=== PATIENT | female | born 1945 | race American Indian/Alaskan Native ===

== ENCOUNTER 2017-03-14 08:09 | Emergency (ER) | payer OTHER ==
[2017-03-14 08:13] VITALS: BP 142/69; PULSE 62; RESP 18; TEMP 97.9; O2SAT 99
[2017-03-14] MEDS ORDERED: Sodium Chloride 0.9% 1,000 ML IV STA (08:19)
--- NOTE | 2017-03-14 08:23 | ED PDOC ---
HPI: General Adult Time Seen by Provider: 03/14/17 08:13 Chief Complaint (Nursing): Dizziness/Lightheaded Chief Complaint (Provider): Dizziness/Lightheaded History Per: Patient History/Exam Limitations: no limitations Onset/Duration Of Symptoms: Days Current Symptoms Are (Timing): Still Present Severity: Moderate Additional Complaint(s): Patient is a 72 year old female who presents to ED for evaluation of dizziness with nausea for 2 weeks. Patient notes symptoms worse with head movement. Denies headache, head injury, chest pain, palpations, syncope or vision change. Past Medical History Reviewed: Historical Data, Nursing Documentation, Vital Signs Vital Signs: Last Vital Signs Temp 97.9 F 03/14/17 08:12 Pulse 62 03/14/17 08:12 Resp 18 03/14/17 08:12 BP 142/69 03/14/17 08:12 Pulse Ox 99 03/14/17 08:23 - Medical History PMH: Diabetes, HIV, HTN, Hypercholesterolemia Denies: Chronic Kidney Disease - Surgical History Surgical History: Appendectomy, Cholecystectomy - Family History Family History: States: Hypertension - Living Arrangements Living Arrangements: With Family - Immunization History Hx Influenza Vaccination: Yes Hx Pneumococcal Vaccination: Yes - Home Medications Home Medications: Ambulatory Orders Medication Instructions Recorded Apixaban [Eliquis] 1 tab PO BID 09/19/16 Emtricitabine/Tenofovir Diso 1 tab PO DAILY 09/19/16 [Truvada 200 MG-300 MG] Gabapentin [Neurontin] 1 cap PO TID 09/19/16 Meclizine HCl 1 tab PO BID 09/19/16 Meloxicam [Mobic] 1 tab PO DAILY 09/19/16 Oxybutynin Chloride [Oxybutynin 1 tab PO DAILY 09/19/16 Chloride ER] Raltegravir Potassium [Isentress] 1 tab PO BID 09/19/16 Ranitidine HCl [Zantac] 1 tab PO DAILY 09/19/16 Meclizine [Meclizine*] 25 mg PO Q8 #15 tab 03/14/17 Ondansetron [Zofran] 4 mg PO Q8H #10 tab 03/14/17 - Allergies Allergies/Adverse Reactions: Allergies Allergy/AdvReac Type Severity Reaction Status Date / Time No Known Allergies Allergy Verified 09/19/16 18:53 Review of Systems ROS Statement: Except As Marked, All Systems Reviewed And Found Negative Constitutional: Negative for: Weakness Cardiovascular: Negative for: Chest Pain, Palpitations, Light Headedness Respiratory: Negative for: Shortness of Breath Gastrointestinal: Positive for: Nausea. Negative for: Vomiting, Abdominal Pain Musculoskeletal: Negative for: Neck Pain, Back Pain Neurological: Positive for: Dizziness. Negative for: Weakness, Numbness, Headache Physical Exam - Reviewed Nursing Documentation Reviewed: Yes Vital Signs Reviewed: Yes - Physical Exam Appears: Positive for: Non-toxic, No Acute Distress Head Exam: Positive for: ATRAUMATIC, NORMAL INSPECTION Skin: Positive for: Normal Color, Warm Eye Exam: Positive for: Normal appearance, EOMI, PERRL. Negative for: Nystagmus Neck: Positive for: Normal, Painless ROM, Supple Cardiovascular/Chest: Positive for: Regular Rate, Rhythm, Chest Non Tender. Negative for: Murmur Respiratory: Positive for: Normal Breath Sounds. Negative for: Respiratory Distress Extremity: Positive for: Normal ROM. Negative for: Pedal Edema, Calf Tenderness Neurologic/Psych: Positive for: Alert, Oriented. Negative for: Motor/Sensory Deficits - Laboratory Results Result Diagrams: 03/14/17 09:01 03/14/17 09:01 - ECG O2 Sat by Pulse Oximetry: 99 (RA) Pulse Ox Interpretation: Normal Medical Decision Making Medical Decision Making: Time: 0815 Initial impression: Dizziness Initial plan: -- EKG -- CMP -- CBC -- NSF, Zofran and Antivert Scribe Attestation: Documented by Lisa Carvajal acting as a scribe for Rome Mcrae MD MD Scribe Attestation: All medical record entries made by the Scribe were at my direction and personally dictated by me. I have reviewed the chart and agree that the record accurately reflects my personal performance of the history, physical exam, medical decision making, and the department course for this patient. I have also personally directed, reviewed, and agree with the discharge instructions and disposition. Disposition - Clinical Impression Clinical Impression: Vertigo - Patient ED Disposition Is Patient to be Admitted: No Counseled Patient/Family Regarding: Studies Performed, Diagnosis, Need For Followup, Rx Given - Disposition Referrals: [facility] [Outside] Disposition: Routine/Home Disposition Time: 10:09 Condition: FAIR Prescriptions: Meclizine [Meclizine*] 25 mg PO Q8 #15 tab Ondansetron [Zofran] 4 mg PO Q8H #10 tab Instructions: Vertigo (ED) Print Language: SETSWANA
[2017-03-14 09:39] LABS: BASO # 0.1 K/uL (0.0-0.2); BASO % 2.1 % (0.0-2.0); EOS # 0.3 K/uL (0.0-0.7); EOS % 4.4 % (0.0-4.0); HEMATOCRIT 32.9 % (34.0-47.0); LYMPH # 0.6 K/uL (1.0-4.3); LYMPH % 9.7 % (20.0-40.0); MEAN CELL VOLUME 85.2 fl (81.0-99.0); MEAN CORPUSCULAR HEMOGLOBIN 28.1 pg (27.0-31.0); MEAN PLATELET VOLUME 8.4 fl (7.2-11.7); MONO # 0.7 K/uL (0.0-0.8); MONO % 10.7 % (0.0-10.0); NEUT # 4.7 K/uL (1.8-7.0); NEUT % 73.1 % (50.0-75.0); NRBC % 0.2 % (0.0-0.0); PLATELET COUNT 260 K/uL (130-400); WHITE BLOOD COUNT 6.4 K/uL (4.8-10.8)
[2017-03-14 09:58] LABS: ALKALINE PHOSPHATASE 97 U/L (38-126); ALT/SGPT 30 U/L (9-52); AST/SGOT 49 U/L (14-36); BILIRUBIN,TOTAL 1.2 mg/dl (0.2-1.3); BLOOD UREA NITROGEN 17 mg/dl (7-17); CALCIUM 10.1 mg/dL (8.4-10.2); CARBON DIOXIDE 18 mmol/L (22-30); CHLORIDE 109 mmol/L (98-107); GFR AFRICAN-AMERICAN > 60; GLUCOSE,RANDOM 76 mg/dL (65-105); POTASSIUM 4.4 MMOL/L (3.6-5.0); SODIUM 144 mmol/l (132-148); TOTAL PROTEIN 8.9 G/DL (6.3-8.2)
[2017-03-14 10:03] LABS: ALB/GLOB RATIO 0.9 (1.0-2.1)
[2017-03-14 12:59] LABS: BASOPHIL 1 % (0-2); EOSINOPHIL 4 % (0-7); NEUTROPHIL 73 % (42-75); TOTAL CELLS COUNTED 100
[2017-03-14 13:14] LABS: LARGE PLATELETS PRESENT
--- NOTE | 2017-03-16 05:42 | CARD ---
APPROVED REPORT EKG Measurement Heart [id number] NM [id number] <Conclusion> Normal sinus rhythm Normal ECG
== END 2017-03-14 10:35 | disposition home or self-care (01) ==
LOC: H.ER 08:09
DX: R42 Dizziness and giddiness (principal); E11.9 Type 2 diabetes mellitus without complications; E78.00 Pure hypercholesterolemia, unspecified; I10 Essential (primary) hypertension; Z79.01 Long term (current) use of anticoagulants; R11.0 Nausea
CPT/HCPCS: 80053; 82948; 85025; 93005; 96374; 99284; J2405; J7040

== ENCOUNTER 2017-03-25 02:03 | Inpatient (IN) | payer OTHER ==
--- NOTE | 2017-03-25 02:43 | ED PDOC ---
HPI:Nausea, Vomiting, Diarrhea Time Seen by Provider: 03/25/17 02:08 Chief Complaint (Nursing): Abdominal Pain Chief Complaint (Provider): nausea, vomiting, abdominal pain History Per: Patient History/Exam Limitations: no limitations Onset/Duration Of Symptoms: Hrs Current Symptoms Are (Timing): Still Present Have you had recent travel within the past 21 days to any of the following countries: [place], [place], [place] or [place]?: No Last Bowel Movement: Today Additional Complaint(s): Hayley Cartagena is a 72 year old patient who presents to the ED complaining of nausea and vomiting (non-bloody, non-bilious). Patient had a molar extraction yesterday morning then ate some soup and felt fine all day. She took 1 amoxicillin pill and 2 tylenol with codeine pills as prescribed post procedure. 30 to 60 minutes after she experienced nausea and over 5 episodes of vomiting. Patient also complains of epigastric pain. Denies diarrhea and states that she had a normal bowel movement this morning. Of note, patient brought medications with her to the ED and is on meloxicam. Past Medical History Reviewed: Historical Data, Nursing Documentation, Vital Signs Vital Signs: Last Vital Signs Temp 98.7 F 03/25/17 02:21 Pulse 94 H 03/25/17 02:21 Resp 16 03/25/17 02:21 BP 117/66 03/25/17 02:21 Pulse Ox 97 03/25/17 02:21 - Medical History PMH: Diabetes, HIV, HTN, Hypercholesterolemia Denies: Chronic Kidney Disease - Surgical History Surgical History: Appendectomy, Cholecystectomy - Family History Family History: States: Hypertension - Immunization History Hx Influenza Vaccination: Yes Hx Pneumococcal Vaccination: Yes - Home Medications Home Medications: Ambulatory Orders Medication Instructions Recorded Acetaminophen with Codeine 1 tab PO Q4 PRN 03/25/17 [Tylenol with Codeine #3 Tablet] Amoxicillin [Amoxil 500 mg Cap] 500 mg PO TID 03/25/17 Dolutegravir Sodium [Tivicay] 50 mg PO DAILY 03/25/17 Emtricitabine/Tenofov Alafenam 1 tab PO DAILY 03/25/17 [Descovy 200-25 mg Tablet] Levocetirizine Dihydrochloride 5 mg PO HS 03/25/17 [Xyzal] Levothyroxine [Synthroid] 25 mcg PO DAILY 03/25/17 Meclizine [Antivert] 12.5 mg PO TID PRN 03/25/17 Meloxicam [Mobic] 15 mg PO DAILY 03/25/17 Pravastatin Sodium [Pravastatin 20 mg PO DAILY 03/25/17 Sodium] Sitagliptin Phos/Metformin HCl 1 tab PO BID 03/25/17 [Janumet 50-1,000 mg Tablet] Tramadol HCl [Ultram] 50 mg PO Q8 03/25/17 - Allergies Allergies/Adverse Reactions: Allergies Allergy/AdvReac Type Severity Reaction Status Date / Time No Known Allergies Allergy Verified 03/25/17 06:31 Review of Systems ROS Statement: Except As Marked, All Systems Reviewed And Found Negative Gastrointestinal: Positive for: Nausea, Vomiting, Abdominal Pain, Other (normal bowel movements yesterday.). Negative for: Diarrhea Physical Exam - Reviewed Nursing Documentation Reviewed: Yes Vital Signs Reviewed: Yes - Physical Exam Appears: Positive for: Well, No Acute Distress Head Exam: Positive for: ATRAUMATIC, NORMAL INSPECTION, NORMOCEPHALIC Skin: Positive for: Normal Color, Warm, Dry Eye Exam: Positive for: Normal appearance, EOMI, PERRL ENT: Positive for: Other (left upper molar extraction, no active bleeding) Neck: Positive for: Normal, Painless ROM, Supple Cardiovascular/Chest: Positive for: Regular Rate, Rhythm. Negative for: Murmur , Tachycardia Respiratory: Positive for: Normal Breath Sounds. Negative for: Wheezing, Respiratory Distress Gastrointestinal/Abdominal: Positive for: Bowel Sounds, Soft, Tenderness ( tender to palpation epigastrium). Negative for: Guarding, Rebound Back: Positive for: Normal Inspection. Negative for: L CVA Tenderness, R CVA Tenderness Extremity: Positive for: Normal ROM. Negative for: Deformity, Swelling Neurologic/Psych: Positive for: Alert, Oriented - Laboratory Results Result Diagrams: 03/25/17 02:40 03/26/17 05:10 - ECG O2 Sat by Pulse Oximetry: 97 Pulse Ox Interpretation: Normal (RA) Medical Decision Making Medical Decision Makin: Impression: Gastritis vs. medication side effect Plan: * CMP * Lipase * CBC * Zofran 4mg IVP, Protonix 40mg IVP * UA * Reevaluation Patient s/o to Dr. Humphrey at [address] Scribe Attestation: Documented by Maral Gonzalez, barak under Hilaria Schwartz acting as a scribe for Abdi Perea MD. Provider Scribe Attestation: All medical record entries made by the Scribe were at my direction and personally dictated by me. I have reviewed the chart and agree that the record accurately reflects my personal performance of the history, physical exam, medical decision making, and the department course for this patient. I have also personally directed, reviewed, and agree with the discharge instructions and disposition. Disposition - Clinical Impression Clinical Impression: Elevated liver enzymes, Pneumonia, Sepsis, Common bile duct dilation - Patient ED Disposition Is Patient to be Admitted: Transfer of Care - Disposition Disposition: Transfer of Care Disposition Time: 07:00 Condition: FAIR Patient Signed Over To: Familia Humphrey Handoff Comments: pending CT - POA Present On Arrival: None
[2017-03-25 02:57] LABS: BASO % 0.3 % (0.0-2.0); EOS % 0.2 % (0.0-4.0); HEMATOCRIT 30.3 % (34.0-47.0); LYMPH # 0.1 K/uL (1.0-4.3); LYMPH % 0.7 % (20.0-40.0); MEAN CELL VOLUME 85.9 fl (81.0-99.0); MEAN CORPUSCULAR HEMOGLOBIN 29.5 pg (27.0-31.0); MEAN CORPUSCULAR HGB CONC 34.3 g/dL (33.0-37.0); MEAN PLATELET VOLUME 7.9 fl (7.2-11.7); MONO # 0.2 K/uL (0.0-0.8); MONO % 1.6 % (0.0-10.0); NEUT # 14.7 K/uL (1.8-7.0); NEUT % 97.2 % (50.0-75.0); PLATELET COUNT 240 K/uL (130-400); RED CELL DISTRIBUTION WIDTH 20.5 % (11.5-14.5); WHITE BLOOD COUNT 15.1 K/uL (4.8-10.8)
[2017-03-25 03:28] LABS: ALB/GLOB RATIO 0.9 (1.0-2.1); ALKALINE PHOSPHATASE 138 U/L (38-126); ALT/SGPT 149 U/L (9-52); AST/SGOT 446 U/L (14-36); BILIRUBIN,TOTAL 2.7 mg/dl (0.2-1.3); BLOOD UREA NITROGEN 18 mg/dl (7-17); CARBON DIOXIDE 24 mmol/L (22-30); CHLORIDE 111 mmol/L (98-107); GFR AFRICAN-AMERICAN > 60; GLUCOSE,RANDOM 121 mg/dL (65-105); LIPASE 219 U/L (23-300); POTASSIUM 3.8 MMOL/L (3.6-5.0); SODIUM 149 mmol/l (132-148); TOTAL PROTEIN 8.3 G/DL (6.3-8.2)
[2017-03-25 03:38] LABS: RBC URINE 2 /hpf (0-3); URINE BACTERIA RARE (<OCC); URINE BILIRUBIN NEGATIVE (NEGATIVE); URINE BLOOD NEGATIVE (NEGATIVE); URINE COLOR YELLOW (YELLOW); URINE GLUCOSE (UA) NEG (Normal); URINE KETONE NEGATIVE (NEGATIVE); URINE LEUKOCYTE ESTERASE NEGATIVE Leu/uL (Negative); URINE PROTEIN NEGATIVE (NEGATIVE); URINE UROBILINOGEN 0.2-1.0 mg/dL (0.2-1.0); WBC URINE 3 /hpf (0-5)
[2017-03-25] MEDS ORDERED: Iohexol 240 (50 ml) PO ONE (03:58)
[2017-03-25] MEDS ORDERED: Iohexol 240 (50 ml) ONE (04:02)
[2017-03-25 05:51] LABS: BASOPHIL 1 % (0-2); NEUTROPHIL 92 % (42-75); TOTAL CELLS COUNTED 100
[2017-03-25 05:52] LABS: PLATELET CLUMPS PRESENT
[2017-03-25] MEDS ORDERED: Sodium Chloride 0.9% 1,000 ML IV STA (06:57)
--- NOTE | 2017-03-25 07:32 | ED PDOC ---
- Laboratory Results Result Diagrams: 03/25/17 02:40 03/25/17 02:40 - ECG ECG: Positive for: Interpreted By Me, Viewed By Me ECG Rhythm: Positive for: Normal QRS, Sinus Rhythm, Nonspecific Changes O2 Sat by Pulse Oximetry: 97 (RA) Pulse Ox Interpretation: Normal - Radiology X-Ray: Interpreted by Me, Read By Radiologist X-Ray Interpretation: Infiltrates (? lower) - Progress ED Course And Treament: OTHER FINDINGS: Diffuse subcutaneous nodularity/infiltration. Rule out granulomatous disease process IMPRESSION: Apparent status post cholecystectomy with marked dilatation of distal common bile duct with radiopaque opacity distal common bile duct. Rule out calculi versus intraluminal mass. Fatty hepatic infiltration. Nodule left adrenal gland. Diffuse mottling of the osseous structures of uncertain etiology. Rule out infiltrative marrow disease process ; rule out metastasis See above discussion for additional findings and details. 1.4 cm cbd on US. 1104: Spoke with Dr. Shearer. Will admit tele. He will give further orders and consults. Medical Decision Making Medical Decision Makin signed over to me by Hilaria Perea MD pending CT, US, reassessment. Disposition Doctor Will See Patient In The: ED - Clinical Impression Clinical Impression: Elevated liver enzymes, Pneumonia, Sepsis, Common bile duct dilation - POA Present On Arrival: None - Disposition Disposition: Admitted as In-Patient Disposition Time: 11:06 Condition: FAIR Additional Comments - Additional Comments Additional Comments: Scribe Attestation: Documented by Salinas Alvarado acting as a scribe for Romulo Humphrey MD. Provider Scribe Attestation: All medical record entries made by the Scribe were at my direction and personally dictated by me. I have reviewed the chart and agree that the record accurately reflects my personal performance of the history, physical exam, medical decision making, and the department course for this patient. I have also personally directed, reviewed, and agree with the discharge instructions and disposition.
[2017-03-25] MEDS ORDERED: Iohexol 300 100 ML IJ ONE (07:56)
[2017-03-25] MEDS ORDERED: Sodium Chloride 0.9% 50 ML IV ONE (07:56)
--- NOTE | 2017-03-25 09:49 | CT ---
PROCEDURE: CT Abdomen and Pelvis with contrast HISTORY: abnl lfts, n/v epig pain, r/o cholecystitis COMPARISON: None. TECHNIQUE: Contrast dose: 95 Radiation dose: Total exam DLP = 435.60mGy-cm. This CT exam was performed using one or more of the following dose reduction techniques: Automated exposure control, adjustment of the mA and/or kV according to patient size, and/or use of iterative reconstruction technique. FINDINGS: LOWER THORAX: Atelectasis and scarring in the lower lungs. LIVER: Intrahepatic biliary ductal dilatation. Fatty hepatic infiltration GALLBLADDER AND BILE DUCTS: Apparent status post cholecystectomy. There is intrahepatic duct dilation and common bile ducts dilation in part n part secondary to cholecystectomy. Again seen are a few small rounded areas of increased density within the distal common bile duct axial images 31-35 that could represent tiny calculi. Other intraluminal mass not excluded. The dorsal pedis/MRCP recommended PANCREAS: Mildly prominent pancreatic duct SPLEEN: Elliptical calcification left upper quadrant could represent residual calcified splenic parenchyma ADRENALS: Unr slightly nodular appearing left adrenal gland KIDNEYS AND URETERS: Unremarkable. No hydronephrosis. No solid mass. VASCULATURE: Unremarkable. No aortic aneurysm. BOWEL: Evaluation of the bowel is limited due to incomplete opacification. Stomach is nondistended. No evidence acute mechanical bowel obstruction. Oral contrast material opacifies the colon to the level of the distal transverse colon region. APPENDIX: Normal appendix. PERITONEUM: Unremarkable. No free fluid. No free air. LYMPH NODES: Unremarkable. No enlarged lymph nodes. BLADDER: Unremarkable. REPRODUCTIVE: Uterus not visualized. BONES: Diffuse bony mottling of uncertain etiology clinical correlation recommended ; rule out infiltrative marrow disease process. Possibility of metastatic disease not exclude. Bilateral total hip prostheses OTHER FINDINGS: Diffuse subcutaneous nodularity/infiltration. Rule out granulomatous disease process IMPRESSION: Apparent status post cholecystectomy with marked dilatation of distal common bile duct with radiopaque opacity distal common bile duct. Rule out calculi versus intraluminal mass. Fatty hepatic infiltration. Nodule left adrenal gland. Diffuse mottling of the osseous structures of uncertain etiology. Rule out infiltrative marrow disease process ; rule out metastasis See above discussion for additional findings and details.
[2017-03-25] MEDS ORDERED: cefTRIAXone (Rocephin) 1 gm Inj IV ONE (10:25)
--- NOTE | 2017-03-25 10:26 | RAD ---
HISTORY: abd pain COMPARISON: 09/19/2016 FINDINGS: LUNGS: Linear opacities at both lung bases which may represent early infiltrate or areas of subsegmental atelectasis. No consolidation elsewhere. PLEURA: No significant pleural effusion identified, no pneumothorax apparent. CARDIOVASCULAR: Normal heart size. Mild congestive change. OSSEOUS STRUCTURES: Severe bilateral glenohumeral osteoarthritis. VISUALIZED UPPER ABDOMEN: Normal. OTHER FINDINGS: None. IMPRESSION: Infiltrate versus atelectasis both lung bases. Please correlate clinically. Follow-up advised.
--- NOTE | 2017-03-25 10:35 | US ---
HISTORY: r/o cholecystitis COMPARISON: None. TECHNIQUE: Sonographic evaluation of the right upper quadrant of the abdomen. FINDINGS: LIVER: Measures 15.7 cm in length. Normal echogenicity of the liver parenchyma. No mass. Intrahepatic biliary ductal dilatation is noted. GALLBLADDER: Status post cholecystectomy COMMON BILE DUCT: Measures 14 mm. No evidence of choledocholithiasis. No common duct calculi are appreciated. However, there is likely choledocholithiasis demonstrated on CT examination of the same morning. PANCREAS: Normal size. No mass. Mild pancreatic ductal dilatation is noted. No peripancreatic fluid appreciated. RIGHT KIDNEY: Measures 9.6 cm in length. Normal echogenicity. No calculus, mass, or hydronephrosis. AORTA: No aneurysmal dilatation. IVC: Unremarkable. OTHER FINDINGS: None . IMPRESSION: Intra and extrahepatic biliary ductal dilatation and pancreatic ductal dilatation. CT examination of the same date demonstrates distal common bile duct calculi. Findings are likely due to choledocholithiasis though this is not directly demonstrated on this ultrasound examination. No evidence of pancreatitis. Status post cholecystectomy.
--- NOTE | 2017-03-25 11:54 | CP.PCM.HP ---
History of Present Illness - History of Present Illness History of Present Illness: CC:Vomiting HPI: Randee Cartagena is a 72 year old patient who presents to the ED complaining of nausea and vomiting (non-bloody, non-bilious). Patient had a molar extraction yesterday morning then ate some soup and felt fine all day. She took 1 amoxicillin pill and 2 tylenol with codeine pills as prescribed post procedure. 30 to 60 minutes after she experienced nausea and over 5 episodes of vomiting. Patient also complains of epigastric pain. Denies diarrhea and states that she had a normal bowel movement this morning. Also C/O Associated dizziness and dryness to the mouth. Present on Admission - Present on Admission Any Indicators Present on Admission: Yes History of DVT/PE: No History of Uncontrolled Diabetes: Yes Urinary Catheter: No Decubitus Ulcer Present: No Review of Systems - Review of Systems All systems: reviewed and no additional remarkable complaints except Past Patient History - Infectious Disease Hx of Infectious Diseases: None - Past Medical History & Family History Past Medical History?: Yes Past Family History: Reviewed and not pertinent - Past Social History Smoking Status: Never Smoked Alcohol: None Drugs: Denies - CARDIAC Hx Hypercholesterolemia: Yes Hx Hypertension: Yes - PULMONARY Hx Respiratory Disorders: No - NEUROLOGICAL Hx Neurological Disorder: No - HEENT Hx HEENT Problems: No - RENAL Hx Chronic Kidney Disease: No - ENDOCRINE/METABOLIC Hx Endocrine Disorders: Yes Hx Diabetes Mellitus Type 2: Yes - HEMATOLOGICAL/ONCOLOGICAL Hx Human Immunodeficiency Virus (HIV): Yes - MUSCULOSKELETAL/RHEUMATOLOGICAL Hx Falls: No - PSYCHIATRIC Hx Psychophysiologic Disorder: No Hx Substance Use: No - SURGICAL HISTORY Hx Appendectomy: Yes Hx Cholecystectomy: Yes - ANESTHESIA Hx Anesthesia: Yes Hx Anesthesia Reactions: No Hx Malignant Hyperthermia: No Meds Home Medications: Home Medication List Medication Instructions Recorded Confirmed Type Cephalexin [Keflex] 500 mg PO Q8 #9 capsule 03/30/17 Rx Allergies/Adverse Reactions: Allergies Allergy/AdvReac Type Severity Reaction Status Date / Time No Known Allergies Allergy Verified 03/25/17 06:31 Physical Exam - Constitutional Appears: In Acute Distress - Head Exam Head Exam: ATRAUMATIC, NORMAL INSPECTION, NORMOCEPHALIC - Eye Exam Eye Exam: EOMI, Normal appearance, PERRL Pupil Exam: NORMAL ACCOMODATION, PERRL - ENT Exam ENT Exam: Mucous Membranes Moist, Normal Exam - Neck Exam Neck exam: Positive for: Full Rom, Normal Inspection - Respiratory Exam Respiratory Exam: Clear to Auscultation Bilateral, NORMAL BREATHING PATTERN - Cardiovascular Exam Cardiovascular Exam: REGULAR RHYTHM, +S1, +S2 - GI/Abdominal Exam GI & Abdominal Exam: Guarding, Normal Bowel Sounds, Tenderness. absent: Rebound , Rigid - Extremities Exam Extremities exam: Positive for: normal inspection - Back Exam Back exam: NORMAL INSPECTION - Neurological Exam Neurological exam: Alert, CN II-XII Intact, Normal Gait, Oriented x3, Reflexes Normal - Psychiatric Exam Psychiatric exam: Normal Affect, Normal Mood - Skin Skin Exam: Dry, Intact, Normal Color, Warm Results - Vital Signs Recent Vital Signs: Last Vital Signs Temp 100.1 F H 03/25/17 07:30 Pulse 82 03/25/17 07:30 Resp 18 03/25/17 07:30 BP 110/69 03/25/17 07:30 Pulse Ox 97 03/25/17 11:06 - Labs Result Diagrams: 03/28/17 05:00 03/30/17 12:57 Labs: Abnormal LFTs - Imaging and Cardiology CT scan - abdomen/Pelvis: Status: Report reviewed by me Additional comment: IMPRESSION: Apparent status post cholecystectomy with marked dilatation of distal common bile duct with radiopaque opacity distal common bile duct. Rule out calculi versus intraluminal mass. Fatty hepatic infiltration. Nodule left adrenal gland. Diffuse mottling of the osseous structures of uncertain etiology. Rule out infiltrative marrow disease process ; rule out metastasis US - abdomen Status: Report reviewed by me Additional comment: IMPRESSION: Intra and extrahepatic biliary ductal dilatation and pancreatic ductal dilatation. CT examination of the same date demonstrates distal common bile duct calculi. Findings are likely due to choledocholithiasis though this is not directly demonstrated on this ultrasound examination. No evidence of pancreatitis. Status post cholecystectomy. 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
[2017-03-25] MEDS ORDERED: cefTRIAXone (Rocephin) 1 gm Inj ONE (12:16)
[2017-03-25] MEDS ORDERED: Piperacillin/Tazobact 3.375 GM in Sodium Chloride 0.9% 100 ML IVPB STA (16:50)
[2017-03-25] MEDS: DOLUTEGRAVIR SODIUM 50 MG PO SCH (17:14)
[2017-03-25] MEDS: Sodium Chloride 0.9% 1,000 ML IV SCH ×2 (17:15→21:30)
--- NOTE | 2017-03-25 17:46 | CP.PCM.CON ---
History of Present Illness - History of Present Illness History of Present Illness: 72 year old patient who presents to the ED complaining of nausea and vomiting ( non-bloody, non-bilious). Patient had a molar extraction yesterday morning then ate some soup and felt fine all day. She took 1 amoxicillin pill and 2 tylenol with codeine pills as prescribed post procedure. 30 to 60 minutes after she experienced nausea and over 5 episodes of vomiting. Patient also complains of epigastric pain. Denies diarrhea and states that she had a normal bowel movement this morning. found to have dilated bile ducts with possible CBD stone - Medical History PMH: Diabetes,, HTN, Hypercholesterolemia Denies: Chronic Kidney Disease SURG: Cholecystectomy Review of Systems - Constitutional Constitutional: As Per HPI, Anorexia, Chills, Malaise, Weakness - EENT Eyes: absent: As Per HPI, Blind Spots, Blurred Vision, Change in Vision, Decreased Night Vision, Diplopia, Discharge, Dry Eye, Exophthalmos, Floaters, Irritation, Itchy Eyes, Loss of Peripheral Vision, Pain, Photophobia, Requires Corrective Lenses, Sees Flashes, Spots in Vision, Tunnel Vision, Other Visual Disturbances, Loss of Vision, Other Ears: absent: As Per HPI, Decreased Hearing, Ear Discharge, Ear Pain, Tinnitus, Abnormal Hearing, Disequilibrium, Dizziness, Other Nose/Mouth/Throat: absent: As Per HPI, Epistaxis, Nasal Congestion, Nasal Discharge, Nasal Obstruction, Nasal Trauma, Nose Pain, Post Nasal Drip, Sinus Pain, Sinus Pressure, Bleeding Gums, Change in Voice, Dental Pain, Dry Mouth, Dysphagia, Halitosis, Hoarsness, Lip Swelling, Mouth Lesions, Mouth Pain, Odynophagia, Sore Throat, Throat Swelling, Tongue Swelling, Facial Pain, Neck Pain, Neck Mass, Other - Breasts Breasts: absent: As Per HPI, Change in Shape, Mass, Pain, Nipple Discharge, Nipple Inversion, Skin Changes, Swelling, Other - Cardiovascular Cardiovascular: absent: As Per HPI, Acrocyanosis, Chest Pain, Chest Pain at Rest , Chest Pain with Activity, Claudication, Diaphoresis, Dyspnea, Dyspnea on Exertion, Edema, Irregular Heart Rhythm, Pain Radiating to Arm/Neck/Jaw, Leg Edema, Leg Ulcers, Lightheadedness, Orthopnea, Palpitations, Paroxysmal Nocturnal Dyspnea, Pedal Edema, Radiating Pain, Rapid Heart Rate, Slow Heart Rate, Syncope, Other - Respiratory Respiratory: absent: As Per HPI, Cough, Dyspnea, Hemoptysis, Dyspnea on Exertion , Wheezing, Snoring, Stridor, Pain on Inspiration, Chest Congestion, Excessive Mucous Production, Change in Mucous Color, Pain with Coughing, Other - Gastrointestinal Gastrointestinal: As Per HPI, Abdominal Pain - Genitourinary Genitourinary: absent: As Per HPI, Change in Urinary Stream, Difficulty Urinating, Dysuria, Flank Pain, Hematuria, Pyuria, Nocturia, Urinary Incontinence, Urinary Frequency, Urinary Hesitance, Urinary Urgency, Voiding Freq/Small Amts, Freq UTI, Hx Renal/Bladder Calculi, Hx /Renal Surgery, Bladder Distension, Other - Reproductive: Female Reproductive:Female: absent: As Per HPI, Amenorrhea, Amenorrhea/ Control, Currently Menstual, Cycle <21 Days, Cycle >35 Days, Cycle Variable, Menses 1-7 Days, Menses >/= 8 Days, Menses Variable, Cycle > 4 Weeks Between, No Menses for 6 Months, Heavy Menses, Light Menses, Normal Menses, Spotting Between Cycles , S/P Hysterectomy, Menopausal, Post Menopausal, Premenarche, Abnormal Vaginal Bleeding, Dysmenorrhea, Dyspareunia, Genital Lesions, Genital Pruritis, Pelvic Pain, Prolapse Symptoms, Sexual Dysfunction, Vaginal Discharge, Vaginal Dryness , Vaginal Odor, Vaginal Pruritis, Other - Menstruation Menstruation: absent: As Per HPI, Amenorrhea, Amenorrhea/ Control, Currently Menstual, Cycle <21 Days, Cycle >35 Days, Cycle Variable, Menses 1-7 Days, Menses >/= 8 Days, Menses Variable, Cycle > 4 Weeks Between, No Menses for 6 Months, Heavy Menses, Light Menses, Normal Menses, Spotting Between Cycles , S/P Hysterectomy, Menopausal, Post Menopausal, Premenarche, Abnormal Vaginal Bleeding, Dysmenorrhea, Other - Musculoskeletal Musculoskeletal: absent: As Per HPI, Abnormal Gait, Arthralgias, Atrophy, Back Pain, Deformity, Joint Swelling, Limited Range of Motion, Loss of Height, Muscle Cramps, Muscle Weakness, Myalgias, Neck Pain, Numbness, Radiating Pain into Limb, Stiffness, Tingling, Other - Integumentary Integumentary: absent: As Per HPI, Acne, Alopecia, Bleeding Lesions, Change in Hair, Change in Nails, Change in Pigmentation, Changing Lesions, Dry Skin, Erythema, Furuncle, Hirsutism, Lesions, New Lesions, Non-Healing Lesions, Photosensitivity, Pruritus, Rash, Skin Pain, Skin Ulcer, Sores, Striae, Swelling , Unusual Bruising, Wounds, Jaundice, Other - Neurological Neurological: absent: As Per HPI, Abnormal Gait, Abnormal Hearing, Abnormal Movements, Abnormal Speech, Behavioral Changes, Burning Sensations, Confusion, Convulsions, Disequilibrium, Dizziness, Numbness, Focal Weakness, Frequent Falls , Headaches, Lack of Coordination, Loss of Vision, Memory Loss, Paresthesias, Radicular Pain, Restless Legs, Sensory Deficit, Syncope, Tingling, Tremor, Vertigo, Weakness, Other Visual Disturbances, Other - Psychiatric Psychiatric: absent: As Per HPI, Abnormal Sleep Pattern, Anhedonia, Anxiety, Auditory Hallucinations, Behavioral Changes, Change in Appetite, Change in Libido, Confusion, Depression, Difficulty Concentrating, Hallucinations, Homicidal Ideation, Hopelessness, Irritability, Memory Loss, Mood Swings, Panic Attacks, Paranoia, Suicidal Ideation, Visual Hallucinations, Tactile Hallucinations, Other - Endocrine Endocrine: absent: As Per HPI, Change in Body Appearance, Change in Libido, Cold Intolorance, Deepening of Voice, Excessive Sweating, Fatigue, Flushing, Heat Intolorance, Increase in Ring/Shoe/Hat Size, Palpitations, Polydipsia, Polyphagia, Polyuria, Other - Hematologic/Lymphatic Hematologic: absent: As Per HPI, Easy Bleeding, Easy Bruising, Lymphadenopathy, Other Past Patient History - Past Medical History & Family History Past Medical History?: Yes - Past Social History Smoking Status: Never Smoked - CARDIAC Hx Hypercholesterolemia: Yes Hx Hypertension: Yes - PULMONARY Hx Respiratory Disorders: No - NEUROLOGICAL Hx Neurological Disorder: No - HEENT Hx HEENT Problems: No - RENAL Hx Chronic Kidney Disease: No - ENDOCRINE/METABOLIC Hx Endocrine Disorders: Yes - HEMATOLOGICAL/ONCOLOGICAL Hx Human Immunodeficiency Virus (HIV): Yes - MUSCULOSKELETAL/RHEUMATOLOGICAL Hx Falls: No - PSYCHIATRIC Hx Psychophysiologic Disorder: No - SURGICAL HISTORY Hx Appendectomy: Yes Hx Cholecystectomy: Yes - ANESTHESIA Hx Anesthesia: Yes Hx Anesthesia Reactions: No Hx Malignant Hyperthermia: No Meds Allergies/Adverse Reactions: Allergies Allergy/AdvReac Type Severity Reaction Status Date / Time No Known Allergies Allergy Verified 03/25/17 06:31 - Medications Medications: Current Medications Acetaminophen (Tylenol 325mg Tab) 650 mg PO Q6 PRN PRN Reason: Fever >100.4 F Home Med (Patient's Own Medication) 1 unit PO DAILY [facility] Home Med (Patient's Own Medication) 1 unit PO DAILY [facility] Last Admin: 03/25/17 17:14 Dose: 1 unit Sodium Chloride (Sodium Chloride 0.9%) 1,000 mls @ 100 mls/hr IV .Q10H [facility] Stop: 03/26/17 11:31 Last Admin: 03/25/17 17:15 Dose: 100 mls/hr Azithromycin 500 mg/ Sodium (Chloride) 250 mls @ 250 mls/hr IVPB DAILY [facility] Piperacillin Sod/Tazobactam (Sod 3.375 gm/ Sodium Chloride) 100 mls @ 100 mls/ hr IVPB STAT [facility] Stop: 03/25/17 17:49 Last Admin: 03/25/17 17:02 Dose: 100 mls/hr Levothyroxine Sodium (Synthroid) 25 mcg PO DAILY@0630 [facility] Metformin HCl (Glucophage) 1,000 mg PO BID [facility] Last Admin: 03/25/17 17:14 Dose: 1,000 mg Pravastatin Sodium (Pravachol) 20 mg PO DAILY [facility] Sitagliptin Phosphate (Januvia) 100 mg PO DAILY [facility] Tramadol HCl (Ultram) 50 mg PO Q8 [facility] Last Admin: 03/25/17 17:19 Dose: 50 mg Physical Exam - Constitutional Appears: Non-toxic, Chronically Ill - Head Exam Head Exam: ATRAUMATIC, NORMAL INSPECTION, NORMOCEPHALIC - Eye Exam Eye Exam: PERRL. absent: Scleral icterus - ENT Exam ENT Exam: Mucous Membranes Dry, Normal External Ear Exam, Normal Oropharynx - Neck Exam Neck exam: Negative for: Lymphadenopathy - Respiratory Exam Respiratory Exam: Decreased Breath Sounds, Rhonchi - Cardiovascular Exam Cardiovascular Exam: REGULAR RHYTHM, +S1, +S2 - GI/Abdominal Exam GI & Abdominal Exam: Diminished Bowel Sounds, Distended, Guarding, Soft, Tenderness. absent: Organomegaly, Pulsatile Mass, Rebound, Rigid - Rectal Exam Rectal Exam: Deferred - Exam Exam: NORMAL INSPECTION - Extremities Exam Extremities exam: Positive for: pedal pulses present. Negative for: calf tenderness, pedal edema, tenderness - Back Exam Back exam: absent: CVA tenderness (L), CVA tenderness (R), paraspinal tenderness - Neurological Exam Neurological exam: Alert, CN II-XII Intact, Oriented x3, Reflexes Normal - Psychiatric Exam Psychiatric exam: Normal Mood - Skin Skin Exam: Dry, Intact Results - Vital Signs Recent Vital Signs: Last Vital Signs Temp 98.7 F 03/25/17 16:00 Pulse 86 03/25/17 16:00 Resp 20 03/25/17 16:00 BP 102/55 L 03/25/17 16:00 Pulse Ox 97 03/25/17 16:00 - Labs Result Diagrams: 03/25/17 02:40 03/25/17 02:40 Labs: Laboratory Results - last 24 hr 03/25/17 16:19 POC Glucose (mg/dL) 120 H Assessment & Plan (1) Common bile duct dilation Status: Acute (2) Elevated liver enzymes Status: Acute (3) Pneumonia Status: Acute (4) Sepsis Status: Acute (5) Abdominal pain Status: Acute (6) Dehydration Status: Acute - Assessment and Plan (Free Text) Assessment: check cultures IV rx started GI and surgery on board
--- NOTE | 2017-03-25 21:22 | CP.PCM.CON ---
History of Present Illness - History of Present Illness History of Present Illness: GENERAL SURGERY CONSULT NOTE FOR DR. ALVAREZ 72yo F with PMHx of HIV, HTN, s/p cholecystectomy who presented to the ED with epigastric pain and vomiting. Yesterday, the patient had a dental procedure where 4 teeth were removed and when she got home she took 1 amoxicillin pill and 2 Tylenol with codeine as prescribed. About 30-60 minutes after that, around 7pm yesterday, she had nausea and vomited 5 times and developed epigastric pain. Currently, she states that her pain is completely gone. She last vomited around 2AM this morning. She denies diarrhea. Last BM was 2 days ago and she feels a bit constipated. 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 Allergies: none Social history: wine occasionally, never smoked, denies drug use Review of Systems - Review of Systems All systems: reviewed and no additional remarkable complaints except (as per HPI ) Past Patient History - Past Medical History & Family History Past Medical History?: Yes - Past Social History Smoking Status: Never Smoked - CARDIAC Hx Hypercholesterolemia: Yes Hx Hypertension: Yes - PULMONARY Hx Respiratory Disorders: No - NEUROLOGICAL Hx Neurological Disorder: No - HEENT Hx HEENT Problems: No - RENAL Hx Chronic Kidney Disease: No - ENDOCRINE/METABOLIC Hx Endocrine Disorders: Yes - HEMATOLOGICAL/ONCOLOGICAL Hx Human Immunodeficiency Virus (HIV): Yes - MUSCULOSKELETAL/RHEUMATOLOGICAL Hx Falls: No - PSYCHIATRIC Hx Psychophysiologic Disorder: No - SURGICAL HISTORY Hx Appendectomy: Yes Hx Cholecystectomy: Yes - ANESTHESIA Hx Anesthesia: Yes Hx Anesthesia Reactions: No Hx Malignant Hyperthermia: No Meds Allergies/Adverse Reactions: Allergies Allergy/AdvReac Type Severity Reaction Status Date / Time No Known Allergies Allergy Verified 03/25/17 06:31 - Medications Medications: Current Medications Acetaminophen (Tylenol 325mg Tab) 650 mg PO Q6 PRN PRN Reason: Fever >100.4 F Home Med (Patient's Own Medication) 1 unit PO DAILY [facility] Home Med (Patient's Own Medication) 1 unit PO DAILY [facility] Last Admin: 03/25/17 17:14 Dose: 1 unit Sodium Chloride (Sodium Chloride 0.9%) 1,000 mls @ 100 mls/hr IV .Q10H [facility] Stop: 03/26/17 11:31 Last Admin: 03/25/17 17:15 Dose: 100 mls/hr Azithromycin 500 mg/ Sodium (Chloride) 250 mls @ 250 mls/hr IVPB DAILY [facility] Piperacillin Sod/Tazobactam (Sod 3.375 gm/ Sodium Chloride) 100 mls @ 100 mls/ hr IVPB Q6 [facility] Levothyroxine Sodium (Synthroid) 25 mcg PO DAILY@0630 [facility] Metformin HCl (Glucophage) 1,000 mg PO BID [facility] Last Admin: 03/25/17 17:14 Dose: 1,000 mg Pravastatin Sodium (Pravachol) 20 mg PO DAILY [facility] Sitagliptin Phosphate (Januvia) 100 mg PO DAILY [facility] Tramadol HCl (Ultram) 50 mg PO Q8 [facility] Last Admin: 03/25/17 17:19 Dose: 50 mg Physical Exam - Constitutional Appears: Non-toxic, No Acute Distress - Head Exam Head Exam: ATRAUMATIC, NORMAL INSPECTION - Respiratory Exam Respiratory Exam: NORMAL BREATHING PATTERN. absent: Respiratory Distress - Cardiovascular Exam Cardiovascular Exam: +S1, +S2 - GI/Abdominal Exam GI & Abdominal Exam: Soft, Tenderness (mild tenderness in epigastric area). absent: Distended, Firm, Guarding, Rebound, Rigid - Extremities Exam Extremities exam: Positive for: normal inspection. Negative for: calf tenderness, pedal edema - Neurological Exam Neurological exam: Alert, CN II-XII Intact, Oriented x3 - Psychiatric Exam Psychiatric exam: Normal Affect, Normal Mood - Skin Skin Exam: Dry, Normal Color, Warm Results - Vital Signs Recent Vital Signs: Last Vital Signs Temp 97.7 F 03/25/17 20:15 Pulse 77 03/25/17 20:15 Resp 18 03/25/17 20:15 BP 100/57 L 03/25/17 20:15 Pulse Ox 99 03/25/17 20:15 - Labs Result Diagrams: 03/25/17 02:40 03/25/17 02:40 Labs: Laboratory Results - last 24 hr 03/25/17 16:19 POC Glucose (mg/dL) 120 H Assessment & Plan - Assessment and Plan (Free Text) Assessment: 72yo F with PMHx of HIV, HTN, s/p cholecystectomy who presented to the ED with epigastric pain and vomiting and is found to have possible choledocholithiasis on CT - Afebrile currently, Tmax 100.1 - Leukocytosis WBC 15.1 - T bili elevated at 2.7 - Elevated LFTs, AST 446, ALT 149 - Alk phos 138 - Lipase WNL - US: CBD 14mm, no evidence of choledocholithiasis, mild pancreatic ductal dilation - CT: intrahepatic duct dilation and CBD dilation, few small rounded areas of increased density within CBD, could represent tiny calculi vs intraluminal mass - MRCP unable to be done due to patient's history of aneurysmal clips. She states that she was told at that time that she could not have an MRI. - Recommend GI eval and ERCP - Discussed plan with Dr. Matteo Hughes PGY-2
[2017-03-25] MEDS: Piperacillin/Tazobact 3.375 GM in Sodium Chloride 0.9% 100 ML IVPB SCH (21:33)
[2017-03-26] MEDS: Piperacillin/Tazobact 3.375 GM in Sodium Chloride 0.9% 100 ML IVPB SCH ×4 (03:57→21:32)
[2017-03-26] MEDS: Levothyroxine 25 MCG TAB PO SCH (06:28)
[2017-03-26 07:22] LABS: ALB/GLOB RATIO 0.8 (1.0-2.1); ALKALINE PHOSPHATASE 105 U/L (38-126); ALT/SGPT 160 U/L (9-52); AST/SGOT 203 U/L (14-36); BILIRUBIN,TOTAL 1.3 mg/dl (0.2-1.3); BLOOD UREA NITROGEN 14 mg/dl (7-17); CALCIUM 8.7 mg/dL (8.4-10.2); CARBON DIOXIDE 23 mmol/L (22-30); CHLORIDE 107 mmol/L (98-107); GFR AFRICAN-AMERICAN > 60; GLUCOSE,RANDOM 80 mg/dL (65-105); POTASSIUM 4.6 MMOL/L (3.6-5.0); SODIUM 139 mmol/l (132-148); TOTAL PROTEIN 6.4 G/DL (6.3-8.2)
[2017-03-26 08:57] LABS: ABG ALLEN TEST YES; ARTERIAL BLOOD GAS HCO3 25.3 mmol/L (21-28); ARTERIAL BLOOD GAS PH 7.44 (7.35-7.45); ARTERIAL BLOOD GAS PO2 101 mm/Hg (80-100)
[2017-03-26] MEDS ORDERED: Pravastatin Sodium 20 MG TAB PO SCH (09:00)
[2017-03-26] MEDS ORDERED: Patient's Own Med (Emtricitabine/Tenofov Alafenam [Descovy 200-25 Mg Tablet] 1 TAB) PO SCH (09:00)
[2017-03-26] MEDS ORDERED: TIVICAY 50 MG PO SCH (09:00)
[2017-03-26] MEDS: DOLUTEGRAVIR SODIUM 50 MG PO SCH (09:20)
[2017-03-26] MEDS: DESCOVY PO SCH (09:20)
[2017-03-26] MEDS: Sodium Chloride 0.9% 1,000 ML IV SCH (09:21)
--- NOTE | 2017-03-26 10:40 | CP.PCM.PN ---
<James Mandujano - Last Filed: 03/26/17 10:36> Subjective - Date & Time of Evaluation Date of Evaluation: 03/26/17 Time of Evaluation: 10:15 - Subjective Subjective: General Surgery Pt S&E, YELITZAEO. Pt says pain has improved since yesterday but is still present in the epigastrum. C/O thirst. Denies F/C, N/V/D, chest pain, SOB, back pain, and dysuria. Objective - Vital Signs/Intake and Output Vital Signs (last 24 hours): Temp Pulse Resp BP Pulse Ox 98.2 F 64 18 108/64 97 03/26/17 08:33 03/26/17 08:33 03/26/17 08:33 03/26/17 08:33 03/26/17 10:26 Intake and Output: 03/26/17 03/26/17 06:59 18:59 Intake Total 1000 1000 Balance 1000 1000 - Medications Medications: Current Medications Acetaminophen (Tylenol 325mg Tab) 650 mg PO Q6 PRN PRN Reason: Fever >100.4 F Home Med (Patient's Own Medication) 1 unit PO DAILY [facility] Last Admin: 03/26/17 09:20 Dose: Not Given Home Med (Patient's Own Medication) 1 unit PO DAILY [facility] Last Admin: 03/26/17 09:20 Dose: Not Given Sodium Chloride (Sodium Chloride 0.9%) 1,000 mls @ 100 mls/hr IV .Q10H [facility] Stop: 03/26/17 11:31 Last Admin: 03/26/17 09:21 Dose: 100 mls/hr Azithromycin 500 mg/ Sodium (Chloride) 250 mls @ 250 mls/hr IVPB DAILY [facility] Piperacillin Sod/Tazobactam (Sod 3.375 gm/ Sodium Chloride) 100 mls @ 100 mls/ hr IVPB Q6 [facility] Last Admin: 03/26/17 09:31 Dose: 100 mls/hr Levothyroxine Sodium (Synthroid) 25 mcg PO DAILY@0630 [facility] Last Admin: 03/26/17 06:28 Dose: Not Given Metformin HCl (Glucophage) 1,000 mg PO BID [facility] Last Admin: 03/26/17 09:20 Dose: Not Given Pravastatin Sodium (Pravachol) 20 mg PO DAILY [facility] Last Admin: 03/26/17 09:21 Dose: Not Given Sitagliptin Phosphate (Januvia) 100 mg PO DAILY [facility] Last Admin: 03/26/17 09:20 Dose: Not Given Tramadol HCl (Ultram) 50 mg PO Q8 [facility] Last Admin: 03/26/17 09:21 Dose: Not Given - Labs Labs: 03/26/17 05:10 - Constitutional Appears: Non-toxic, In Acute Distress - Head Exam Head Exam: ATRAUMATIC, NORMOCEPHALIC - Eye Exam Eye Exam: EOMI. absent: Scleral icterus - ENT Exam ENT Exam: Mucous Membranes Dry - Respiratory Exam Respiratory Exam: NORMAL BREATHING PATTERN. absent: Respiratory Distress - Cardiovascular Exam Cardiovascular Exam: RRR, +S1, +S2 - GI/Abdominal Exam GI & Abdominal Exam: Guarding (mild), Soft, Tenderness (in epigastrum). absent : Distended, Firm, Rigid - Neurological Exam Neurological Exam: Alert, Awake - Skin Skin Exam: Dry, Warm Assessment and Plan - Assessment and Plan (Free Text) Assessment: 72F with prior Hx cholecystectomy with possible choledocholithiasis on CT Plan: F/U GI recs Monitor for fevers and worsening clinical condition. No emergent surgery at this time. Will D/W Dr. Matteo Mandujano PGY3 <Gigi Felipe - Last Filed: 03/26/17 14:15> Subjective - Subjective Subjective: Patient was seen and examined at the bedside. Agree with resident's note above Objective - Vital Signs/Intake and Output Vital Signs (last 24 hours): Temp Pulse Resp BP Pulse Ox 98.7 F 66 20 103/61 95 03/26/17 12:37 03/26/17 12:37 03/26/17 12:37 03/26/17 12:37 03/26/17 12:37 Intake and Output: 03/26/17 03/26/17 06:59 18:59 Intake Total 1000 1000 Balance 1000 1000 - Medications Medications: Current Medications Acetaminophen (Tylenol 325mg Tab) 650 mg PO Q6 PRN PRN Reason: Fever >100.4 F Home Med (Patient's Own Medication) 1 unit PO DAILY [facility] Last Admin: 03/26/17 09:20 Dose: Not Given Home Med (Patient's Own Medication) 1 unit PO DAILY [facility] Last Admin: 03/26/17 09:20 Dose: Not Given Azithromycin 500 mg/ Sodium (Chloride) 250 mls @ 250 mls/hr IVPB DAILY [facility] Last Admin: 03/26/17 13:21 Dose: 250 mls/hr Piperacillin Sod/Tazobactam (Sod 3.375 gm/ Sodium Chloride) 100 mls @ 100 mls/ hr IVPB Q6 [facility] Last Admin: 03/26/17 09:31 Dose: 100 mls/hr Levothyroxine Sodium (Synthroid) 25 mcg PO DAILY@0630 [facility] Last Admin: 03/26/17 06:28 Dose: Not Given Metformin HCl (Glucophage) 1,000 mg PO BID [facility] Last Admin: 03/26/17 09:20 Dose: Not Given Pravastatin Sodium (Pravachol) 20 mg PO DAILY [facility] Last Admin: 03/26/17 09:21 Dose: Not Given Sitagliptin Phosphate (Januvia) 100 mg PO DAILY [facility] Last Admin: 03/26/17 09:20 Dose: Not Given Tramadol HCl (Ultram) 50 mg PO Q8 [facility] Last Admin: 03/26/17 09:21 Dose: Not Given - Labs Labs: 03/26/17 12:07 03/26/17 05:10 Assessment and Plan - Assessment and Plan (Free Text) Plan: - Will require ERCP - Pain control - Continue antibiotics - Monitor LFTs - Will follow - No general surgery intervention at present time
[2017-03-26 12:29] LABS: HEMATOCRIT 26.1 % (34.0-47.0); MEAN CELL VOLUME 86.6 fl (81.0-99.0); MEAN CORPUSCULAR HEMOGLOBIN 30.4 pg (27.0-31.0); MEAN CORPUSCULAR HGB CONC 35.1 g/dL (33.0-37.0); RED CELL DISTRIBUTION WIDTH 20.4 % (11.5-14.5); WHITE BLOOD COUNT 8.6 K/uL (4.8-10.8)
--- NOTE | 2017-03-26 12:33 | CP.PCM.CON ---
History of Present Illness - History of Present Illness History of Present Illness: Gi consult requested by Dr Shearer- This is a 72 yr old F with PMHx of HIV, HTN, s /p cholecystectomy who presented to the ED with epigastric pain and vomiting. After the dental procedure yesterday she went home and took one dose of amoxicillin and tylenol. Currently, she states that her pain is completely gone. She last vomited around 2AM this morning. She denies diarrhea. Last BM was 2 days ago and she feels a bit constipated. Review of Systems - Review of Systems Review of Systems: 12 point ROS Unremarkable eXcept that documented in HPI Past Patient History - Past Medical History & Family History Past Medical History?: Yes - Past Social History Smoking Status: Never Smoked - CARDIAC Hx Hypercholesterolemia: Yes Hx Hypertension: Yes - PULMONARY Hx Respiratory Disorders: No - NEUROLOGICAL Hx Neurological Disorder: No - HEENT Hx HEENT Problems: No - RENAL Hx Chronic Kidney Disease: No - ENDOCRINE/METABOLIC Hx Endocrine Disorders: Yes - HEMATOLOGICAL/ONCOLOGICAL Hx Human Immunodeficiency Virus (HIV): Yes - MUSCULOSKELETAL/RHEUMATOLOGICAL Hx Falls: No - GASTROINTESTINAL Hx Gastrointestinal Disorders: No - GENITOURINARY/GYNECOLOGICAL Hx Genitourinary Disorders: No - PSYCHIATRIC Hx Psychophysiologic Disorder: No - SURGICAL HISTORY Hx Appendectomy: Yes Hx Cholecystectomy: Yes - ANESTHESIA Hx Anesthesia: Yes Hx Anesthesia Reactions: No Hx Malignant Hyperthermia: No Meds Allergies/Adverse Reactions: Allergies Allergy/AdvReac Type Severity Reaction Status Date / Time No Known Allergies Allergy Verified 03/25/17 06:31 - Medications Medications: Current Medications Acetaminophen (Tylenol 325mg Tab) 650 mg PO Q6 PRN PRN Reason: Fever >100.4 F Home Med (Patient's Own Medication) 1 unit PO DAILY [facility] Last Admin: 03/26/17 09:20 Dose: Not Given Home Med (Patient's Own Medication) 1 unit PO DAILY [facility] Last Admin: 03/26/17 09:20 Dose: Not Given Azithromycin 500 mg/ Sodium (Chloride) 250 mls @ 250 mls/hr IVPB DAILY [facility] Piperacillin Sod/Tazobactam (Sod 3.375 gm/ Sodium Chloride) 100 mls @ 100 mls/ hr IVPB Q6 [facility] Last Admin: 03/26/17 09:31 Dose: 100 mls/hr Levothyroxine Sodium (Synthroid) 25 mcg PO DAILY@0630 [facility] Last Admin: 03/26/17 06:28 Dose: Not Given Metformin HCl (Glucophage) 1,000 mg PO BID [facility] Last Admin: 03/26/17 09:20 Dose: Not Given Pravastatin Sodium (Pravachol) 20 mg PO DAILY [facility] Last Admin: 03/26/17 09:21 Dose: Not Given Sitagliptin Phosphate (Januvia) 100 mg PO DAILY [facility] Last Admin: 03/26/17 09:20 Dose: Not Given Tramadol HCl (Ultram) 50 mg PO Q8 [facility] Last Admin: 03/26/17 09:21 Dose: Not Given Physical Exam - Constitutional Appears: Non-toxic, No Acute Distress - Head Exam Head Exam: ATRAUMATIC, NORMAL INSPECTION, NORMOCEPHALIC - Eye Exam Eye Exam: EOMI, Normal appearance, PERRL - Respiratory Exam Respiratory Exam: Clear to Auscultation Bilateral, NORMAL BREATHING PATTERN - Cardiovascular Exam Cardiovascular Exam: REGULAR RHYTHM - GI/Abdominal Exam GI & Abdominal Exam: Normal Bowel Sounds, Soft. absent: Tenderness - Extremities Exam Extremities exam: Positive for: normal inspection - Neurological Exam Neurological exam: Alert, CN II-XII Intact, Normal Gait, Oriented x3, Reflexes Normal - Psychiatric Exam Psychiatric exam: Normal Affect, Normal Mood Results - Vital Signs Recent Vital Signs: Last Vital Signs Temp 98.2 F 03/26/17 08:33 Pulse 64 03/26/17 08:33 Resp 18 03/26/17 08:33 BP 108/64 03/26/17 08:33 Pulse Ox 97 03/26/17 10:26 - Labs Result Diagrams: 03/25/17 02:40 03/26/17 05:10 Labs: Laboratory Results - last 24 hr 03/25/17 03/25/17 03/26/17 16:19 21:36 05:10 Sodium 139 Potassium 4.6 Chloride 107 Carbon Dioxide 23 Anion Gap 14 BUN 14 Creatinine 1.0 Est GFR ( Amer) > 60 Est GFR (Non-Af Amer) 55 POC Glucose (mg/dL) 120 H 103 Random Glucose 80 Calcium 8.7 Total Bilirubin 1.3 AST 203 H D ALT 160 H Alkaline Phosphatase 105 Total Protein 6.4 Albumin 2.8 L D Globulin 3.6 Albumin/Globulin Ratio 0.8 L 03/26/17 03/26/17 05:28 11:37 Sodium Potassium Chloride Carbon Dioxide Anion Gap BUN Creatinine Est GFR ( Amer) Est GFR (Non-Af Amer) POC Glucose (mg/dL) 86 94 Random Glucose Calcium Total Bilirubin AST ALT Alkaline Phosphatase Total Protein Albumin Globulin Albumin/Globulin Ratio - Imaging and Cardiology CT scan - abdomen Status: Image reviewed by me, Report reviewed by me Assessment & Plan - Assessment and Plan (Free Text) Assessment: 72 yr old F admitted with abnormal LFT in setting of choledocholithiasis. No s/ s of cholangitis. TB normal this morning. Has had CCY in the past. Plan: - ERCP tomorrow afternoon with Dr haile - NPO past midnight - Coag and CBC to be repeated with am labs - NPo past midnight - Can sign her own consent - GI/DVT prophylaxis - Discussed with medical staff - Date & Time Date: 03/26/17 Time: 12:00
[2017-03-26] MEDS: Azithromycin 500 MG in Sodium Chloride 0.9% 250 ML IVPB SCH (13:21)
--- NOTE | 2017-03-26 18:50 | CP.PCM.PN ---
Subjective - Date & Time of Evaluation Date of Evaluation: 03/26/17 Time of Evaluation: 08:00 - Subjective Subjective: 72 yr old F admitted with abnormal LFT in setting of choledocholithiasis Objective - Vital Signs/Intake and Output Vital Signs (last 24 hours): Temp Pulse Resp BP Pulse Ox 98.2 F 74 18 100/56 L 96 03/26/17 16:53 03/26/17 16:53 03/26/17 16:53 03/26/17 16:53 03/26/17 16:53 Intake and Output: 03/26/17 03/26/17 06:59 18:59 Intake Total 1000 1000 Balance 1000 1000 - Medications Medications: Current Medications Acetaminophen (Tylenol 325mg Tab) 650 mg PO Q6 PRN PRN Reason: Fever >100.4 F Home Med (Patient's Own Medication) 1 unit PO DAILY [facility] Last Admin: 03/26/17 09:20 Dose: Not Given Home Med (Patient's Own Medication) 1 unit PO DAILY [facility] Last Admin: 03/26/17 09:20 Dose: Not Given Azithromycin 500 mg/ Sodium (Chloride) 250 mls @ 250 mls/hr IVPB DAILY [facility] Last Admin: 03/26/17 13:21 Dose: 250 mls/hr Piperacillin Sod/Tazobactam (Sod 3.375 gm/ Sodium Chloride) 100 mls @ 100 mls/ hr IVPB Q6 [facility] Last Admin: 03/26/17 16:19 Dose: 100 mls/hr Levothyroxine Sodium (Synthroid) 25 mcg PO DAILY@0630 [facility] Last Admin: 03/26/17 06:28 Dose: Not Given Metformin HCl (Glucophage) 1,000 mg PO BID [facility] Last Admin: 03/26/17 16:20 Dose: 1,000 mg Pravastatin Sodium (Pravachol) 20 mg PO DAILY [facility] Last Admin: 03/26/17 09:21 Dose: Not Given Sitagliptin Phosphate (Januvia) 100 mg PO DAILY [facility] Last Admin: 03/26/17 09:20 Dose: Not Given Tramadol HCl (Ultram) 50 mg PO Q8 [facility] Last Admin: 03/26/17 16:22 Dose: 50 mg - Labs Labs: 03/26/17 12:07 03/26/17 05:10 Assessment and Plan (1) Common bile duct dilation Status: Acute (2) Elevated liver enzymes Status: Acute (3) Pneumonia Status: Acute (4) Sepsis Status: Acute (5) Abdominal pain Status: Acute (6) Dehydration Status: Acute
--- NOTE | 2017-03-26 23:39 | CP.PCM.PN ---
Subjective - Date & Time of Evaluation Date of Evaluation: 03/26/17 Time of Evaluation: 23:00 - Subjective Subjective: Seen and examined at the bed side. Still c/o Abdomnal Pain Objective - Vital Signs/Intake and Output Vital Signs (last 24 hours): Temp Pulse Resp BP Pulse Ox 98.3 F 76 20 97/59 L 99 03/26/17 21:00 03/26/17 21:00 03/26/17 21:00 03/26/17 21:00 03/26/17 21:00 Intake and Output: 03/26/17 03/27/17 18:59 06:59 Intake Total 1000 Balance 1000 - Medications Medications: Current Medications Acetaminophen (Tylenol 325mg Tab) 650 mg PO Q6 PRN PRN Reason: Fever >100.4 F Home Med (Patient's Own Medication) 1 unit PO DAILY [facility] Last Admin: 03/26/17 09:20 Dose: Not Given Home Med (Patient's Own Medication) 1 unit PO DAILY [facility] Last Admin: 03/26/17 09:20 Dose: Not Given Azithromycin 500 mg/ Sodium (Chloride) 250 mls @ 250 mls/hr IVPB DAILY [facility] Last Admin: 03/26/17 13:21 Dose: 250 mls/hr Piperacillin Sod/Tazobactam (Sod 3.375 gm/ Sodium Chloride) 100 mls @ 100 mls/ hr IVPB Q6 [facility] Last Admin: 03/26/17 21:32 Dose: 100 mls/hr Levothyroxine Sodium (Synthroid) 25 mcg PO DAILY@0630 [facility] Last Admin: 03/26/17 06:28 Dose: Not Given Metformin HCl (Glucophage) 1,000 mg PO BID [facility] Last Admin: 03/26/17 16:20 Dose: 1,000 mg Pravastatin Sodium (Pravachol) 20 mg PO DAILY [facility] Last Admin: 03/26/17 09:21 Dose: Not Given Sitagliptin Phosphate (Januvia) 100 mg PO DAILY [facility] Last Admin: 03/26/17 09:20 Dose: Not Given Tramadol HCl (Ultram) 50 mg PO Q8 [facility] Last Admin: 03/26/17 16:22 Dose: 50 mg - Labs Labs: 03/26/17 12:07 03/26/17 05:10 - Constitutional Appears: Well, No Acute Distress - Head Exam Head Exam: ATRAUMATIC, NORMAL INSPECTION, NORMOCEPHALIC - Eye Exam Eye Exam: EOMI, Normal appearance, PERRL Pupil Exam: NORMAL ACCOMODATION, PERRL - ENT Exam ENT Exam: Mucous Membranes Moist, Normal Exam - Neck Exam Neck Exam: Full ROM, Normal Inspection. absent: Lymphadenopathy - Respiratory Exam Respiratory Exam: Clear to Ausculation Bilateral, NORMAL BREATHING PATTERN - Cardiovascular Exam Cardiovascular Exam: REGULAR RHYTHM, +S1, +S2. absent: Murmur - GI/Abdominal Exam GI & Abdominal Exam: Guarding, Tenderness, Normal Bowel Sounds. absent: Rigid - Extremities Exam Extremities Exam: Full ROM, Normal Capillary Refill, Normal Inspection. absent : Joint Swelling, Pedal Edema - Back Exam Back Exam: NORMAL INSPECTION - Neurological Exam Neurological Exam: Alert, Awake, CN II-XII Intact, Normal Gait, Oriented x3 - Psychiatric Exam Psychiatric exam: Normal Affect, Normal Mood - Skin Skin Exam: Dry, Intact, Normal Color, Warm Assessment and Plan (1) Sepsis Assessment & Plan: Leukocytosis- Improved Abdominal Pain and CBD Dilation with Possible Choledocholithiasis with Possible Ascending Choleangitis Vs Pneumonia IVF IV Zosyn and Azithromycin Pain Medication PRN Blood Cultures Repeat CBC with diff ID, Surgery and GI Consult Status: Acute (2) Diabetes mellitus Assessment and Plan: Accucheck witth LOw Coverage HGA1C Status: Chronic (3) HIV (human immunodeficiency virus infection) Assessment and Plan: Continue HAART T Lymphocyte Panel and Viral Load Status: Acute
[2017-03-27] MEDS: Piperacillin/Tazobact 3.375 GM in Sodium Chloride 0.9% 100 ML IVPB SCH ×5 (03:26→22:54)
[2017-03-27] MEDS: Levothyroxine 25 MCG TAB PO SCH (06:54)
--- NOTE | 2017-03-27 07:33 | CP.PCM.PN ---
<OsmaniDeborah - Last Filed: 03/27/17 07:31> Subjective - Date & Time of Evaluation Date of Evaluation: 03/27/17 Time of Evaluation: 07:31 - Subjective Subjective: General Surgery - Dr. read Pt S&E. OZZIE. PT denies any abdominal pain. She tolerated liquid diet yesterday and had a BM this morning. She is currently NPO for ERCP today. No F /C, N/V, SOB/Cp Objective - Vital Signs/Intake and Output Vital Signs (last 24 hours): Temp Pulse Resp BP Pulse Ox 98.2 F 61 20 112/67 96 03/27/17 05:32 03/27/17 05:32 03/27/17 05:32 03/27/17 05:32 03/27/17 05:32 - Medications Medications: Current Medications Acetaminophen (Tylenol 325mg Tab) 650 mg PO Q6 PRN PRN Reason: Fever >100.4 F Home Med (Patient's Own Medication) 1 unit PO DAILY [facility] Last Admin: 03/26/17 09:20 Dose: Not Given Home Med (Patient's Own Medication) 1 unit PO DAILY [facility] Last Admin: 03/26/17 09:20 Dose: Not Given Azithromycin 500 mg/ Sodium (Chloride) 250 mls @ 250 mls/hr IVPB DAILY [facility] Last Admin: 03/26/17 13:21 Dose: 250 mls/hr Piperacillin Sod/Tazobactam (Sod 3.375 gm/ Sodium Chloride) 100 mls @ 100 mls/ hr IVPB Q6 [facility] Last Admin: 03/27/17 03:26 Dose: 100 mls/hr Levothyroxine Sodium (Synthroid) 25 mcg PO DAILY@0630 [facility] Last Admin: 03/27/17 06:54 Dose: Not Given Metformin HCl (Glucophage) 1,000 mg PO BID [facility] Last Admin: 03/26/17 16:20 Dose: 1,000 mg Pravastatin Sodium (Pravachol) 20 mg PO DAILY [facility] Last Admin: 03/26/17 09:21 Dose: Not Given Sitagliptin Phosphate (Januvia) 100 mg PO DAILY [facility] Last Admin: 03/26/17 09:20 Dose: Not Given Tramadol HCl (Ultram) 50 mg PO Q8 [facility] Last Admin: 03/27/17 02:16 Dose: Not Given - Labs Labs: 03/26/17 12:07 03/26/17 05:10 - Constitutional Appears: No Acute Distress - Head Exam Head Exam: ATRAUMATIC, NORMAL INSPECTION, NORMOCEPHALIC - Eye Exam Eye Exam: Normal appearance - Respiratory Exam Respiratory Exam: NORMAL BREATHING PATTERN. absent: Respiratory Distress - GI/Abdominal Exam GI & Abdominal Exam: Soft. absent: Firm, Guarding, Rigid, Tenderness, Rebound - Neurological Exam Neurological Exam: Alert, Oriented x3 - Psychiatric Exam Psychiatric exam: Normal Affect, Normal Mood - Skin Skin Exam: Dry, Intact Assessment and Plan - Assessment and Plan (Free Text) Assessment: 72F with prior Hx cholecystectomy w/ poss. choledocholithiasis Plan: -F/U ERCP today -F/U LFTs -No surgical plans at this time D/W Dr. Matteo Keen PGY2 <Gigi Read - Last Filed: 03/27/17 10:29> Subjective - Date & Time of Evaluation Time of Evaluation: 09:45 - Subjective Subjective: Patient was seen and examined at the bedside. Agree with resident's note above Objective - Vital Signs/Intake and Output Vital Signs (last 24 hours): Temp Pulse Resp BP Pulse Ox 98.4 F 55 L 18 108/66 96 03/27/17 08:00 03/27/17 08:00 03/27/17 08:00 03/27/17 08:00 03/27/17 08:00 - Medications Medications: Current Medications Acetaminophen (Tylenol 325mg Tab) 650 mg PO Q6 PRN PRN Reason: Fever >100.4 F Home Med (Patient's Own Medication) 1 unit PO DAILY [facility] Last Admin: 03/27/17 09:48 Dose: Not Given Home Med (Patient's Own Medication) 1 unit PO DAILY [facility] Last Admin: 03/27/17 09:48 Dose: Not Given Azithromycin 500 mg/ Sodium (Chloride) 250 mls @ 250 mls/hr IVPB DAILY [facility] Last Admin: 03/27/17 09:49 Dose: 250 mls/hr Piperacillin Sod/Tazobactam (Sod 3.375 gm/ Sodium Chloride) 100 mls @ 100 mls/ hr IVPB Q6 [facility] Last Admin: 03/27/17 09:49 Dose: 100 mls/hr Dextrose/Sodium Chloride (Dextrose 5%-0.45% Ns 500 Ml) 500 mls @ 50 mls/hr IV .Q10H [facility] Stop: 03/28/17 08:14 Last Admin: 03/27/17 09:46 Dose: 50 mls/hr Levothyroxine Sodium (Synthroid) 25 mcg PO DAILY@0630 [facility] Last Admin: 03/27/17 06:54 Dose: Not Given Metformin HCl (Glucophage) 1,000 mg PO BID [facility] Last Admin: 03/27/17 09:47 Dose: Not Given Pravastatin Sodium (Pravachol) 20 mg PO DAILY [facility] Last Admin: 03/26/17 09:21 Dose: Not Given Sitagliptin Phosphate (Januvia) 100 mg PO DAILY [facility] Last Admin: 03/27/17 09:48 Dose: Not Given Tramadol HCl (Ultram) 50 mg PO Q8 [facility] Last Admin: 03/27/17 09:48 Dose: Not Given - Labs Labs: 03/27/17 08:45 03/27/17 08:45 PT 10.4 SECONDS (9.6-11.2) 03/27/17 08:45 INR 1.00 (0.92-1.08) 03/27/17 08:45
[2017-03-27 09:31] LABS: HEMATOCRIT 28.3 % (34.0-47.0); MEAN CELL VOLUME 86.1 fl (81.0-99.0); MEAN CORPUSCULAR HGB CONC 34.8 g/dL (33.0-37.0); RED CELL DISTRIBUTION WIDTH 19.8 % (11.5-14.5)
[2017-03-27 09:47] LABS: BLOOD UREA NITROGEN 8 mg/dl (7-17); CARBON DIOXIDE 23 mmol/L (22-30); CHLORIDE 109 mmol/L (98-107); GFR AFRICAN-AMERICAN > 60; GLUCOSE,RANDOM 85 mg/dL (65-105); SODIUM 137 mmol/l (132-148)
[2017-03-27] MEDS: DESCOVY PO SCH ×2 (09:48→17:52)
[2017-03-27] MEDS: DOLUTEGRAVIR SODIUM 50 MG PO SCH ×2 (09:48→17:52)
[2017-03-27] MEDS ORDERED: Iohexol 240 (50 ml) ONE (09:49)
[2017-03-27] MEDS: Azithromycin 500 MG in Sodium Chloride 0.9% 250 ML IVPB SCH (09:49)
[2017-03-27] MEDS ORDERED: Sodium Chloride 0.9% 500 ML IV ONE (10:52)
[2017-03-27] MEDS ORDERED: Midazolam 2 MG/2 ML VIAL ONE (11:13)
[2017-03-27] MEDS ORDERED: Succinylcholine 200 mg/10 ml Inj IV ONE (11:14)
[2017-03-27] MEDS ORDERED: Propofol 10 mg/ml Inj (20 ML) ONE (11:14)
[2017-03-27] MEDS ORDERED: Indomethacin 50 MG Suppository PR ONE (11:30)
--- NOTE | 2017-03-27 13:51 | CP.PCM.PN ---
Subjective - Date & Time of Evaluation Date of Evaluation: 03/27/17 Time of Evaluation: 08:00 - Subjective Subjective: cultures reviewed for ERCP cont rx Objective - Vital Signs/Intake and Output Vital Signs (last 24 hours): Temp Pulse Resp BP Pulse Ox 97.2 F L 53 L 14 151/70 H 96 03/27/17 12:35 03/27/17 12:35 03/27/17 12:35 03/27/17 12:35 03/27/17 12:35 Intake and Output: 03/27/17 03/27/17 06:59 18:59 Intake Total 300 Balance 300 - Medications Medications: Current Medications Acetaminophen (Tylenol 325mg Tab) 650 mg PO Q6 PRN PRN Reason: Fever >100.4 F Home Med (Patient's Own Medication) 1 unit PO DAILY [facility] Last Admin: 03/27/17 09:48 Dose: Not Given Home Med (Patient's Own Medication) 1 unit PO DAILY [facility] Last Admin: 03/27/17 09:48 Dose: Not Given Azithromycin 500 mg/ Sodium (Chloride) 250 mls @ 250 mls/hr IVPB DAILY [facility] Last Admin: 03/27/17 09:49 Dose: 250 mls/hr Piperacillin Sod/Tazobactam (Sod 3.375 gm/ Sodium Chloride) 100 mls @ 100 mls/ hr IVPB Q6 [facility] Last Admin: 03/27/17 09:49 Dose: 100 mls/hr Dextrose/Sodium Chloride (Dextrose 5%-0.45% Ns 500 Ml) 500 mls @ 50 mls/hr IV .Q10H [facility] Stop: 03/28/17 08:14 Last Admin: 03/27/17 09:46 Dose: 50 mls/hr Levothyroxine Sodium (Synthroid) 25 mcg PO DAILY@0630 [facility] Last Admin: 03/27/17 06:54 Dose: Not Given Metformin HCl (Glucophage) 1,000 mg PO BID [facility] Last Admin: 03/27/17 09:47 Dose: Not Given Pravastatin Sodium (Pravachol) 20 mg PO DAILY [facility] Last Admin: 03/26/17 09:21 Dose: Not Given Sitagliptin Phosphate (Januvia) 100 mg PO DAILY [facility] Last Admin: 03/27/17 09:48 Dose: Not Given Tramadol HCl (Ultram) 50 mg PO Q8 [facility] Last Admin: 03/27/17 09:48 Dose: Not Given - Labs Labs: 03/27/17 08:45 03/27/17 08:45 PT 10.4 SECONDS (9.6-11.2) 03/27/17 08:45 INR 1.00 (0.92-1.08) 03/27/17 08:45 - Constitutional Appears: Non-toxic, Cachectic, Chronically Ill - Head Exam Head Exam: NORMOCEPHALIC - Eye Exam Eye Exam: PERRL. absent: Scleral icterus - ENT Exam ENT Exam: Mucous Membranes Dry - Neck Exam Neck Exam: absent: Lymphadenopathy - Respiratory Exam Respiratory Exam: Decreased Breath Sounds, Rhonchi - Cardiovascular Exam Cardiovascular Exam: REGULAR RHYTHM, +S1, +S2 - GI/Abdominal Exam GI & Abdominal Exam: Distended, Soft. absent: Tenderness - Rectal Exam Rectal Exam: Deferred - Exam Exam: NORMAL INSPECTION - Extremities Exam Extremities Exam: absent: Calf Tenderness, Pedal Edema - Back Exam Back Exam: absent: CVA tenderness (L), CVA tenderness (R) - Neurological Exam Neurological Exam: Alert, Awake, Oriented x3 Assessment and Plan (1) Common bile duct dilation Status: Acute (2) Elevated liver enzymes Status: Acute (3) Pneumonia Status: Acute (4) Sepsis Status: Acute (5) Abdominal pain Status: Acute (6) Dehydration Status: Acute
[2017-03-28] MEDS: Piperacillin/Tazobact 3.375 GM in Sodium Chloride 0.9% 100 ML IVPB SCH ×4 (04:52→21:33)
[2017-03-28] MEDS: Levothyroxine 25 MCG TAB PO SCH (06:35)
[2017-03-28 07:20] LABS: ALB/GLOB RATIO 0.9 (1.0-2.1); ALKALINE PHOSPHATASE 127 U/L (38-126); ALT/SGPT 111 U/L (9-52); AST/SGOT 77 U/L (14-36); BILIRUBIN,TOTAL 0.9 mg/dl (0.2-1.3); BLOOD UREA NITROGEN 6 mg/dl (7-17); CALCIUM 9.3 mg/dL (8.4-10.2); CARBON DIOXIDE 21 mmol/L (22-30); CHLORIDE 108 mmol/L (98-107); GFR AFRICAN-AMERICAN > 60; GLUCOSE,RANDOM 86 mg/dL (65-105); POTASSIUM 3.4 MMOL/L (3.6-5.0); SODIUM 138 mmol/l (132-148); TOTAL PROTEIN 6.9 G/DL (6.3-8.2)
[2017-03-28 07:29] LABS: BASO # 0.3 K/uL (0.0-0.2); BASO % 4.6 % (0.0-2.0); EOS # 0.3 K/uL (0.0-0.7); EOS % 4.4 % (0.0-4.0); HEMATOCRIT 29.6 % (34.0-47.0); LYMPH # 0.5 K/uL (1.0-4.3); LYMPH % 7.6 % (20.0-40.0); MEAN CELL VOLUME 85.6 fl (81.0-99.0); MEAN CORPUSCULAR HEMOGLOBIN 30.2 pg (27.0-31.0); MEAN CORPUSCULAR HGB CONC 35.2 g/dL (33.0-37.0); MEAN PLATELET VOLUME 8.5 fl (7.2-11.7); MONO # 0.6 K/uL (0.0-0.8); MONO % 10.1 % (0.0-10.0); NEUT # 4.5 K/uL (1.8-7.0); NEUT % 73.3 % (50.0-75.0); NRBC % 0.2 % (0.0-0.0); PLATELET COUNT 235 K/uL (130-400); WHITE BLOOD COUNT 6.1 K/uL (4.8-10.8)
[2017-03-28] MEDS: DESCOVY PO SCH (09:19)
[2017-03-28] MEDS: DOLUTEGRAVIR SODIUM 50 MG PO SCH (09:19)
[2017-03-28] MEDS: Azithromycin 500 MG in Sodium Chloride 0.9% 250 ML IVPB SCH (09:22)
--- NOTE | 2017-03-28 09:42 | CP.PCM.PN ---
Subjective - Date & Time of Evaluation Date of Evaluation: 03/28/17 Time of Evaluation: 09:37 - Subjective Subjective: Patient seen and examined in AM. She is s/p ERCP with sphincterotomy and stone removal yesterday. No new complaint today. She is tolerating liquids. No nausea or vomiting. No fever. Reportedly had green BM yesterday. ROS otherwise negative in detail Objective - Vital Signs/Intake and Output Vital Signs (last 24 hours): Temp Pulse Resp BP Pulse Ox 98.1 F 63 18 143/69 97 03/28/17 07:58 03/28/17 07:58 03/28/17 07:58 03/28/17 07:58 03/28/17 07:58 - Medications Medications: Current Medications Acetaminophen (Tylenol 325mg Tab) 650 mg PO Q6 PRN PRN Reason: Fever >100.4 F Home Med (Patient's Own Medication) 1 unit PO DAILY [facility] Last Admin: 03/28/17 09:19 Dose: 1 unit Home Med (Patient's Own Medication) 1 unit PO DAILY [facility] Last Admin: 03/28/17 09:19 Dose: 1 unit Azithromycin 500 mg/ Sodium (Chloride) 250 mls @ 250 mls/hr IVPB DAILY [facility] Last Admin: 03/28/17 09:22 Dose: 250 mls/hr Piperacillin Sod/Tazobactam (Sod 3.375 gm/ Sodium Chloride) 100 mls @ 100 mls/ hr IVPB Q6 [facility] Last Admin: 03/28/17 09:20 Dose: 100 mls/hr Levothyroxine Sodium (Synthroid) 25 mcg PO DAILY@0630 [facility] Last Admin: 03/28/17 06:35 Dose: 25 mcg Metformin HCl (Glucophage) 1,000 mg PO BID [facility] Last Admin: 03/28/17 09:19 Dose: 1,000 mg Pravastatin Sodium (Pravachol) 20 mg PO DAILY [facility] Last Admin: 03/26/17 09:21 Dose: Not Given Sitagliptin Phosphate (Januvia) 100 mg PO DAILY [facility] Last Admin: 03/28/17 09:19 Dose: 100 mg Tramadol HCl (Ultram) 50 mg PO Q6 PRN PRN Reason: Pain, moderate (4-7) - Labs Labs: 03/28/17 05:00 03/28/17 05:00 PT 10.4 SECONDS (9.6-11.2) 03/27/17 08:45 INR 1.00 (0.92-1.08) 03/27/17 08:45 - Constitutional Appears: No Acute Distress - Eye Exam Eye Exam: absent: Scleral icterus - ENT Exam ENT Exam: Mucous Membranes Moist - Respiratory Exam Respiratory Exam: Clear to Ausculation Bilateral - Cardiovascular Exam Cardiovascular Exam: +S1, +S2 - GI/Abdominal Exam Additional comments: abdomen soft, non tender to palpation, no rebound or guarding, bowel sounds present - Extremities Exam Extremities Exam: absent: Pedal Edema - Neurological Exam Neurological Exam: Alert, Oriented x3 - Skin Skin Exam: Dry Assessment and Plan - Assessment and Plan (Free Text) Assessment: This is a 72 yr old F with PMHx of HIV, HTN, s/p cholecystectomy who is admitted with abdominal pain, nausea/vomiting with abnormal LFTs secondary to choledocholithiasis s/p ERCP with stone removal. Her symptoms are improved and LFTs are downtrending. Plan: Continue supportive care Monitor LFTs, currently downtrending Pain control/antiemetic therapy as needed Advance diet as tolerated Please call with any further questions/concerns
--- NOTE | 2017-03-28 11:44 | CP.PCM.PN ---
<James Mandujano - Last Filed: 03/28/17 11:42> Subjective - Date & Time of Evaluation Date of Evaluation: 03/28/17 Time of Evaluation: 10:30 - Subjective Subjective: General Surgery Pt S&E, YELITZAEO. Denies abd pain. tolerating CLD. Had BM yesterday. No other C/O. Objective - Vital Signs/Intake and Output Vital Signs (last 24 hours): Temp Pulse Resp BP Pulse Ox 98.1 F 63 18 143/69 97 03/28/17 07:58 03/28/17 07:58 03/28/17 07:58 03/28/17 07:58 03/28/17 07:58 - Medications Medications: Current Medications Acetaminophen (Tylenol 325mg Tab) 650 mg PO Q6 PRN PRN Reason: Fever >100.4 F Home Med (Patient's Own Medication) 1 unit PO DAILY [facility] Last Admin: 03/28/17 09:19 Dose: 1 unit Home Med (Patient's Own Medication) 1 unit PO DAILY [facility] Last Admin: 03/28/17 09:19 Dose: 1 unit Azithromycin 500 mg/ Sodium (Chloride) 250 mls @ 250 mls/hr IVPB DAILY [facility] Last Admin: 03/28/17 09:22 Dose: 250 mls/hr Piperacillin Sod/Tazobactam (Sod 3.375 gm/ Sodium Chloride) 100 mls @ 100 mls/ hr IVPB Q6 [facility] Last Admin: 03/28/17 09:20 Dose: 100 mls/hr Levothyroxine Sodium (Synthroid) 25 mcg PO DAILY@0630 [facility] Last Admin: 03/28/17 06:35 Dose: 25 mcg Metformin HCl (Glucophage) 1,000 mg PO BID [facility] Last Admin: 03/28/17 09:19 Dose: 1,000 mg Pravastatin Sodium (Pravachol) 20 mg PO DAILY [facility] Last Admin: 03/26/17 09:21 Dose: Not Given Sitagliptin Phosphate (Januvia) 100 mg PO DAILY [facility] Last Admin: 03/28/17 09:19 Dose: 100 mg Tramadol HCl (Ultram) 50 mg PO Q6 PRN PRN Reason: Pain, moderate (4-7) - Labs Labs: 03/28/17 05:00 03/28/17 05:00 PT 10.4 SECONDS (9.6-11.2) 03/27/17 08:45 INR 1.00 (0.92-1.08) 03/27/17 08:45 - Constitutional Appears: Non-toxic, No Acute Distress - Head Exam Head Exam: ATRAUMATIC, NORMOCEPHALIC - Eye Exam Eye Exam: EOMI. absent: Scleral icterus - Respiratory Exam Respiratory Exam: NORMAL BREATHING PATTERN. absent: Respiratory Distress - GI/Abdominal Exam GI & Abdominal Exam: Soft. absent: Distended, Guarding, Tenderness - Neurological Exam Neurological Exam: Alert, Awake - Skin Skin Exam: Dry, Warm Assessment and Plan - Assessment and Plan (Free Text) Assessment: 72F with prior Hx cholecystectomy w/ choledocholithiasis s/p ERCP with stone extraction Plan: No surgical intervention at this time. Monitor for diet tolerance. D/W Dr. Matteo Mandujano PGY3 <Gigi Felipe - Last Filed: 03/28/17 14:10> Subjective - Date & Time of Evaluation Time of Evaluation: 13:15 - Subjective Subjective: Patient was seen and examined at the bedside. Agree with resident's note above Objective - Vital Signs/Intake and Output Vital Signs (last 24 hours): Temp Pulse Resp BP Pulse Ox 98.2 F 58 L 18 134/68 97 03/28/17 13:00 03/28/17 13:00 03/28/17 13:00 03/28/17 13:00 03/28/17 13:00 - Medications Medications: Current Medications Acetaminophen (Tylenol 325mg Tab) 650 mg PO Q6 PRN PRN Reason: Fever >100.4 F Home Med (Patient's Own Medication) 1 unit PO DAILY [facility] Last Admin: 03/28/17 09:19 Dose: 1 unit Home Med (Patient's Own Medication) 1 unit PO DAILY [facility] Last Admin: 03/28/17 09:19 Dose: 1 unit Azithromycin 500 mg/ Sodium (Chloride) 250 mls @ 250 mls/hr IVPB DAILY [facility] Last Admin: 03/28/17 09:22 Dose: 250 mls/hr Piperacillin Sod/Tazobactam (Sod 3.375 gm/ Sodium Chloride) 100 mls @ 100 mls/ hr IVPB Q6 [facility] Last Admin: 03/28/17 09:20 Dose: 100 mls/hr Levothyroxine Sodium (Synthroid) 25 mcg PO DAILY@0630 [facility] Last Admin: 03/28/17 06:35 Dose: 25 mcg Metformin HCl (Glucophage) 1,000 mg PO BID [facility] Last Admin: 03/28/17 09:19 Dose: 1,000 mg Pravastatin Sodium (Pravachol) 20 mg PO DAILY [facility] Last Admin: 03/26/17 09:21 Dose: Not Given Sitagliptin Phosphate (Januvia) 100 mg PO DAILY [facility] Last Admin: 03/28/17 09:19 Dose: 100 mg Tramadol HCl (Ultram) 50 mg PO Q6 PRN PRN Reason: Pain, moderate (4-7) - Labs Labs: 03/28/17 05:00 03/28/17 05:00 PT 10.4 SECONDS (9.6-11.2) 03/27/17 08:45 INR 1.00 (0.92-1.08) 03/27/17 08:45 Assessment and Plan - Assessment and Plan (Free Text) Plan: - Continue regular diet - Pain control - Repeat labs in am - Continue antibiotics - No general surgery intervention at present time - Surgery will sign off - Please re-consult as needed
[2017-03-28 11:55] LABS: BASOPHIL 1 % (0-2); EOSINOPHIL 2 % (0-7); NEUTROPHIL 76 % (42-75); REACTIVE LYMPHOCYTES 2 % (0-0); TOTAL CELLS COUNTED 100
[2017-03-28 11:59] LABS: LARGE PLATELETS PRESENT
--- NOTE | 2017-03-28 17:27 | CP.PCM.PN ---
Subjective - Date & Time of Evaluation Date of Evaluation: 03/28/17 Time of Evaluation: 16:50 - Subjective Subjective: Seen and examined at the bed side. s/p ERCP with sphincterotomy and stone removal yesterday. No new complaint today. She is tolerating liquids. No nausea or vomiting. No fever or chills. Objective - Vital Signs/Intake and Output Vital Signs (last 24 hours): Temp Pulse Resp BP Pulse Ox 98.2 F 58 L 18 134/68 97 03/28/17 17:00 03/28/17 17:00 03/28/17 17:00 03/28/17 17:00 03/28/17 17:00 - Medications Medications: Current Medications Acetaminophen (Tylenol 325mg Tab) 650 mg PO Q6 PRN PRN Reason: Fever >100.4 F Home Med (Patient's Own Medication) 1 unit PO DAILY [facility] Last Admin: 03/28/17 09:19 Dose: 1 unit Home Med (Patient's Own Medication) 1 unit PO DAILY [facility] Last Admin: 03/28/17 09:19 Dose: 1 unit Azithromycin 500 mg/ Sodium (Chloride) 250 mls @ 250 mls/hr IVPB DAILY [facility] Last Admin: 03/28/17 09:22 Dose: 250 mls/hr Piperacillin Sod/Tazobactam (Sod 3.375 gm/ Sodium Chloride) 100 mls @ 100 mls/ hr IVPB Q6 [facility] Last Admin: 03/28/17 17:04 Dose: 100 mls/hr Levothyroxine Sodium (Synthroid) 25 mcg PO DAILY@0630 [facility] Last Admin: 03/28/17 06:35 Dose: 25 mcg Metformin HCl (Glucophage) 1,000 mg PO BID [facility] Last Admin: 03/28/17 17:05 Dose: 1,000 mg Pravastatin Sodium (Pravachol) 20 mg PO DAILY [facility] Last Admin: 03/26/17 09:21 Dose: Not Given Sitagliptin Phosphate (Januvia) 100 mg PO DAILY [facility] Last Admin: 03/28/17 09:19 Dose: 100 mg Tramadol HCl (Ultram) 50 mg PO Q6 PRN PRN Reason: Pain, moderate (4-7) - Labs Labs: 03/28/17 05:00 03/28/17 05:00 PT 10.4 SECONDS (9.6-11.2) 03/27/17 08:45 INR 1.00 (0.92-1.08) 03/27/17 08:45 - Constitutional Appears: Well - Head Exam Head Exam: ATRAUMATIC, NORMAL INSPECTION, NORMOCEPHALIC - Eye Exam Eye Exam: EOMI, Normal appearance, PERRL Pupil Exam: NORMAL ACCOMODATION, PERRL - ENT Exam ENT Exam: Mucous Membranes Moist, Normal Exam - Neck Exam Neck Exam: Full ROM, Normal Inspection. absent: Lymphadenopathy - Respiratory Exam Respiratory Exam: Clear to Ausculation Bilateral, NORMAL BREATHING PATTERN - Cardiovascular Exam Cardiovascular Exam: REGULAR RHYTHM, +S1, +S2. absent: Murmur - GI/Abdominal Exam GI & Abdominal Exam: Soft, Normal Bowel Sounds. absent: Tenderness - Extremities Exam Extremities Exam: Full ROM, Normal Capillary Refill, Normal Inspection. absent : Joint Swelling, Pedal Edema - Back Exam Back Exam: NORMAL INSPECTION - Neurological Exam Neurological Exam: Alert, Awake, CN II-XII Intact, Normal Gait, Oriented x3 - Psychiatric Exam Psychiatric exam: Normal Affect, Normal Mood - Skin Skin Exam: Dry, Intact, Normal Color, Warm Assessment and Plan (1) Sepsis Assessment & Plan: IMproving Choledocholithiasis with Possible Ascending Choleangitis S/P Sphincterctomy and Stone Removal Vs Pneumonia- Improved IVF IV Zosyn and Azithromycin Pain Medication PRN ID, Surgery and GI Consultants on Board Status: Acute (2) Diabetes mellitus Assessment and Plan: Acctelma fitzpatrick LOw Coverage Status: Chronic (3) HIV (human immunodeficiency virus infection) Assessment and Plan: Continue HAART T Lymphocyte Panel and Viral Load Status: Acute
[2017-03-29] MEDS: Piperacillin/Tazobact 3.375 GM in Sodium Chloride 0.9% 100 ML IVPB SCH ×4 (04:10→21:19)
[2017-03-29] MEDS: Levothyroxine 25 MCG TAB PO SCH (06:28)
[2017-03-29] MEDS: Azithromycin 500 MG in Sodium Chloride 0.9% 250 ML IVPB SCH (09:06)
[2017-03-29] MEDS: DOLUTEGRAVIR SODIUM 50 MG PO SCH (09:07)
[2017-03-29] MEDS: DESCOVY PO SCH (09:07)
--- NOTE | 2017-03-29 14:05 | CP.PCM.PN ---
Subjective - Date & Time of Evaluation Date of Evaluation: 03/29/17 Time of Evaluation: 07:00 - Subjective Subjective: no chest pain \ abd pain less Objective - Vital Signs/Intake and Output Vital Signs (last 24 hours): Temp Pulse Resp BP Pulse Ox 98.3 F 69 18 170/76 H 99 03/29/17 11:59 03/29/17 11:59 03/29/17 11:59 03/29/17 11:59 03/29/17 11:59 - Medications Medications: Current Medications Acetaminophen (Tylenol 325mg Tab) 650 mg PO Q6 PRN PRN Reason: Fever >100.4 F Home Med (Patient's Own Medication) 1 unit PO DAILY [facility] Last Admin: 03/29/17 09:07 Dose: 1 unit Home Med (Patient's Own Medication) 1 unit PO DAILY [facility] Last Admin: 03/29/17 09:07 Dose: 1 unit Azithromycin 500 mg/ Sodium (Chloride) 250 mls @ 250 mls/hr IVPB DAILY [facility] Last Admin: 03/29/17 09:06 Dose: 250 mls/hr Piperacillin Sod/Tazobactam (Sod 3.375 gm/ Sodium Chloride) 100 mls @ 100 mls/ hr IVPB Q6 [facility] Last Admin: 03/29/17 09:06 Dose: 100 mls/hr Levothyroxine Sodium (Synthroid) 25 mcg PO DAILY@0630 [facility] Last Admin: 03/29/17 06:28 Dose: 25 mcg Metformin HCl (Glucophage) 1,000 mg PO BID [facility] Last Admin: 03/29/17 09:07 Dose: 1,000 mg Pravastatin Sodium (Pravachol) 20 mg PO DAILY [facility] Last Admin: 03/26/17 09:21 Dose: Not Given Sitagliptin Phosphate (Januvia) 100 mg PO DAILY [facility] Last Admin: 03/29/17 09:07 Dose: 100 mg Tramadol HCl (Ultram) 50 mg PO Q6 PRN PRN Reason: Pain, moderate (4-7) - Labs Labs: 03/28/17 05:00 03/28/17 05:00 PT 10.4 SECONDS (9.6-11.2) 03/27/17 08:45 INR 1.00 (0.92-1.08) 03/27/17 08:45 - Constitutional Appears: Non-toxic, Chronically Ill - Head Exam Head Exam: NORMOCEPHALIC - Eye Exam Eye Exam: PERRL. absent: Scleral icterus - ENT Exam ENT Exam: Mucous Membranes Dry - Neck Exam Neck Exam: absent: Lymphadenopathy - Respiratory Exam Respiratory Exam: Decreased Breath Sounds, Rhonchi - Cardiovascular Exam Cardiovascular Exam: REGULAR RHYTHM, +S1, +S2 - GI/Abdominal Exam GI & Abdominal Exam: Distended, Soft. absent: Tenderness - Rectal Exam Rectal Exam: Deferred - Back Exam Back Exam: absent: CVA tenderness (L), CVA tenderness (R) - Psychiatric Exam Psychiatric exam: Depressed - Skin Skin Exam: Dry Assessment and Plan (1) Common bile duct dilation Status: Acute (2) Elevated liver enzymes Status: Acute (3) Pneumonia Status: Acute (4) Sepsis Status: Acute (5) Abdominal pain Status: Acute (6) Dehydration Status: Acute - Assessment and Plan (Free Text) Assessment: will re-order HAART rx
--- NOTE | 2017-03-29 18:41 | CP.PCM.PN ---
Subjective - Date & Time of Evaluation Date of Evaluation: 03/29/17 Time of Evaluation: 15:35 - Subjective Subjective: seen and examined at the bed side.Sates feeling better. Advance diet, and will resume all her medication. Objective - Vital Signs/Intake and Output Vital Signs (last 24 hours): Temp Pulse Resp BP Pulse Ox 98.8 F 96 H 18 152/82 H 96 03/29/17 17:00 03/29/17 17:00 03/29/17 17:00 03/29/17 17:00 03/29/17 17:00 - Medications Medications: Current Medications Acetaminophen (Tylenol 325mg Tab) 650 mg PO Q6 PRN PRN Reason: Fever >100.4 F Home Med (Patient's Own Medication) 1 unit PO DAILY [facility] Last Admin: 03/29/17 09:07 Dose: 1 unit Home Med (Patient's Own Medication) 1 unit PO DAILY [facility] Last Admin: 03/29/17 09:07 Dose: 1 unit Azithromycin 500 mg/ Sodium (Chloride) 250 mls @ 250 mls/hr IVPB DAILY [facility] Last Admin: 03/29/17 09:06 Dose: 250 mls/hr Piperacillin Sod/Tazobactam (Sod 3.375 gm/ Sodium Chloride) 100 mls @ 100 mls/ hr IVPB Q6 [facility] Last Admin: 03/29/17 17:14 Dose: 100 mls/hr Levothyroxine Sodium (Synthroid) 25 mcg PO DAILY@0630 [facility] Last Admin: 03/29/17 06:28 Dose: 25 mcg Metformin HCl (Glucophage) 1,000 mg PO BID [facility] Last Admin: 03/29/17 17:13 Dose: 1,000 mg Pravastatin Sodium (Pravachol) 20 mg PO DAILY [facility] Last Admin: 03/26/17 09:21 Dose: Not Given Sitagliptin Phosphate (Januvia) 100 mg PO DAILY [facility] Last Admin: 03/29/17 09:07 Dose: 100 mg Tramadol HCl (Ultram) 50 mg PO Q6 PRN PRN Reason: Pain, moderate (4-7) - Labs Labs: 03/28/17 05:00 03/28/17 05:00 PT 10.4 SECONDS (9.6-11.2) 03/27/17 08:45 INR 1.00 (0.92-1.08) 03/27/17 08:45 - Constitutional Appears: Well - Head Exam Head Exam: ATRAUMATIC, NORMAL INSPECTION, NORMOCEPHALIC - Eye Exam Eye Exam: EOMI, Normal appearance, PERRL Pupil Exam: NORMAL ACCOMODATION, PERRL - ENT Exam ENT Exam: Mucous Membranes Moist, Normal Exam - Neck Exam Neck Exam: Full ROM, Normal Inspection. absent: Lymphadenopathy - Respiratory Exam Respiratory Exam: Clear to Ausculation Bilateral, NORMAL BREATHING PATTERN - Cardiovascular Exam Cardiovascular Exam: REGULAR RHYTHM, +S1, +S2. absent: Murmur - GI/Abdominal Exam GI & Abdominal Exam: Soft, Normal Bowel Sounds. absent: Tenderness - Extremities Exam Extremities Exam: Full ROM, Normal Capillary Refill, Normal Inspection. absent : Joint Swelling, Pedal Edema - Back Exam Back Exam: NORMAL INSPECTION - Neurological Exam Neurological Exam: Alert, Awake, CN II-XII Intact, Normal Gait, Oriented x3 - Psychiatric Exam Psychiatric exam: Normal Affect, Normal Mood - Skin Skin Exam: Dry, Intact, Normal Color, Warm Assessment and Plan (1) Sepsis Assessment & Plan: IMproving Choledocholithiasis with Possible Ascending Choleangitis S/P Sphincterctomy and Stone Removal Vs Pneumonia- Improved IVF IV Zosyn and Azithromycin Pain Medication PRN ID, Surgery and GI Consultants on Board Status: Acute (2) Diabetes mellitus Assessment and Plan: Delisa fitzpatrick LOw Coverage Status: Chronic (3) HIV (human immunodeficiency virus infection) Assessment and Plan: Continue HAART Status: Acute
[2017-03-29 20:14] VITALS: RESP 20
[2017-03-30] MEDS: Piperacillin/Tazobact 3.375 GM in Sodium Chloride 0.9% 100 ML IVPB SCH ×2 (03:20→10:18)
[2017-03-30] MEDS: Levothyroxine 25 MCG TAB PO SCH (06:48)
[2017-03-30] MEDS: DESCOVY PO SCH (10:18)
[2017-03-30] MEDS: DOLUTEGRAVIR SODIUM 50 MG PO SCH (10:18)
[2017-03-30] MEDS: Azithromycin 500 MG in Sodium Chloride 0.9% 250 ML IVPB SCH (10:25)
[2017-03-30 12:45] VITALS: BP 121/65; PULSE 70; TEMP 98; O2SAT 99
[2017-03-30 13:22] LABS: BLOOD UREA NITROGEN 4 mg/dl (7-17); CALCIUM 10.1 mg/dL (8.4-10.2); CARBON DIOXIDE 22 mmol/L (22-30); CHLORIDE 108 mmol/L (98-107); GFR AFRICAN-AMERICAN > 60; GLUCOSE,RANDOM 84 mg/dL (65-105); POTASSIUM 4.5 MMOL/L (3.6-5.0); SODIUM 141 mmol/l (132-148)
--- NOTE | 2017-03-30 13:39 | CP.PCM.DIS ---
Provider - Provider Date of Admission: 03/25/17 11:02 Attending physician: Itzel Shearer MD Primary care physician: Troy Dean MD Time Spent in preparation of Discharge (in minutes): 25 Diagnosis - Discharge Diagnosis (1) Sepsis Status: Acute (2) Choledocholithiasis Status: Acute (3) Pneumonia Status: Acute (4) Ascending cholangitis Status: Acute (5) Diabetes mellitus Status: Chronic (6) HIV (human immunodeficiency virus infection) Status: Chronic Hospital Course - Lab Results Lab Results: Micro Results 03/25/17 11:30 Blood Blood Culture - Final NO GROWTH AFTER 5 DAYS 03/25/17 11:30 Blood Gram Stain - Final TEST NOT PERFORMED Most Recent Lab Values WBC 6.1 K/uL (4.8-10.8) 03/28/17 05:00 RBC 3.46 Mil/uL (3.80-5.20) L 03/28/17 05:00 Hgb 10.4 g/dL (12.0-16.0) L 03/28/17 05:00 Hct 29.6 % (34.0-47.0) L 03/28/17 05:00 MCV 85.6 fl (81.0-99.0) 03/28/17 05:00 MCH 30.2 pg (27.0-31.0) 03/28/17 05:00 MCHC 35.2 g/dL (33.0-37.0) 03/28/17 05:00 RDW 20.0 % (11.5-14.5) H 03/28/17 05:00 Plt Count 235 K/uL (130-400) 03/28/17 05:00 MPV 8.5 fl (7.2-11.7) 03/28/17 05:00 Neut % (Auto) 73.3 % (50.0-75.0) 03/28/17 05:00 Lymph % (Auto) 7.6 % (20.0-40.0) L 03/28/17 05:00 [place] % (Auto) 10.1 % (0.0-10.0) H 03/28/17 05:00 Eos % (Auto) 4.4 % (0.0-4.0) H 03/28/17 05:00 Baso % (Auto) 4.6 % (0.0-2.0) H 03/28/17 05:00 Neut # 4.5 K/uL (1.8-7.0) 03/28/17 05:00 Lymph # 0.5 K/uL (1.0-4.3) L 03/28/17 05:00 [place] # 0.6 K/uL (0.0-0.8) 03/28/17 05:00 Eos # 0.3 K/uL (0.0-0.7) 03/28/17 05:00 Baso # 0.3 K/uL (0.0-0.2) H 03/28/17 05:00 Neutrophils % (Manual) 76 % (42-75) H 03/28/17 05:00 Band Neutrophils % 3 % (0-2) H 03/25/17 02:40 Lymphocytes % (Manual) 8 % (20-50) L 03/28/17 05:00 Reactive Lymphs % 2 % (0-0) H 03/28/17 05:00 Monocytes % (Manual) 11 % (0-10) H 03/28/17 05:00 Eosinophils % (Manual) 2 % (0-7) 03/28/17 05:00 Basophils % (Manual) 1 % (0-2) 03/28/17 05:00 Platelet Estimate Normal (NORMAL) 03/28/17 05:00 Plt Clumps, EDTA Present 03/25/17 02:40 Large Platelets Present 03/28/17 05:00 Hypochromasia (manual) Slight 03/28/17 05:00 Poikilocytosis (manual Slight 03/28/17 05:00 Anisocytosis (manual) Moderate 03/28/17 05:00 Target Cells Slight 03/28/17 05:00 Tear Drop Cells Slight 03/28/17 05:00 Ovalocytes Slight 03/28/17 05:00 PT 10.4 SECONDS (9.6-11.2) 03/27/17 08:45 INR 1.00 (0.92-1.08) 03/27/17 08:45 pCO2 36 mm/Hg (35-45) 03/25/17 10:35 pO2 101 mm/Hg (80-100) H 03/25/17 10:35 HCO3 25.3 mmol/L (21-28) 03/25/17 10:35 ABG pH 7.44 (7.35-7.45) 03/25/17 10:35 ABG Total CO2 25.6 mmol/L (22-28) 03/25/17 10:35 ABG O2 Saturation 99.1 % (95-98) H 03/25/17 10:35 ABG Base Excess 0.5 mmol/L (-2.0-3.0) 03/25/17 10:35 Jose Juan Test Yes 03/25/17 10:35 ABG Potassium 3.9 mmol/L (3.6-5.2) 03/25/17 10:35 A-a O2 Difference 4.0 mm/Hg 03/25/17 10:35 Sodium 136.0 mmol/L (132-148) 03/25/17 10:35 Chloride 112.0 mmol/L (98-107) H 03/25/17 10:35 Glucose 107 mg/dL (65-105) H 03/25/17 10:35 Lactate 1.0 mmol/L (0.7-2.1) 03/25/17 10:35 FiO2 21.0 % 03/25/17 10:35 Sodium 141 mmol/l (132-148) 03/30/17 12:57 Potassium 4.5 MMOL/L (3.6-5.0) 03/30/17 12:57 Chloride 108 mmol/L (98-107) H 03/30/17 12:57 Carbon Dioxide 22 mmol/L (22-30) 03/30/17 12:57 Anion Gap 16 (10-20) 03/30/17 12:57 BUN 4 mg/dl (7-17) L 03/30/17 12:57 Creatinine 0.7 mg/dL (0.7-1.2) 03/30/17 12:57 Est GFR ( Amer) > 60 03/30/17 12:57 Est GFR (Non-Af Amer) > 60 03/30/17 12:57 POC Glucose (mg/dL) 105 mg/dL (65-110) 03/30/17 11:28 Random Glucose 84 mg/dL (65-105) 03/30/17 12:57 Calcium 10.1 mg/dL (8.4-10.2) 03/30/17 12:57 Total Bilirubin 0.9 mg/dl (0.2-1.3) 03/28/17 05:00 AST 77 U/L (14-36) H D 03/28/17 05:00 ALT 111 U/L (9-52) H D 03/28/17 05:00 Alkaline Phosphatase 127 U/L (38-126) H D 03/28/17 05:00 Total Protein 6.9 G/DL (6.3-8.2) 03/28/17 05:00 Albumin 3.2 g/dL (3.5-5.0) L 03/28/17 05:00 Globulin 3.7 gm/dL (2.2-3.9) 03/28/17 05:00 Albumin/Globulin Ratio 0.9 (1.0-2.1) L 03/28/17 05:00 Lipase 219 U/L (23-300) 03/25/17 02:40 Arterial Blood Potassium 3.9 mmol/L (3.6-5.2) 03/25/17 10:35 Urine Color Yellow (YELLOW) 03/25/17 03:20 Urine Clarity Slighty-cloudy (Clear) 03/25/17 03:20 Urine pH 6.0 (5.0-8.0) 03/25/17 03:20 Ur Specific [place] 1.011 (1.003-1.030) 03/25/17 03:20 Urine Protein Negative mg/dL (NEGATIVE) 03/25/17 03:20 Urine Glucose (UA) Neg mg/dL (Normal) 03/25/17 03:20 Urine Ketones Negative mg/dL (NEGATIVE) 03/25/17 03:20 Urine Blood Negative (NEGATIVE) 03/25/17 03:20 Urine Nitrate Negative (NEGATIVE) 03/25/17 03:20 Urine Bilirubin Negative (NEGATIVE) 03/25/17 03:20 Urine Urobilinogen 0.2-1.0 mg/dL (0.2-1.0) 03/25/17 03:20 Ur Leukocyte Esterase Negative Amy/uL (Negative) 03/25/17 03:20 Urine RBC (Auto) 2 /hpf (0-3) 03/25/17 03:20 Urine Microscopic WBC 3 /hpf (0-5) 03/25/17 03:20 Ur Squamous Epith Cells 1 /hpf (0-5) 03/25/17 03:20 Urine Bacteria Rare (<OCC) 03/25/17 03:20 Hyaline Casts 3-5 /hpf (0-2) H 03/25/17 03:20 Stool Occult Blood Negative (NEGATIVE) 03/27/17 08:30 Salicylates < 1.0 mg/dl 03/25/17 09:04 Acetaminophen < 10.0 ug/ml (10.0-30.0) L 03/25/17 09:04 Hepatitis A IgM Ab Negative (NEGATIVE) 03/25/17 19:28 Hep Bs Antigen Negative (NEGATIVE) 03/25/17 19:28 Hep B Core IgM Ab Negative (NEGATIVE) 03/25/17 19:28 Hepatitis C Antibody Negative (NEGATIVE) 03/25/17 19:28 HIV 1&2 Antibody Screen Reactive (NEGATIVE) H 03/25/17 19:28 Discharge Exam - Head Exam Head Exam: NORMOCEPHALIC Discharge Plan - Discharge Medications Prescriptions: Cephalexin [Keflex] 500 mg PO Q8 #9 capsule - Follow Up Plan Condition: FAIR Disposition: HOME/ ROUTINE Referrals: Troy Dean MD [Primary Care Provider] -
--- NOTE | 2017-04-01 14:07 | RAD ---
PROCEDURE: Fluoroscopy up to 1 hr. HISTORY: ERCP COMPARISON: None TECHNIQUE: Standard FINDINGS: Submitted images from the current procedure: 8.0 IMPRESSION: Total fluoroscopic time (continuous mode) utilized during the procedure: 83 seconds.
== END 2017-03-30 16:00 | disposition home or self-care (01) | DRG 444 ==
LOC: H.ER 02:03 → H.ERHOLD 11:02 → H.TEL 13:55
PROVIDERS: ADMIT Internal Medicine; ATTEND Internal Medicine
PROC: 0FCD8ZZ Extirpation of Matter from Pancreatic Duct, Via Natural or Artificial Opening Endoscopic (ICD-10-PCS; 2017-03-27)
PROC: 0FC98ZZ Extirpation of Matter from Common Bile Duct, Via Natural or Artificial Opening Endoscopic (ICD-10-PCS; principal; 2017-03-27 13:30)
DX: K80.50 Calculus of bile duct without cholangitis or cholecystitis without obstruction (principal); J18.9 Pneumonia, unspecified organism; A41.9 Sepsis, unspecified organism; E11.9 Type 2 diabetes mellitus without complications; E86.0 Dehydration; Z21 Asymptomatic human immunodeficiency virus [HIV] infection status; I10 Essential (primary) hypertension; E78.00 Pure hypercholesterolemia, unspecified; E78.5 Hyperlipidemia, unspecified; Z96.649 Presence of unspecified artificial hip joint

== ENCOUNTER 2018-04-24 10:58 | Emergency (ER) | payer OTHER ==
[2018-04-24 11:08] VITALS: TEMP 97.4; BMI 23.0
--- NOTE | 2018-04-24 11:29 | ED PDOC ---
HPI: General Adult Time Seen by Provider: 04/24/18 11:19 Chief Complaint (Nursing): Dizziness/Lightheaded Chief Complaint (Provider): dizziness History Per: Patient, Family (granddaughter) History/Exam Limitations: language barrier (canadian) Onset/Duration Of Symptoms: Other (awoke with severe dizziness) Have you had recent travel within the past 21 days to any of the following countries: [place], [place], [place] or [place]?: No Current Symptoms Are (Timing): Still Present Severity: Severe Additional Complaint(s): pt p/w + severe dizziness/room spinning sensation as she awoke this morning around 7:30am; pt states + severe dizziness with room spinning clockwise, pt states she felt immediate nausea, and vomited a few times; per granddaughter, pt vomited at least 4-5 episodes; pt also complained of loose bowel movement/ diarrhea x 3-4 episodes today, just prior to ED arrival; pt states she cant see well when she is dizzy; pt states no headache, no neck pain, no fever/chills/ sweats, NO chest pain, no sob, + palpitations, mild lower abd cramps, no urinary changes, no fall/trauma/sick contact, no travel; pt denied any other complaints pt denied slurr speech, no gait changes pt is here for further eval PCP: Dr Ismael Johnson pt lives alone pt is right hand dominate Past Medical History Reviewed: Historical Data, Nursing Documentation, Vital Signs Vital Signs: Last Vital Signs Temp 97.4 F L 04/24/18 11:07 Pulse 66 04/24/18 11:07 Resp 16 04/24/18 11:07 BP 127/58 L 04/24/18 11:07 Pulse Ox 97 04/24/18 12:28 - Medical History PMH: Diabetes, HIV, HTN, Hypercholesterolemia, Hypothyroidism Denies: Chronic Kidney Disease - Surgical History Surgical History: Appendectomy, Cholecystectomy - Family History Family History: States: Hypertension - Living Arrangements Living Arrangements: Alone - Social History Current smoker - smoking cessation education provided: No Ex-Smoker (has not smoked in the last 12 months): No Alcohol: None Drugs: Denies - Immunization History Hx Influenza Vaccination: Yes Hx Pneumococcal Vaccination: Yes - Home Medications Home Medications: Ambulatory Orders Medication Instructions Recorded Dolutegravir Sodium [Tivicay] 50 mg PO DAILY 03/25/17 Emtricitabine/Tenofov Alafenam 1 tab PO DAILY 03/25/17 [Descovy 200-25 mg Tablet] Levocetirizine Dihydrochloride 5 mg PO HS 03/25/17 [Xyzal] Levothyroxine [Synthroid] 25 mcg PO DAILY 03/25/17 Meclizine [Antivert] 12.5 mg PO TID PRN 03/25/17 Meloxicam [Mobic] 15 mg PO DAILY 03/25/17 Pravastatin Sodium 20 mg PO DAILY 03/25/17 Sitagliptin Phos/Metformin HCl 1 tab PO BID 03/25/17 [Janumet 50-1,000 mg Tablet] Tramadol HCl [Ultram] 50 mg PO Q8 03/25/17 Cephalexin [Keflex] 500 mg PO Q8 #9 capsule 03/30/17 Meclizine [Meclizine*] 25 mg PO Q6 PRN #30 tab 04/24/18 Metoclopramide [Reglan] 10 mg PO TID PRN #30 tab 04/24/18 - Allergies Allergies/Adverse Reactions: Allergies Allergy/AdvReac Type Severity Reaction Status Date / Time No Known Allergies Allergy Verified 04/24/18 11:26 Review of Systems ROS Statement: Except As Marked, All Systems Reviewed And Found Negative Constitutional: Positive for: Weakness. Negative for: Fever, Chills, Sweats Eyes: Negative for: Pain, Vision Change ENT: Negative for: Ear Pain Cardiovascular: Positive for: Palpitations, Light Headedness. Negative for: Chest Pain, Orthopnea Respiratory: Negative for: Cough, Shortness of Breath, SOB with Exertion Gastrointestinal: Positive for: Nausea, Vomiting, Abdominal Pain, Diarrhea Genitourinary Female: Negative for: Dysuria, Frequency, Hematuria Musculoskeletal: Negative for: Neck Pain, Back Pain Skin: Negative for: Rash Neurological: Positive for: Weakness, Dizziness. Negative for: Altered Mental Status, Headache Psych: Negative for: Anxiety, Depression Physical Exam - Reviewed Nursing Documentation Reviewed: Yes Vital Signs Reviewed: Yes (WNL) - Physical Exam Appears: Positive for: Well, Non-toxic, No Acute Distress, Uncomfortable Head Exam: Positive for: ATRAUMATIC, NORMAL INSPECTION, NORMOCEPHALIC Skin: Positive for: Normal Color, Warm, Dry Eye Exam: Positive for: Normal appearance, EOMI, PERRL. Negative for: Nystagmus ENT: Positive for: Normal ENT Inspection, Other (poor dentitions, no drooling/ stridor, no exudate/lesions) Neck: Positive for: Normal Cardiovascular/Chest: Positive for: Regular Rate, Rhythm, Chest Non Tender. Negative for: Murmur Respiratory: Positive for: Normal Breath Sounds, Other (CTA b/l, no w/r/r, no tachypenia, no accessory muscle use noted) Gastrointestinal/Abdominal: Positive for: Normal Exam, Bowel Sounds, Soft, Other (well nourished female, SOFT/ND/NT, no focal tenderness noted, no hanson' s sign, no mcburney's point tenderness, no masses/rebound/guarding/rigidity) Back: Positive for: Normal Inspection Extremity: Positive for: Normal ROM, Other (strength 5/5 grossly intact in all limbs, neurovasc intact b/l) Neurologic/Psych: Positive for: Alert, clay stain mixer II-XII, Oriented, Other (CNII-XII WNL , no facial asymmetries, no slurr speech, oriented x 3, NIH stroke scale ~ 0) - Laboratory Results Result Diagrams: 04/24/18 13:04 04/24/18 11:56 Interpretation Of Abnormal: mild anemia, otherwise WNL labs - ECG ECG: Positive for: Interpreted By Me, Viewed By Me Interpretation Of ECG: NSR at 65 bpm, normal axis, no ectopy, no st-t changes, slight poor baseline, NORMAL EKG otherwise; unchanged compare with old ekg 02/2017 O2 Sat by Pulse Oximetry: 97 Pulse Ox Interpretation: Normal - Radiology X-Ray: Viewed By Me, Read By Radiologist - Progress ED Course And Treament: HISTORY: COMPARISON: 03/25/2017. TECHNIQUE: Chest PA and lateral FINDINGS: LINES AND TUBES: None. LUNG AND PLEURA: The lungs are well inflated and clear. There is mild pulmonary venous congestion. No pleural effusion or pneumothorax. HEART AND MEDIASTINUM: There is mild cardiomegaly. Atherosclerotic aortic arch calcifications are present. The hilar and mediastinal contours are within normal limits. SKELETAL STRUCTURES: The bony structures are within normal limits for the patient's age. VISUALIZED UPPER ABDOMEN: Normal. OTHER FINDINGS: None. IMPRESSION: Mild cardiomegaly and pulmonary venous congestion. No active pulmonary disease. 1pm - pt felt improved pt states her dizziness is gone, no nausea 235pm - pt tolerated po well pt continues to feel well, comfortable, NAD 300pm - pt is able to ambulate with ease pt states NO dizziness, NO nausea pt tolerated po challenge well pt remained at baseline mental status NIH stroke scale ~ 0 vital signs WNL pt/family are made aware of her medical results pt is encouraged fluids pt is encouraged min weight bearing, avoid prolonged walking/standing pt will f/u as directed pt will be discharged home Re-evaluation Time: 13:00 Condition: Re-examined, Improved Medical Decision Making Medical Decision Making: Impression: dizziness/weakness, diarrhea/vomiting i have consider all the differential diagnosis regarding pt's chief medical complaints/clinical findings, including but are not limited to: r/o central vs peripherial cause vertigo; diarrhea/vomiting A/P: dizziness/weakness/diarrhea/vomiting - labs - iv - xray - ct - unlikely acs - supportive care - observe/reevaluation Disposition - Clinical Impression Clinical Impression: Dizziness, Vertigo - Patient ED Disposition Is Patient to be Admitted: No Counseled Patient/Family Regarding: Studies Performed, Diagnosis, Need For Followup, Rx Given - Disposition Referrals: PCP,NO [Non-Staff] - [facility] [Outside] [facility] [Outside] [facility] [Outside] Disposition: Routine/Home Disposition Time: 15:12 Condition: STABLE Additional Instructions: Make sure to see your doctor in 1-2 days DRINK PLENTY OF FLUIDS take your medications as prescribed RETURN TO ED IF worse pain, cant breath, persistent vomiting, high fever >101- 102 for hours, altered behavior, slurr speech, facial changes, focal weakness ( arm/leg or both), unable to urinate, heavy/persistent bleeding, passing out, chest pain, or other medical emergencies Prescriptions: Meclizine [Meclizine*] 25 mg PO Q6 PRN #30 tab PRN Reason: Dizziness Metoclopramide [Reglan] 10 mg PO TID PRN #30 tab PRN Reason: Nausea/Vomiting Instructions: Vertigo (a Type of Dizziness) Forms: [employer] [facility] (Chilean) Print Language: INDONESIAN
[2018-04-24] MEDS ORDERED: Sodium Chloride 0.9% 1,000 ML IV SCH (11:45)
[2018-04-24 12:20] LABS: ALT/SGPT 37 U/L (9-52); AST/SGOT 52 U/L (14-36); BLOOD UREA NITROGEN 13 mg/dl (7-17); CALCIUM 9.3 mg/dL (8.4-10.2); GFR AFRICAN-AMERICAN > 60; GFR NON-AFRICAN AMERICAN > 60
--- NOTE | 2018-04-24 12:24 | RAD ---
HISTORY: COMPARISON: 03/25/2017. TECHNIQUE: Chest PA and lateral FINDINGS: LINES AND TUBES: None. LUNG AND PLEURA: The lungs are well inflated and clear. There is mild pulmonary venous congestion. No pleural effusion or pneumothorax. HEART AND MEDIASTINUM: There is mild cardiomegaly. Atherosclerotic aortic arch calcifications are present. The hilar and mediastinal contours are within normal limits. SKELETAL STRUCTURES: The bony structures are within normal limits for the patient's age. VISUALIZED UPPER ABDOMEN: Normal. OTHER FINDINGS: None. IMPRESSION: Mild cardiomegaly and pulmonary venous congestion. No active pulmonary disease.
[2018-04-24 12:43] LABS: INR 1.2 (0.9-1.2); PARTIAL THROMBOPLASTIN TIME 46.6 Seconds (25.6-37.1); PROTHROMBIN TIME 12.9 Seconds (9.8-13.1)
--- NOTE | 2018-04-24 12:43 | CT ---
PROCEDURE: CT HEAD WITHOUT CONTRAST. HISTORY: Dizziness COMPARISON: None available. TECHNIQUE: Axial computed tomography images were obtained through the head/brain without intravenous contrast. Radiation dose: Total exam DLP = 900.64 mGy-cm. This CT exam was performed using one or more of the following dose reduction techniques: Automated exposure control, adjustment of the mA and/or kV according to patient size, and/or use of iterative reconstruction technique. FINDINGS: HEMORRHAGE: No intracranial hemorrhage. BRAIN: Status post right ICA terminus aneurysm clipping. Evaluation of the right medial and inferior anterior cranial fossa is limited due to streak artifacts the there is cystic encephalomalacia in the right subcortical frontal lobe with ex vacuo dilatation of the right frontal horn and cystic encephalomalacia in the right temporal lobe. There are mild chronic microangiopathic changes. There is no mass, mass effect or abnormal extra-axial fluid collection. VENTRICLES: There is mild age-related global parenchymal volume loss and proportionate enlargement of the ventricles and cortical sulci. CALVARIUM: Status post right frontal craniotomy. PARANASAL SINUSES: Predominantly clear. MASTOID AIR CELLS: Predominantly clear. OTHER FINDINGS: None. IMPRESSION: No acute intracranial abnormality. Mild chronic microangiopathic changes and mild age-related global parenchymal volume loss. Status post right ICA aneurysm clipping, cystic encephalomalacia in the right temporal lobe and right frontal subcortical white matter.
[2018-04-24 13:08] LABS: BASO % 0.5 % (0.0-2.0); EOS # 0.1 K/uL (0.0-0.7); EOS % 0.9 % (0.0-4.0); HEMOGLOBIN 10.3 g/dL (12.0-16.0); LYMPH # 0.2 K/uL (1.0-4.3); LYMPH % 2.7 % (20.0-40.0); MEAN CELL VOLUME 80.4 fl (81.0-99.0); MEAN CORPUSCULAR HEMOGLOBIN 27.3 pg (27.0-31.0); MEAN CORPUSCULAR HGB CONC 33.9 g/dL (33.0-37.0); MEAN PLATELET VOLUME 8.3 fl (7.2-11.7); MONO # 0.7 K/uL (0.0-0.8); MONO % 7.8 % (0.0-10.0); NEUT # 7.8 K/uL (1.8-7.0); NEUT % 88.1 % (50.0-75.0); NRBC % 0.1 % (0.0-0.0); PLATELET COUNT 288 K/uL (130-400); RBC 3.78 Mil/uL (3.80-5.20); RED CELL DISTRIBUTION WIDTH 19.3 % (11.5-14.5); WHITE BLOOD COUNT 8.8 K/uL (4.8-10.8)
[2018-04-24 13:35] LABS: URINE BILIRUBIN NEGATIVE (NEGATIVE); URINE BLOOD NEGATIVE (NEGATIVE); URINE CLARITY CLEAR (Clear); URINE COLOR YELLOW (YELLOW); URINE GLUCOSE (UA) NEG (Normal); URINE LEUKOCYTE ESTERASE NEG Leu/uL (Negative); URINE PROTEIN NEGATIVE (NEGATIVE); URINE UROBILINOGEN 0.2-1.0 mg/dL (0.2-1.0)
[2018-04-24 13:53] LABS: EOSINOPHIL 1 % (0-7); LYMPHOCYTE 7 % (20-50); MONOCYTE 6 % (0-10); MYELOCYTE 1 % (0-0); NEUTROPHIL 85 % (42-75); PLATELET ESTIMATE NORMAL (NORMAL); TOTAL CELLS COUNTED 100
[2018-04-24 13:54] LABS: ANISOCYTOSIS SLIGHT; HYPOCHROMIC SLIGHT; TARGET CELLS MODERATE
[2018-04-24 15:38] VITALS: BP 129/68; PULSE 69; RESP 17; O2SAT 99
--- NOTE | 2018-04-25 15:00 | CARD ---
APPROVED REPORT EKG Measurement Heart [id number] [id number] <Conclusion> Normal sinus rhythm Normal ECG
== END 2018-04-24 15:37 | disposition home or self-care (01) ==
LOC: H.ER 10:58
DX: R19.7 Diarrhea, unspecified (principal); R42 Dizziness and giddiness; E03.9 Hypothyroidism, unspecified; E11.9 Type 2 diabetes mellitus without complications; I10 Essential (primary) hypertension; Z87.891 Personal history of nicotine dependence; E78.00 Pure hypercholesterolemia, unspecified
CPT/HCPCS: 70450; 71046; 80053; 81003; 82948; 84443; 84484; 85025; 85610; 85730; 93005; 96374; 99284; J2765; J7040

== ENCOUNTER 2018-10-31 00:17 | Inpatient (IN) | payer OTHER ==
[2018-10-31 00:17] VITALS: BMI 23.0
--- NOTE | 2018-10-31 01:16 | ED PDOC ---
HPI: Abdomen Time Seen by Provider: 10/31/18 00:44 Chief Complaint (Nursing): Abdominal Pain Chief Complaint (Provider): Abdominal Pain History Per: Patient History/Exam Limitations: no limitations Onset/Duration Of Symptoms: Days (1x day) Current Symptoms Are (Timing): Still Present Severity: Moderate Pain Scale Rating Of: 9 (initially, 4 in ED.) Location Of Pain/Discomfort: RUQ Associated Symptoms: Nausea, Vomiting (4x episodes, non-bilious, non-bloody). denies: Fever, Chest Pain, Urinary Symptoms, Other (shortness of breath) Additional Complaint(s): 73 year old female with a past medical history of diabetes, HIV, and peripheral vascular disease presents to the ED with complaints of right upper quadrant pain for 1x day. Patient states that the pain was initially a level 9/10, but in the ED it is a 4/10. Patient report having 4x episodes of nausea and vomiting (non-bilious, non-bloody) today. Patient denies having fevers, chest pain, shortness of breath, and urinary symptoms. PMD: Ferny Little MD Past Medical History Reviewed: Historical Data, Nursing Documentation, Vital Signs Vital Signs: Last Vital Signs Temp 97.7 F 10/31/18 00:24 Pulse 68 10/31/18 00:24 Resp 18 10/31/18 00:24 BP 126/63 10/31/18 00:24 Pulse Ox 97 10/31/18 00:24 - Medical History PMH: Diabetes, HIV, HTN, Hypercholesterolemia, Hypothyroidism Denies: Chronic Kidney Disease Other PMH: peripheral vascular disease - Surgical History Surgical History: Appendectomy, Cholecystectomy Other surgeries: gall bladder surgery (2x times) - Family History Family History: States: Hypertension - Social History Current smoker - smoking cessation education provided: No Alcohol: None Drugs: Denies - Immunization History Hx Influenza Vaccination: Yes Hx Pneumococcal Vaccination: Yes - Home Medications Home Medications: Ambulatory Orders Medication Instructions Recorded RX: Meloxicam [Mobic] 15 mg PO DAILY 03/25/17 RX: Pravastatin Sodium 20 mg PO DAILY 03/25/17 RX: Sitagliptin Phos/Metformin HCl 1 tab PO BID 03/25/17 [Janumet 50-1,000 mg Tablet] Bictegrav/Emtricit/Tenofov Ala 1 tab PO DAILY 10/31/18 [Biktarvy 50-200-25 mg Tablet] Ergocalciferol (Vitamin D2) 50,000 unit PO HS 10/31/18 [Vitamin D2] RX: Alendronate [Fosamax] 70 mg PO DAILY 10/31/18 RX: Escitalopram [Lexapro] 10 mg PO DAILY 10/31/18 RX: Ibuprofen [Motrin Tab] 600 mg PO TID PRN 10/31/18 RX: Oxybutynin Chloride 10 mg PO DAILY 10/31/18 [Oxybutynin Chloride ER] - Allergies Allergies/Adverse Reactions: Allergies Allergy/AdvReac Type Severity Reaction Status Date / Time No Known Allergies Allergy Verified 10/31/18 01:35 Review of Systems ROS Statement: Except As Marked, All Systems Reviewed And Found Negative Constitutional: Negative for: Fever Cardiovascular: Negative for: Chest Pain Respiratory: Negative for: Shortness of Breath Gastrointestinal: Positive for: Nausea, Vomiting (4x episodes, non-bilious, non- bloody), Abdominal Pain (RUQ) Genitourinary Female: Negative for: Dysuria, Frequency Physical Exam - Reviewed Nursing Documentation Reviewed: Yes Vital Signs Reviewed: Yes - Physical Exam Appears: Positive for: Well, Non-toxic, No Acute Distress Head Exam: Positive for: ATRAUMATIC, NORMOCEPHALIC Skin: Positive for: Normal Color Cardiovascular/Chest: Positive for: Regular Rate, Rhythm Respiratory: Positive for: Normal Breath Sounds Gastrointestinal/Abdominal: Positive for: Soft, Other ((+) hanson's sign) Neurologic/Psych: Positive for: Alert, Oriented (3x) - Laboratory Results Result Diagrams: 10/31/18 01:33 10/31/18 01:33 - ECG O2 Sat by Pulse Oximetry: 97 (RA) Pulse Ox Interpretation: Normal Medical Decision Making Medical Decision Makin:44 Initial impression: 73 year old female with right upper quadrant abdominal pain. Initial plan: * CT abdomen and pelvis with IV contrast only * US abdomen limited * labs * reevaluation 2:25 US abdomen limited read and reviewed by radiologist. Findings: The liver is normal in size measuring 15.4 cm. Prior cholecystectomy. C alcification is seen in the right hepatic lobe, probably a benign calcified granuloma. Mildly dilated common bile duct measuring 8 mm. Unremarkable right kidney measuring 9.4 x 2.4 x3.4 cm. Normal pancreas. Normal IVC. Normal aorta. Impression: Cholecystectomy. Mildly dilated common bile duct. 5:02 CT abdomen and pelvis with PO and IV contrast read and reviewed by radiologist. COMMENTS: Bilateral basilar subsegmental atelectatic pulmonary changes. Moderate cardiomegaly. Small sliding hiatal hernia. Wedge-shaped hypodense hepatic infiltration of the right hepatic lobe measuring 7.2x3.9 cm. Recurrent choledocholithiasis of the most distal aspect of the common bile duct with the largest one measuring 5.2 mm. Cholecystectomy. Moderately dilated extrahepatic biliary tree, a recurrent/unchanged finding. Uncomplicated colonic diverticulosis. Bilateral changes of gluteal panniculitis. Unchanged chronic finding. Moderate osteopenia. Bilateral hip arthroplasty with metallic prostheses in good position. Absent spleen. Scanner and calcified density is identified in the topography of the spleen. Diffuse osteopenia and permeative patterns of the bone suggestive of diffuse infiltrative bone marrow disease. Unchanged. The pancreas is of normal contour and attenuation characteristics. There is no evidence of adrenal mass. Both kidneys demonstrate prompt and equal nephrograms. The kidneys are normal in size, shape and configuration. There is no evidence of renal or ureteral mass. No renal or ureteral calculi are identified. There is no hydroureter or hydronephrosis. No evidence for appendicitis. There is no bowel wall thickening. No evidence for small or large bowel obstruction. There is no evidence of abdominal ascites or lymphadenopathy. There is no evidence of intrinsic or extrinsic bladder mass. There is no pelvic ascites or lymphadenopathy. Images of the lung bases show no evidence of pleural or parenchymal mass. There are no pleural effusions. The bony structures are free of lytic or blastic lesions. IMPRESSION: Bilateral basilar subsegmental atelectatic pulmonary changes. Moderate cardiomegaly. Small sliding hiatal hernia. Wedge-shaped hypodense hepatic infiltration of the right hepatic lobe measuring 7.2x3.9 cm. Fatty infiltration versus neoplastic pathology. Irregular hepatic contour suggestive of chronic parenchymal liver disease, un changed. Recurrent choledocholithiasis of the most distal aspect of the common bile duct with the largest one measuring 5.2 mm. Cholecystectomy. Moderately dilated extrahepatic biliary tree, a recurrent/unchanged finding. Uncomplicated colonic diverticulosis. Bilateral changes of gluteal panniculitis. Unchanged chronic finding. Moderate osteopenia. Bilateral hip arthroplasty with metallic prostheses in good position. Absent spleen. Scanner and calcified density is identified in the topography of the spleen. Diffuse osteopenia and permeative patterns of the bone suggestive of diffuse infiltrative bone marrow disease. Unchanged. 5:30 Labs reviewed, significant for marked elevation of transaminases and total biliruben. Patient is diagnosed with choledocholithiasis and transminitis. Patient will be admitted as discussed with . Surgical consult called. Case discussed with . 6:[address] Freedman GI on-call. --- Scribe Attestation: Documented byVida Jaeger, acting as a scribe for Inderjit Cotton MD. Provider Scribe Attestation: All medical record entries made by the Scribe were at my direction and pe rsonally dictated by me. I have reviewed the chart and agree that the record accurately reflects my personal performance of the history, physical exam, medical decision making, and the department course for this patient. I have also personally directed, reviewed, and agree with the discharge instructions and disposition. Disposition - Clinical Impression Clinical Impression: Choledocholithiasis, Transaminitis - Patient ED Disposition Is Patient to be Admitted: Yes Discussed With : Mina Reyes Counseled Patient/Family Regarding: Studies Performed, Diagnosis - Disposition Disposition Time: 05:00 Condition: FAIR - Pt Status Changed To: Hospital Disposition Of: Inpatient - Admit Certification Admit to Inpatient:: After my assessment, the patient will require hospitalization for at least two midnights. This is because of the severity of symptoms shown, intensity of services needed, and/or the medical risk in this patient being treated as an outpatient.
[2018-10-31 02:00] LABS: BASO # 0.1 K/uL (0.0-0.2); BASO % 0.8 % (0.0-2.0); EOS # 0.2 K/uL (0.0-0.7); EOS % 1.8 % (0.0-4.0); HEMOGLOBIN 9.1 g/dL (12.0-16.0); LYMPH # 3.6 K/uL (1.0-4.3); LYMPH % 40.7 % (20.0-40.0); MEAN CELL VOLUME 92.8 fl (81.0-99.0); MEAN CORPUSCULAR HEMOGLOBIN 32.7 pg (27.0-31.0); MEAN CORPUSCULAR HGB CONC 35.3 g/dL (33.0-37.0); MONO # 0.6 K/uL (0.0-0.8); MONO % 7.2 % (0.0-10.0); NEUT # 4.4 K/uL (1.8-7.0); NEUT % 49.5 % (50.0-75.0); NRBC % 0.2 % (0.0-0.0); RBC 2.79 Mil/uL (3.80-5.20); WHITE BLOOD COUNT 8.9 K/uL (4.8-10.8)
[2018-10-31 02:08] LABS: ALB/GLOB RATIO 0.6 (1.0-2.1); ALBUMIN 3.3 g/dL (3.5-5.0); ALT/SGPT 341 U/L (9-52); BLOOD UREA NITROGEN 14 mg/dl (7-17); CALCIUM 9.8 mg/dL (8.4-10.2); GFR NON-AFRICAN AMERICAN > 60; LIPASE 135 U/L (23-300)
[2018-10-31 02:33] LABS: AST/SGOT 1389 U/L (14-36)
[2018-10-31] MEDS ORDERED: Iohexol 300 100 ML IJ ONE (03:13)
[2018-10-31] MEDS ORDERED: Sodium Chloride 0.9% 50 ML IV ONE (03:13)
[2018-10-31] MEDS ORDERED: Piperacillin/Tazobact 3.375 GM in Sodium Chloride 0.9% 100 ML IV STA (05:29)
[2018-10-31] MEDS ORDERED: Piperacillin/Tazobact 3.375 gm Inj IVPB ONE (05:44)
--- NOTE | 2018-10-31 06:22 | CP.PCM.CON ---
<Gagan Kirby - Last Filed: 10/31/18 07:37> History of Present Illness - History of Present Illness History of Present Illness: SURGERY CONSULT FOR DR. FELIPE 73F presents to the ER with abdominal pain. Patient has pain in the right upper quadrant that started yesterday. She states she had a similar episode last year but this pain felt worse. The pain was associated with nausea and vomiting which was bilious in nature. Patient denies fevers but admits to having chills which have now resolved. Patient states she has not been able to tolerate any form of diet. She had a similar episode last year and was diagnosed with choledocholithiasis at that time also. Patient underwent ERCP w papillotomy and stone retrieval with GI at that time. PMH: DM, HIV, HTN, HLD, Brain aneurysm PSH: B/L Hip replacement, Brain aneurysm clipping, ERCP, Cholecystectomy Social: Denies tobacco, alcohol, illicit drug use Allergies: NKDA Past Patient History - Infectious Disease Hx of Infectious Diseases: None - Past Medical History & Family History Past Medical History?: Yes - Past Social History Alcohol: None Drugs: Denies - CARDIAC Hx Hypercholesterolemia: Yes Hx Hypertension: Yes - PULMONARY Hx Respiratory Disorders: No - NEUROLOGICAL Hx Neurological Disorder: No - HEENT Hx HEENT Problems: No - RENAL Hx Chronic Kidney Disease: No - ENDOCRINE/METABOLIC Hx Hypothyroidism: Yes - HEMATOLOGICAL/ONCOLOGICAL Hx Human Immunodeficiency Virus (HIV): Yes - MUSCULOSKELETAL/RHEUMATOLOGICAL Hx Falls: No - GASTROINTESTINAL Hx Gastrointestinal Disorders: No - GENITOURINARY/GYNECOLOGICAL Hx Genitourinary Disorders: No - PSYCHIATRIC Hx Psychophysiologic Disorder: No Hx Substance Use: No - SURGICAL HISTORY Hx Appendectomy: Yes Hx Cholecystectomy: Yes - ANESTHESIA Hx Anesthesia: Yes Hx Anesthesia Reactions: No Hx Malignant Hyperthermia: No Meds Allergies/Adverse Reactions: Allergies Allergy/AdvReac Type Severity Reaction Status Date / Time No Known Allergies Allergy Verified 10/31/18 01:35 - Medications Medications: Current Medications Piperacillin Sod/Tazobactam (Sod 3.375 gm/ Sodium Chloride) 100 mls @ 100 mls/hr IV STAT [facility]; Protocol Stop: 10/31/18 06:28 Last Admin: 10/31/18 05:50 Dose: 100 mls/hr Physical Exam - Constitutional Appears: Non-toxic, No Acute Distress - ENT Exam ENT Exam: Mucous Membranes Moist - Respiratory Exam Respiratory Exam: Clear to Auscultation Bilateral, NORMAL BREATHING PATTERN - Cardiovascular Exam Cardiovascular Exam: REGULAR RHYTHM, +S1, +S2 - GI/Abdominal Exam GI & Abdominal Exam: Soft, Tenderness. absent: Distended, Firm, Guarding, Rebound, Rigid - Extremities Exam Extremities exam: Negative for: pedal edema, tenderness - Neurological Exam Neurological exam: Alert, Oriented x3 - Skin Skin Exam: Dry, Intact, Normal Color, Warm Results - Vital Signs Recent Vital Signs: Last Vital Signs Temp 97.7 F 10/31/18 00:24 Pulse 68 10/31/18 00:24 Resp 18 10/31/18 00:24 BP 126/63 10/31/18 00:24 Pulse Ox 97 10/31/18 06:14 - Labs Result Diagrams: 10/31/18 01:33 10/31/18 01:33 Labs: Laboratory Results - last 24 hr 10/31/18 10/31/18 01:33 01:33 WBC 8.9 RBC 2.79 L Hgb 9.1 L Hct 25.9 L MCV 92.8 D MCH 32.7 H MCHC 35.3 RDW 19.0 H Plt Count 282 MPV 9.0 Neut % (Auto) 49.5 L Lymph % (Auto) 40.7 H Josephine % (Auto) 7.2 Eos % (Auto) 1.8 Baso % (Auto) 0.8 Neut # (Auto) 4.4 Lymph # (Auto) 3.6 Josephine # (Auto) 0.6 Eos # (Auto) 0.2 Baso # (Auto) 0.1 Sodium 139 Potassium 4.3 Chloride 108 H Carbon Dioxide 31 H Anion Gap 4 L BUN 14 Creatinine 0.9 Est GFR ( Amer) > 60 Est GFR (Non-Af Amer) > 60 Random Glucose 96 Calcium 9.8 Total Bilirubin 3.4 H AST 1389 H ALT 341 H D Alkaline Phosphatase 552 H D Total Protein 8.8 H Albumin 3.3 L Globulin 5.5 H Albumin/Globulin Ratio 0.6 L Lipase 135 Assessment & Plan - Assessment and Plan (Free Text) Assessment: 73F with recurrent choledocholithiasis, s/p cholecystectomy [address] scan - choledocholithiasis in distal CBD, cholecystectomy Plan: NOP IVF Pain control Antibiotics Zosyn Patient cannot receive MRCP due to metal from brain aneurysm clipping Patient needs GI consultation for ERCP Discussed with Dr. Matteo Kirby, PGY3 <Gigi Felipe - Last Filed: 10/31/18 12:41> History of Present Illness - History of Present Illness History of Present Illness: Patient was seen and examined at the bedside. Agree with resident's note above. Meds - Medications Medications: Current Medications Alendronate Sodium (Fosamax) 70 mg PO DAILY [facility] Escitalopram Oxalate (Lexapro) 10 mg PO DAILY [facility] Home Med (Bictegrav/Emtricit/Tenofov Ala [Biktarvy 50-200-25 Mg Tablet]) 1 tab PO DAILY [facility] Hydromorphone HCl (Dilaudid) 1 mg IVP Q4 PRN PRN Reason: Pain, severe (8-10) Sodium Chloride (Sodium Chloride 0.9%) 1,000 mls @ 125 mls/hr IV .Q8H [facility] Stop: 11/01/18 08:06 Last Admin: 10/31/18 12:03 Dose: 125 mls/hr Piperacillin Sod/Tazobactam (Sod 3.375 gm/ Sodium Chloride) 100 mls @ 100 mls/hr IVPB Q8@0500,1300,2100 [facility]; Protocol Insulin Human Regular (Humulin R) 0 units SC ACHS [facility]; Protocol Metformin HCl (Glucophage) 1,000 mg PO BID [facility] Naproxen (Naproxen) 500 mg PO BID [facility] Ondansetron HCl (Zofran Inj) 4 mg IVP Q4 PRN PRN Reason: Nausea/Vomiting Oxybutynin Chloride (Ditropan Tab) 5 mg PO BID [facility] Pravastatin Sodium (Pravachol) 20 mg PO DAILY [facility] Sitagliptin Phosphate (Januvia) 50 mg PO BID [facility] Physical Exam - GI/Abdominal Exam Additional comments: soft, very mildly tender, ND, BS+, no rebound, no guarding, well healed scars from prior cholecystectomy Results - Vital Signs Recent Vital Signs: Last Vital Signs Temp 98.1 F 10/31/18 08:45 Pulse 54 L 10/31/18 08:45 Resp 18 10/31/18 08:45 BP 111/51 L 10/31/18 08:45 Pulse Ox 96 10/31/18 08:45 - Labs Result Diagrams: 10/31/18 01:33 10/31/18 01:33 Labs: Laboratory Results - last 24 hr 10/31/18 10/31/18 10/31/18 01:33 01:33 05:55 WBC 8.9 RBC 2.79 L Hgb 9.1 L Hct 25.9 L MCV 92.8 D MCH 32.7 H MCHC 35.3 RDW 19.0 H Plt Count 282 MPV 9.0 Neut % (Auto) 49.5 L Lymph % (Auto) 40.7 H Josephine % (Auto) 7.2 Eos % (Auto) 1.8 Baso % (Auto) 0.8 Neut # (Auto) 4.4 Lymph # (Auto) 3.6 Josephine # (Auto) 0.6 Eos # (Auto) 0.2 Baso # (Auto) 0.1 Sodium 139 Potassium 4.3 Chloride 108 H Carbon Dioxide 31 H Anion Gap 4 L BUN 14 Creatinine 0.9 Est GFR ( Amer) > 60 Est GFR (Non-Af Amer) > 60 Random Glucose 96 Lactic Acid 0.6 L Calcium 9.8 Total Bilirubin 3.4 H AST 1389 H ALT 341 H D Alkaline Phosphatase 552 H D Total Protein 8.8 H Albumin 3.3 L Globulin 5.5 H Albumin/Globulin Ratio 0.6 L Lipase 135 - Imaging and Cardiology CT scan - abdomen Status: Image reviewed by me, Report reviewed by me Assessment & Plan - Assessment and Plan (Free Text) Plan: - [facility] consultation to evaluate liver findings - Repeat labs in am - Will follow
--- NOTE | 2018-10-31 08:04 | CT ---
Date of service: 10/31/2018 PROCEDURE: CT Abdomen and Pelvis with contrast HISTORY: RUQ pain COMPARISON: 03/25/2017 TECHNIQUE: Contrast dose: Radiation dose: Total exam DLP = 258.62 mGy-cm. This CT exam was performed using one or more of the following dose reduction techniques: Automated exposure control, adjustment of the mA and/or kV according to patient size, and/or use of iterative reconstruction technique. FINDINGS: LOWER THORAX: Bibasilar infiltrates. Cardiomegaly. Small hiatal hernia. LIVER: Wedge-shaped hip hypodense hepatic infiltration of the right hepatic lobe measuring roughly 7.0 x 4.0 centimeters. Fatty infiltration versus neoplastic pathology. Irregular hepatic contour suggestive of chronic parenchymal liver disease. GALLBLADDER AND BILE DUCTS: Cholecystectomy with recurrent choledocholithiasis at the most distal aspect of the common bile duct measuring 5 millimeters. Moderate dilatation of the extrahepatic biliary tree. PANCREAS: Unremarkable. No gross lesion or ductal dilatation. SPLEEN: Absent. ADRENALS: Unremarkable. No mass. KIDNEYS AND URETERS: Unremarkable. No hydronephrosis. No solid mass. VASCULATURE: Unremarkable. No aortic aneurysm. No aortic atherosclerotic calcification or mural plaque present. BOWEL: Colonic diverticulosis. APPENDIX: Normal appendix. PERITONEUM: Unremarkable. No free fluid. No free air. LYMPH NODES: Unremarkable. No enlarged lymph nodes. BLADDER: Unremarkable. REPRODUCTIVE: Unremarkable. BONES: Diffuse osteopenia. OTHER FINDINGS: Gluteal panniculitis. IMPRESSION: Cholecystectomy with recurrent choledocholithiasis at the most distal aspect of the common bile duct measuring 5 millimeters. Moderate dilatation of the extrahepatic biliary tree. Wedge-shaped hip hypodense hepatic infiltration of the right hepatic lobe measuring roughly 7.0 x 4.0 centimeters. Fatty infiltration versus neoplastic pathology.
[2018-10-31] MEDS ORDERED: Enoxaparin 40 mg Syringe SC SCH (09:00)
[2018-10-31] MEDS ORDERED: Piperacillin/Tazobact 3.375 GM in Sodium Chloride 0.9% 100 ML IVPB SCH (09:00)
--- NOTE | 2018-10-31 09:06 | US ---
Date of service: 10/31/2018 HISTORY: RUQ pain COMPARISON: None. TECHNIQUE: Sonographic evaluation of the right upper quadrant of the abdomen. FINDINGS: LIVER: Measures cm in length. Normal echogenicity of the liver parenchyma. No mass. No intrahepatic bile duct dilatation. GALLBLADDER: Cholecystectomy. COMMON BILE DUCT: Measures mm. No stones. No dilatation. PANCREAS: Unremarkable as visualized. No mass. No ductal dilatation. RIGHT KIDNEY: Measures cm in length. Normal echogenicity. No calculus, mass, or hydronephrosis. AORTA: No aneurysmal dilatation. IVC: Unremarkable. OTHER FINDINGS: None . IMPRESSION: Cholecystectomy.
[2018-10-31] MEDS: Piperacillin/Tazobact 3.375 GM in Sodium Chloride 0.9% 100 ML IVPB SCH ×4 (12:02→20:20)
[2018-10-31] MEDS: Sodium Chloride 0.9% 1,000 ML IV SCH ×2 (12:03→18:03)
--- NOTE | 2018-10-31 15:23 | CP.PCM.CON ---
History of Present Illness - History of Present Illness History of Present Illness: Podiatry - Dr. Andrade 73 year old female patient seen and evaluated at bedside for bilateral ankle wounds. Patient states she has had the wounds for approximately 3 months, and has been seeing Dr. Filemon Gan at [place] for treatment. Patient relates that she recently had a surgical wound debridement with graft application last Thursday, and is scheduled to follow up with him later this week for continued care. At present, patient reports constant, moderate pain to both wounds, which she experiences with and without pressure. Patient admits to abdominal pain and recent chills, denies n/v/f/d/sob/anderson/cp. Offers no other pedal complaints. PMHx: DM, HTN, HLD, HIV, hx choledocholithiasis, brain aneurysm PSH: b/l hip replacement, ERCP, cholecystectomy, brain aneurysm clippin SH:denies ETOH/tobacco/illicit drug use All: NKDA Review of Systems - Review of Systems All systems: reviewed and no additional remarkable complaints except (as per HPI) Past Patient History - Infectious Disease Hx of Infectious Diseases: None - Past Medical History & Family History Past Medical History?: Yes - Past Social History Smoking Status: Never Smoked - CARDIAC Hx Hypertension: Yes Hx Peripheral Vascular Disease: Yes - PULMONARY Hx Respiratory Disorders: No - NEUROLOGICAL Hx Neurological Disorder: No Other/Comment: Brain aneurys with surgery and clips - HEENT Other/Comment: Mannie hearing aids - RENAL Hx Chronic Kidney Disease: No - ENDOCRINE/METABOLIC Hx Diabetes Mellitus Type 2: Yes Hx Hypothyroidism: Yes - HEMATOLOGICAL/ONCOLOGICAL Hx Human Immunodeficiency Virus (HIV): Yes - MUSCULOSKELETAL/RHEUMATOLOGICAL Hx Falls: No - GASTROINTESTINAL Hx Gastrointestinal Disorders: No - GENITOURINARY/GYNECOLOGICAL Hx Genitourinary Disorders: No - PSYCHIATRIC Hx Psychophysiologic Disorder: No Hx Substance Use: No - SURGICAL HISTORY Hx Appendectomy: Yes Hx Cholecystectomy: Yes Hx Joint Replacement: Yes (Mannie hip) Other/Comment: ERCP - ANESTHESIA Hx Anesthesia: Yes Hx Anesthesia Reactions: No Hx Malignant Hyperthermia: No Meds Allergies/Adverse Reactions: Allergies Allergy/AdvReac Type Severity Reaction Status Date / Time No Known Allergies Allergy Verified 10/31/18 01:35 - Medications Medications: Current Medications Alendronate Sodium (Fosamax) 70 mg PO DAILY [facility] Escitalopram Oxalate (Lexapro) 10 mg PO DAILY [facility] Home Med (Bictegrav/Emtricit/Tenofov Ala [Biktarvy 50-200-25 Mg Tablet]) 1 tab PO DAILY [facility] Hydromorphone HCl (Dilaudid) 1 mg IVP Q4 PRN PRN Reason: Pain, severe (8-10) Sodium Chloride (Sodium Chloride 0.9%) 1,000 mls @ 125 mls/hr IV .Q8H [facility] Stop: 11/01/18 08:06 Last Admin: 10/31/18 12:03 Dose: 125 mls/hr Piperacillin Sod/Tazobactam (Sod 3.375 gm/ Sodium Chloride) 100 mls @ 100 mls/hr IVPB Q8@0500,1300,2100 [facility]; Protocol Last Admin: 10/31/18 13:47 Dose: Not Given Insulin Human Regular (Humulin R) 0 units SC ACHS [facility]; Protocol Metformin HCl (Glucophage) 1,000 mg PO BID [facility] Naproxen (Naproxen) 500 mg PO BID [facility] Ondansetron HCl (Zofran Inj) 4 mg IVP Q4 PRN PRN Reason: Nausea/Vomiting Oxybutynin Chloride (Ditropan Tab) 5 mg PO BID [facility] Pravastatin Sodium (Pravachol) 20 mg PO DAILY [facility] Sitagliptin Phosphate (Januvia) 50 mg PO BID [facility] Physical Exam - Constitutional Appears: Non-toxic, No Acute Distress - Extremities Exam Additional comments: Bilateral lower extremity: VASC: DP and PT pulses palpable 2/4 b/l. CFT <3 seconds to all digits. Temperature gradient warm to warm, with no significant increase in warmth periwound. No edema appreciated. NEURO: Gross sensation intact bilaterally. DERM: LLE: Full thickness ulceration noted to lateral malleolus measuring approximately 1.5 x 2.0 x 0.1 cm - ulcer is noted to have a mixed fibrogranular base with minimal erythema periwound; minimal serosanuingous drainage; no purulence; no fluctuance; no undermining; no tunneling; no clinical suspicion of active infection. Atrophic skin changes circumfirentially around ankle. RLE: Full thickness ulceration noted to lateral malleolus measuring approximately 1.9 x 4.5 x 0.1 cm - ulcer is noted to have a mixed fibrogranular base with minimal erythema periwound; minimal serosanguinous drainage; no purulence; no fluctuance; no undermining; no tunneling; no clinical suspicion of active infection. Atrophic skin changes circumfirentially around ankle. ORTHO: Pain on palpation noted to wounds b/l. Muscle strength 5/5 for all dorsiflexors, plantarflexors, inverters, and everters b/l. - Neurological Exam Neurological exam: Alert, Oriented x3 - Psychiatric Exam Psychiatric exam: Normal Affect, Normal Mood Results - Vital Signs Recent Vital Signs: Last Vital Signs Temp 98.1 F 10/31/18 08:45 Pulse 54 L 10/31/18 08:45 Resp 18 10/31/18 08:45 BP 111/51 L 10/31/18 08:45 Pulse Ox 96 10/31/18 08:45 - Labs Result Diagrams: 10/31/18 01:33 10/31/18 01:33 Labs: Laboratory Results - last 24 hr 10/31/18 10/31/18 10/31/18 01:33 01:33 05:55 WBC 8.9 RBC 2.79 L Hgb 9.1 L Hct 25.9 L MCV 92.8 D MCH 32.7 H MCHC 35.3 RDW 19.0 H Plt Count 282 MPV 9.0 Neut % (Auto) 49.5 L Lymph % (Auto) 40.7 H Harney % (Auto) 7.2 Eos % (Auto) 1.8 Baso % (Auto) 0.8 Neut # (Auto) 4.4 Lymph # (Auto) 3.6 Harney # (Auto) 0.6 Eos # (Auto) 0.2 Baso # (Auto) 0.1 Sodium 139 Potassium 4.3 Chloride 108 H Carbon Dioxide 31 H Anion Gap 4 L BUN 14 Creatinine 0.9 Est GFR ( Amer) > 60 Est GFR (Non-Af Amer) > 60 Random Glucose 96 Lactic Acid 0.6 L Calcium 9.8 Total Bilirubin 3.4 H AST 1389 H ALT 341 H D Alkaline Phosphatase 552 H D Total Protein 8.8 H Albumin 3.3 L Globulin 5.5 H Albumin/Globulin Ratio 0.6 L Lipase 135 Assessment & Plan - Assessment and Plan (Free Text) Assessment: 73F with bilateral ankle ulcerations, non-infected Plan: Patient seen and evaluated Discussed with attending, Dr. Andrade VSS, WBC 8.9 WNL No clinical suspicion of active infection, will continue to monitor Local wound care provided - xeroform, DSD b/l Activity: WBAT to bilateral LE Pain control per primary Podiatry will continue to follow Thank you for the consult
[2018-10-31] MEDS: Insulin Regular 100 units/ml SC SCH ×2 (17:33→22:00)
[2018-10-31] MEDS: Patient's Own Med (Bictegrav/Emtricit/Tenofov Ala [Biktarvy 50-200-25 Mg Tablet] 1 TAB) PO SCH (18:02)
--- NOTE | 2018-10-31 22:15 | CARD ---
APPROVED REPORT Date of service: 10/31/2018 EKG Measurement Heart [id number] <Conclusion> Normal sinus rhythm Nonspecific ST abnormality Abnormal ECG
[2018-10-31] MEDS: Dextrose 5%/0.45% NS 1,000 ML IV SCH (22:30)
--- NOTE | 2018-11-01 02:56 | HP ---
CHIEF COMPLAINT: Right-sided abdominal pain. HISTORY OF PRESENT ILLNESS: This is 73-year-old female, known case of diabetes, hypertension, elevated cholesterol, hypothyroidism, HIV positive, who has a right upper quadrant pain for a few days, which got worse. The patient was brought to the emergency room and was admitted for further management. REVIEW OF SYSTEMS: Positive for abdominal pain, nausea, and vomiting. Review of systems otherwise is negative for headache, dizziness, syncope, loss of consciousness, chest pain, shortness of breath, nausea, diarrhea, constipation, any new joint or extremity pain. Review of systems of all other organ system is unremarkable. The patient had similar episodes before also and had stone retrieval and gallbladder surgery in the past. Review of systems of all other organ system is unremarkable. PAST MEDICAL HISTORY: Significant for diabetes, hypertension, elevated cholesterol, hypothyroidism, HIV positive. PAST SURGICAL HISTORY: Remarkable for gallbladder surgery , stone retrieval and appendectomy. PERSONAL HISTORY: The patient is a nonsmoker, nondrinker. No substance abuse. MEDICATIONS: The patient is on multiple medications including her HIV medications, Synthroid, Antivert, Mobic, pravastatin, Janumet, tramadol, Keflex, meclizine, and Reglan. ALLERGIES: THE PATIENT IS NOT ALLERGIC TO ANY MEDICATIONS. FAMILY HISTORY: Noncontributory. PHYSICAL EXAMINATION: GENERAL: Well developed, well nourished 73-year-old female, in no acute distress. VITAL SIGNS: Temperature 97.7, pulse 68, respirations 18, blood pressure 126/63, saturation 97%. HEENT: Pupils reacting to light. No JVD. No thyromegaly. No lymphadenopathy. No nystagmus. Normocephalic, atraumatic skull. HEART: S1 and S2 normal and regular. No significant murmur, gallop, or rub is heard. LUNGS: Shows good bilateral air exchange. No rales or rhonchi. ABDOMEN: There is minimal right upper quadrant tenderness and the patient did receive pain medication. Abdomen otherwise is soft. No organomegaly. No fluids. No sign of acute abdomen. No guarding. No rigidity. No rebound. Bowel sounds are present and normal. EXTREMITY: No edema. No calf swelling. No tenderness. No acute ischemia. WHITE LEAD GRINDER: The patient is alert, awake and oriented x3. There is no sign of any acute gross focal motor or sensory neurological deficit. DIAGNOSTIC DATA: Available diagnostic data reviewed. CAT scan showed bilateral segmental atelectasis of the lungs, wedge-shaped hyperdense hepatic infiltration, irregular hepatic contour, choledocholithiasis. WBC 8.9, hemoglobin 9.1, hematocrit 25.9, platelets 282. Sodium 139, potassium 4.3, chloride 108, bicarb 31, BUN 14, creatinine 0.9, AST is 1389, ALT is 341, alkaline phosphatase is 552, , lactic acid is 0.6. Abdominal ultrasound also confirms choledocholithiasis. ADMITTING IMPRESSION: 1. Choledocholithiasis. 2. Transaminitis. 3. Type 2 diabetes. 4. Hypertension. 5. Elevated cholesterol. 6. Hypothyroidism. 7. Human immunodeficiency virus positive. PLAN: As ordered. Case and plan discussed with the patient. Mina Reyes MD
[2018-11-01] MEDS: Piperacillin/Tazobact 3.375 GM in Sodium Chloride 0.9% 100 ML IVPB SCH ×3 (04:07→20:41)
[2018-11-01] MEDS ORDERED: Dextrose 50% SYRINGE Inj (50 ml) IV PRN (05:58)
[2018-11-01] MEDS ORDERED: Glucagon Recombinant 1 mg Inj IM PRN (05:58)
[2018-11-01] MEDS: ALENDRONATE 70 MG TAB PO SCH ×3 (06:07→09:58)
--- NOTE | 2018-11-01 06:25 | CP.PCM.PN ---
Subjective - Date & Time of Evaluation Date of Evaluation: 11/01/18 Time of Evaluation: 06:22 - Subjective Subjective: Podiatry progress note for Dr. Andrade 73 y/o female patient was seen and evaluated at bedside. Patient has bilateral ankle wounds and is being treated by Psychodramatist Dr. Gan at [place]. Patient states she last saw him on Thursday, and had an appointment coming up this Thursday. Patient relates that she recently had a surgical wound debridement with graft application last Thursday. Patient reports constant, moderate pain to both wounds. Patient admits to abdominal pain and recent chills, denies N/V/F/SOB/CP. Patient offers no other pedal complaints. Objective - Vital Signs/Intake and Output Vital Signs (last 24 hours): Temp Pulse Resp BP Pulse Ox 97.3 F L 53 L 18 124/62 98 10/31/18 23:58 10/31/18 23:58 10/31/18 23:58 10/31/18 23:58 10/31/18 23:58 - Medications Medications: Current Medications Alendronate Sodium (Fosamax) 70 mg PO MON [facility] Last Admin: 11/01/18 06:07 Dose: Not Given Dextrose (Dextrose 50% Inj) 0 ml IV STAT PRN; Protocol PRN Reason: Hypoglycemia Protocol Last Admin: 11/01/18 06:14 Dose: 50 ml Dextrose (Glutose 15) 0 gm PO ONCE PRN; Protocol PRN Reason: Hypoglycemia Protocol Escitalopram Oxalate (Lexapro) 10 mg PO DAILY [facility] Glucagon (Glucagen Diagnostic Kit) 0 mg IM STAT PRN; Protocol PRN Reason: Hypoglycemia Protocol Home Med (Bictegrav/Emtricit/Tenofov Ala [Biktarvy 50-200-25 Mg Tablet]) 1 tab PO DAILY [facility] Last Admin: 10/31/18 18:02 Dose: 1 tab Hydromorphone HCl (Dilaudid) 1 mg IVP Q4 PRN PRN Reason: Pain, severe (8-10) Piperacillin Sod/Tazobactam (Sod 3.375 gm/ Sodium Chloride) 100 mls @ 100 mls/hr IVPB Q8@0500,1300,2100 [facility]; Protocol Last Admin: 11/01/18 04:07 Dose: 100 mls/hr Dextrose/Sodium Chloride (Dextrose 5%/0.45% Ns 1000 Ml) 1,000 mls @ 100 mls/hr IV .Q10H [facility] Stop: 11/02/18 22:28 Last Admin: 10/31/18 22:30 Dose: 100 mls/hr Insulin Human Regular (Humulin R) 0 units SC ACHS [facility]; Protocol Last Admin: 10/31/18 22:00 Dose: Not Given Metformin HCl (Glucophage) 1,000 mg PO BID [facility] Last Admin: 10/31/18 17:33 Dose: Not Given Naproxen (Naproxen) 500 mg PO BID [facility] Ondansetron HCl (Zofran Inj) 4 mg IVP Q4 PRN PRN Reason: Nausea/Vomiting Oxybutynin Chloride (Ditropan Tab) 5 mg PO BID [facility] Last Admin: 10/31/18 18:03 Dose: 5 mg Pravastatin Sodium (Pravachol) 20 mg PO DAILY [facility] Sitagliptin Phosphate (Januvia) 50 mg PO BID [facility] Last Admin: 10/31/18 17:33 Dose: Not Given - Labs Labs: 10/31/18 01:33 10/31/18 01:33 - Constitutional Appears: Well, Non-toxic, No Acute Distress - Head Exam Head Exam: ATRAUMATIC, NORMOCEPHALIC - Extremities Exam Additional comments: Bilateral lower extremity: VASC: DP and PT pulses palpable 2/4 b/l. CFT <3 seconds to all digits. Temperature gradient warm to warm, with no significant increase in warmth periwound. No edema appreciated. NEURO: Gross sensation intact bilaterally. DERM: LLE: Full thickness ulceration noted to lateral malleolus measuring approximately 1.5 x 2.0 x 0.1 cm - ulcer is noted to have a mixed fibrogranular base with minimal erythema periwound; no drainage; no purulence; no fluctuance; no undermining; no tunneling; no clinical suspicion of active infection. Atrophic skin changes circumfirentially around ankle RLE: Full thickness ulceration noted to lateral malleolus measuring approximately 1.9 x 4.5 x 0.1 cm - ulcer is noted to have a mixed fibrogranular base with minimal erythema periwound; no drainage; no purulence; no fluctuance; no undermining; no tunneling; no clinical suspicion of active infection. At rophic skin changes circumfirentially around ankle ORTHO: Pain on palpation noted to wounds b/l. Muscle strength 5/5 for all dorsiflexors, plantarflexors, inverters, and everters b/l. - Neurological Exam Neurological Exam: Alert, Awake, Oriented x3 - Psychiatric Exam Psychiatric exam: Normal Affect, Normal Mood Assessment and Plan - Assessment and Plan (Free Text) Assessment: 73 y/o female with bilateral ankle ulcerations, non-infected Plan: Patient seen and evaluated Discussed with attending, Dr. Andrade Chart, labs and vitals were reviewed- afebrile, absent leukocytosis No clinical suspicion of active infection, will continue to monitor Local wound care provided - xeroform, DSD b/l Activity: WBAT to bilateral LE Pain control per primary Podiatry will continue to follow while in house
[2018-11-01 06:28] LABS: HEMOGLOBIN 9.3 g/dL (12.0-16.0); MEAN CELL VOLUME 93.6 fl (81.0-99.0); MEAN CORPUSCULAR HEMOGLOBIN 31.8 pg (27.0-31.0); RBC 2.92 Mil/uL (3.80-5.20); RED CELL DISTRIBUTION WIDTH 19.8 % (11.5-14.5)
[2018-11-01 06:34] LABS: INR 1.1; PROTHROMBIN TIME 12.8 Seconds (9.8-13.1)
[2018-11-01 06:36] LABS: PARTIAL THROMBOPLASTIN TIME 29.3 Seconds (25.6-37.1)
[2018-11-01 06:47] LABS: LDL CHOLESTEROL 84 mg/dL (0-129)
[2018-11-01 06:53] LABS: T4 7.31 ug/dl (5.5-11.0)
[2018-11-01] MEDS: Insulin Regular 100 units/ml SC SCH ×4 (06:54→21:53)
[2018-11-01 07:04] LABS: ALB/GLOB RATIO 0.6 (1.0-2.1); ALBUMIN 2.9 g/dL (3.5-5.0); ALT/SGPT 228 U/L (9-52); AST/SGOT 452 U/L (14-36); BLOOD UREA NITROGEN 9 mg/dl (7-17); CALCIUM 9.1 mg/dL (8.4-10.2); GFR NON-AFRICAN AMERICAN > 60; HDL CHOLESTEROL 34 MG/DL (30-70)
[2018-11-01 07:07] LABS: T3 0.606 nmol/L (1.49-2.60)
[2018-11-01 07:19] LABS: SQUAMOUS EPITHIAL < 1 /hpf (0-5); URINE BILIRUBIN NEGATIVE (NEGATIVE); URINE BLOOD NEGATIVE (NEGATIVE); URINE CLARITY CLEAR (Clear); URINE COLOR YELLOW (YELLOW); URINE GLUCOSE (UA) NEG (Normal); URINE LEUKOCYTE ESTERASE NEG Leu/uL (Negative); URINE PROTEIN NEGATIVE (NEGATIVE)
--- NOTE | 2018-11-01 09:34 | CP.PCM.PN ---
Subjective - Date & Time of Evaluation Date of Evaluation: 11/01/18 Time of Evaluation: 09:31 - Subjective Subjective: SURGERY NOTE FOR DR. CAMPOS 73F seen and examined at bedside. No acute events overnight. No nausea or vomiting. Patient continues to have RUQ tenderness. No fevers or chills. Objective - Vital Signs/Intake and Output Vital Signs (last 24 hours): Temp Pulse Resp BP Pulse Ox 98.0 F 58 L 20 113/65 98 11/01/18 08:13 11/01/18 08:13 11/01/18 08:13 11/01/18 08:13 11/01/18 08:13 - Medications Medications: Current Medications Alendronate Sodium (Fosamax) 70 mg PO MON [facility] Last Admin: 11/01/18 06:07 Dose: Not Given Dextrose (Dextrose 50% Inj) 0 ml IV STAT PRN; Protocol PRN Reason: Hypoglycemia Protocol Last Admin: 11/01/18 06:14 Dose: 50 ml Dextrose (Glutose 15) 0 gm PO ONCE PRN; Protocol PRN Reason: Hypoglycemia Protocol Escitalopram Oxalate (Lexapro) 10 mg PO DAILY [facility] Glucagon (Glucagen Diagnostic Kit) 0 mg IM STAT PRN; Protocol PRN Reason: Hypoglycemia Protocol Home Med (Bictegrav/Emtricit/Tenofov Ala [Biktarvy 50-200-25 Mg Tablet]) 1 tab PO DAILY [facility] Last Admin: 10/31/18 18:02 Dose: 1 tab Hydromorphone HCl (Dilaudid) 1 mg IVP Q4 PRN PRN Reason: Pain, severe (8-10) Piperacillin Sod/Tazobactam (Sod 3.375 gm/ Sodium Chloride) 100 mls @ 100 mls/hr IVPB Q8@0500,1300,2100 [facility]; Protocol Last Admin: 11/01/18 04:07 Dose: 100 mls/hr Dextrose/Sodium Chloride (Dextrose 5%/0.45% Ns 1000 Ml) 1,000 mls @ 100 mls/hr IV .Q10H [facility] Stop: 11/02/18 22:28 Last Admin: 10/31/18 22:30 Dose: 100 mls/hr Insulin Human Regular (Humulin R) 0 units SC ACHS [facility]; Protocol Last Admin: 11/01/18 06:54 Dose: Not Given Metformin HCl (Glucophage) 1,000 mg PO BID [facility] Last Admin: 10/31/18 17:33 Dose: Not Given Naproxen (Naproxen) 500 mg PO BID [facility] Ondansetron HCl (Zofran Inj) 4 mg IVP Q4 PRN PRN Reason: Nausea/Vomiting Oxybutynin Chloride (Ditropan Tab) 5 mg PO BID [facility] Last Admin: 10/31/18 18:03 Dose: 5 mg Pravastatin Sodium (Pravachol) 20 mg PO DAILY [facility] Sitagliptin Phosphate (Januvia) 50 mg PO BID [facility] Last Admin: 10/31/18 17:33 Dose: Not Given - Labs Labs: 11/01/18 05:30 11/01/18 05:30 PT 12.8 Seconds (9.8-13.1) 11/01/18 05:30 INR 1.1 11/01/18 05:30 APTT 29.3 Seconds (25.6-37.1) 11/01/18 05:30 - Constitutional Appears: Non-toxic, No Acute Distress - Respiratory Exam Respiratory Exam: Clear to Ausculation Bilateral, NORMAL BREATHING PATTERN - Cardiovascular Exam Cardiovascular Exam: REGULAR RHYTHM, +S1, +S2 - GI/Abdominal Exam GI & Abdominal Exam: Soft, Tenderness. absent: Distended, Firm, Guarding, Rigid, Rebound - Extremities Exam Extremities Exam: absent: Pedal Edema, Tenderness - Neurological Exam Neurological Exam: Alert, Awake Assessment and Plan - Assessment and Plan (Free Text) Assessment: 73F with cholelithiasis. LFTs trending downwards. Distant history of cholecystectomy. Plan: - Recommend GI for ERCP - Recommend IR for possible liver biopsy - No surgical intervention at this time Further recs discuss with Dr. Jacob Kirby, PGY3
[2018-11-01] MEDS: Patient's Own Med (Bictegrav/Emtricit/Tenofov Ala [Biktarvy 50-200-25 Mg Tablet] 1 TAB) PO SCH ×3 (09:39→13:47)
--- NOTE | 2018-11-01 09:39 | CP.PCM.PN ---
Subjective - Date & Time of Evaluation Date of Evaluation: 11/01/18 Time of Evaluation: 09:36 - Subjective Subjective: General Surgery Pt seen and examined this AM. She reports feeling a lot better. Denies having abdominal pain today. (-) N/V. Pt is NPO today. Labs and vitals noted. T bili improved to 1.5 from 3.4 and rest of LFTs trending down PE Gen: Pt laying in bed in NAD Skin: warm and dry Cardio: s1s2 RRR Lungs: CTA bilaterally Abd: Soft NTND Extr: (+) bilateral ankles in clean dressings. (-) calf tenderness bilaterally A/P Choledocolithiasis, Liver Lesion IR consult F/U GI recs Keep NPO for now Continue IVF No surgical intervention at this time. Objective - Vital Signs/Intake and Output Vital Signs (last 24 hours): Temp Pulse Resp BP Pulse Ox 98.0 F 58 L 20 113/65 98 11/01/18 08:13 11/01/18 08:13 11/01/18 08:13 11/01/18 08:13 11/01/18 08:13 - Medications Medications: Current Medications Alendronate Sodium (Fosamax) 70 mg PO MON [facility] Last Admin: 11/01/18 06:07 Dose: Not Given Dextrose (Dextrose 50% Inj) 0 ml IV STAT PRN; Protocol PRN Reason: Hypoglycemia Protocol Last Admin: 11/01/18 06:14 Dose: 50 ml Dextrose (Glutose 15) 0 gm PO ONCE PRN; Protocol PRN Reason: Hypoglycemia Protocol Escitalopram Oxalate (Lexapro) 10 mg PO DAILY [facility] Glucagon (Glucagen Diagnostic Kit) 0 mg IM STAT PRN; Protocol PRN Reason: Hypoglycemia Protocol Home Med (Bictegrav/Emtricit/Tenofov Ala [Biktarvy 50-200-25 Mg Tablet]) 1 tab PO DAILY [facility] Last Admin: 10/31/18 18:02 Dose: 1 tab Hydromorphone HCl (Dilaudid) 1 mg IVP Q4 PRN PRN Reason: Pain, severe (8-10) Piperacillin Sod/Tazobactam (Sod 3.375 gm/ Sodium Chloride) 100 mls @ 100 mls/hr IVPB Q8@0500,1300,2100 [facility]; Protocol Last Admin: 11/01/18 04:07 Dose: 100 mls/hr Dextrose/Sodium Chloride (Dextrose 5%/0.45% Ns 1000 Ml) 1,000 mls @ 100 mls/hr IV .Q10H [facility] Stop: 11/02/18 22:28 Last Admin: 10/31/18 22:30 Dose: 100 mls/hr Insulin Human Regular (Humulin R) 0 units SC ACHS [facility]; Protocol Last Admin: 11/01/18 06:54 Dose: Not Given Metformin HCl (Glucophage) 1,000 mg PO BID [facility] Last Admin: 10/31/18 17:33 Dose: Not Given Naproxen (Naproxen) 500 mg PO BID [facility] Ondansetron HCl (Zofran Inj) 4 mg IVP Q4 PRN PRN Reason: Nausea/Vomiting Oxybutynin Chloride (Ditropan Tab) 5 mg PO BID [facility] Last Admin: 10/31/18 18:03 Dose: 5 mg Pravastatin Sodium (Pravachol) 20 mg PO DAILY [facility] Sitagliptin Phosphate (Januvia) 50 mg PO BID [facility] Last Admin: 10/31/18 17:33 Dose: Not Given - Labs Labs: 11/01/18 05:30 11/01/18 05:30 PT 12.8 Seconds (9.8-13.1) 11/01/18 05:30 INR 1.1 11/01/18 05:30 APTT 29.3 Seconds (25.6-37.1) 11/01/18 05:30
[2018-11-01] MEDS: Naproxen 500 MG TAB PO SCH ×3 (09:42→16:53)
[2018-11-01] MEDS: Pravastatin Sodium 20 MG TAB PO SCH ×2 (09:43→13:12)
[2018-11-01] MEDS ORDERED: Iohexol 240 (50 ml) PO ONE (14:25)
[2018-11-01] MEDS ORDERED: Sodium Chloride 0.9% 50 ML IV ONE (16:43)
[2018-11-01] MEDS ORDERED: Iohexol 300 100 ML IJ ONE (16:43)
--- NOTE | 2018-11-01 19:03 | CT ---
Date of service: 11/01/2018 PROCEDURE: CT Abdomen with and without intravenous contrast HISTORY: abdominal pain COMPARISON: October 31, 2018. CT abdomen and pelvis TECHNIQUE: Axial images of the abdomen from lung bases to iliac crest with and without intravenous contrast enhancement. Coronal and sagittal reformats generated. Oral contrast also administered. Intravenous contrast Dose: 90 cc Omnipaque 300 Radiation dose: Total exam DLP = 531.55 mGy-cm. This CT exam was performed using one or more of the following dose reduction techniques: Automated exposure control, adjustment of the mA and/or kV according to patient size, and/or use of iterative reconstruction technique. FINDINGS: LOWER THORAX: Atelectasis at the lung bases. Small hiatal hernia. LIVER: Unremarkable. No gross lesion or ductal dilatation. Findings on the three-phase study clear the liver of any focal or geographic abnormality. The wedge-shaped defects identified on the recent CT scan cannot be duplicated and the overall appearance which suggests this is a product of the particular phase of the contrast enhancement on the prior study. Patent portal venous system is satisfactorily visualized without evidence portal vein thrombosis or the stigmata of portal hypertension. GALLBLADDER AND BILE DUCTS: Status post cholecystectomy. Questionable stone in the distal common duct 4 mm. Dilated common duct and intrahepatic biliary radicles. PANCREAS: Unremarkable. No gross lesion or ductal dilatation. SPLEEN: Prior splenectomy. ADRENALS: Unremarkable. No mass. KIDNEYS AND URETERS: Unremarkable. No hydronephrosis. No solid mass. VASCULATURE: Unremarkable. No aortic aneurysm. No aortic atherosclerotic calcification or mural plaque present. BOWEL: Unremarkable. No obstruction. No gross mural thickening. APPENDIX: No abnormalities to suggest acute appendicitis. No right lower quadrant inflammatory processes identified. PERITONEUM: Unremarkable. No free fluid. No free air. LYMPH NODES: Unremarkable. No enlarged lymph nodes. BLADDER: Unremarkable. REPRODUCTIVE: Unremarkable. BONES: Mottled appearance to visualized osseous structures including lytic and sclerotic lesions in the thoracolumbar spine and sacrum. Similar findings identified body of the sacrum and iliac bones. OTHER FINDINGS: Edematous changes the gluteal region and innumerable injection granulomas noted. IMPRESSION: No focal abnormalities in the liver. No masses or other findings of consequence. Dilated intrahepatic biliary radicles, common duct and likely stone or debris within the distal common duct. Mottled appearance to visible osseous structures with lytic and sclerotic abnormalities.
[2018-11-01] MEDS: Dextrose 5%/0.45% NS 1,000 ML IV SCH (20:40)
[2018-11-02] MEDS: Piperacillin/Tazobact 3.375 GM in Sodium Chloride 0.9% 100 ML IVPB SCH ×3 (04:25→21:09)
[2018-11-02 06:18] LABS: HEMOGLOBIN 9.7 g/dL (12.0-16.0); MEAN CELL VOLUME 93.9 fl (81.0-99.0); MEAN CORPUSCULAR HEMOGLOBIN 32.5 pg (27.0-31.0); MEAN CORPUSCULAR HGB CONC 34.6 g/dL (33.0-37.0); RED CELL DISTRIBUTION WIDTH 19.2 % (11.5-14.5); WHITE BLOOD COUNT 6.8 K/uL (4.8-10.8)
[2018-11-02 06:47] LABS: ALB/GLOB RATIO 0.6 (1.0-2.1); ALT/SGPT 172 U/L (9-52); AST/SGOT 215 U/L (14-36); BLOOD UREA NITROGEN 5 mg/dl (7-17); CALCIUM 8.9 mg/dL (8.4-10.2); GFR NON-AFRICAN AMERICAN > 60
--- NOTE | 2018-11-02 09:33 | CP.PCM.PN ---
<AndrewDidierclaudia - Last Filed: 11/02/18 11:34> Subjective - Date & Time of Evaluation Date of Evaluation: 11/02/18 Time of Evaluation: 08:00 - Subjective Subjective: Pt seen and examined this am with Dr. Reyes. Reprots mild addominal pain. Otherwise no complaints. Plan for ERCP this am. Pt aware. Objective - Vital Signs/Intake and Output Vital Signs (last 24 hours): Temp Pulse Resp BP Pulse Ox 98.3 F 54 L 18 130/63 99 11/02/18 08:09 11/02/18 08:09 11/02/18 08:09 11/02/18 08:09 11/02/18 08:09 - Medications Medications: Current Medications Alendronate Sodium (Fosamax) 70 mg PO MON [facility] Last Admin: 11/01/18 09:58 Dose: Not Given Dextrose (Dextrose 50% Inj) 0 ml IV STAT PRN; Protocol PRN Reason: Hypoglycemia Protocol Last Admin: 11/01/18 06:14 Dose: 50 ml Dextrose (Glutose 15) 0 gm PO ONCE PRN; Protocol PRN Reason: Hypoglycemia Protocol Escitalopram Oxalate (Lexapro) 10 mg PO DAILY [facility] Last Admin: 11/01/18 13:48 Dose: 10 mg Glucagon (Glucagen Diagnostic Kit) 0 mg IM STAT PRN; Protocol PRN Reason: Hypoglycemia Protocol Home Med (Bictegrav/Emtricit/Tenofov Ala [Biktarvy 50-200-25 Mg Tablet]) 1 tab PO DAILY [facility] Last Admin: 11/01/18 13:47 Dose: 1 tab Hydromorphone HCl (Dilaudid) 1 mg IVP Q4 PRN PRN Reason: Pain, severe (8-10) Piperacillin Sod/Tazobactam (Sod 3.375 gm/ Sodium Chloride) 100 mls @ 100 mls/hr IVPB Q8@0500,1300,2100 [facility]; Protocol Last Admin: 11/02/18 04:25 Dose: 100 mls/hr Dextrose/Sodium Chloride (Dextrose 5%/0.45% Ns 1000 Ml) 1,000 mls @ 100 mls/hr IV .Q10H [facility] Stop: 11/02/18 22:28 Last Admin: 11/01/18 20:40 Dose: 100 mls/hr Insulin Human Regular (Humulin R) 0 units SC ACHS [facility]; Protocol Last Admin: 11/01/18 21:53 Dose: Not Given Metformin HCl (Glucophage) 1,000 mg PO BID [facility] Last Admin: 11/01/18 09:58 Dose: Not Given Naproxen (Naproxen) 500 mg PO BID [facility] Last Admin: 11/01/18 16:53 Dose: Not Given Ondansetron HCl (Zofran Inj) 4 mg IVP Q4 PRN PRN Reason: Nausea/Vomiting Oxybutynin Chloride (Ditropan Tab) 5 mg PO BID [facility] Last Admin: 11/01/18 16:56 Dose: Not Given Pravastatin Sodium (Pravachol) 20 mg PO DAILY [facility] Last Admin: 11/01/18 13:12 Dose: Not Given Sitagliptin Phosphate (Januvia) 50 mg PO BID [facility] Last Admin: 11/01/18 16:50 Dose: Not Given - Labs Labs: 11/02/18 05:30 11/02/18 05:30 PT 12.8 Seconds (9.8-13.1) 11/01/18 05:30 INR 1.1 11/01/18 05:30 APTT 29.3 Seconds (25.6-37.1) 11/01/18 05:30 - Constitutional Appears: No Acute Distress - Head Exam Head Exam: NORMAL INSPECTION - Eye Exam Eye Exam: Normal appearance - ENT Exam ENT Exam: Mucous Membranes Moist - Neck Exam Neck Exam: Full ROM - Respiratory Exam Respiratory Exam: Clear to Ausculation Bilateral. absent: Rales, Wheezes - Cardiovascular Exam Cardiovascular Exam: REGULAR RHYTHM, +S1, +S2. absent: Murmur - GI/Abdominal Exam GI & Abdominal Exam: Soft. absent: Tenderness - Neurological Exam Neurological Exam: Alert, Awake, Oriented x3 - Psychiatric Exam Psychiatric exam: Normal Mood - Skin Skin Exam: Normal Color Assessment and Plan - Assessment and Plan (Free Text) Assessment: Pt is a 73 y/o female with hx of Cholelithiasis and cholecystectomy who presented to [facility] with acute abdominal pain and admitted for Cholidocolithiasis in the distal CBD as noted on CT Scan. Plan for ERCP this am. Noted on Abdomen/pelvis CT to have hypodense lesion on liver, however not seen on Liver CT. Cholidocolithiasis - Plan for ERCP this am - Liver CT: dilated CBD and intrahepatic biliary tract w/ questionnable stones. No gross lesions in liver. - Transaminitis trending down; lipase normal - Pain controlled - GI and Surgery on board - C/W Zosyn - IVF, D5 BL foot ulcers - Podiatry on board - Wound Care DM -Metformin held due to multiple contrasted studies -C/W Junuvia -BS wnl HIV -C/W HAART -ID consulted, Mangia Diet NPO overnight DVT ppx -SCD's for now <Mina Reyes K - Last Filed: 11/03/18 18:46> Objective - Vital Signs/Intake and Output Vital Signs (last 24 hours): Temp Pulse Resp BP Pulse Ox 98 F 54 L 20 113/65 99 11/03/18 17:00 11/03/18 17:00 11/03/18 17:00 11/03/18 17:00 11/03/18 17:00 - Medications Medications: Current Medications Alendronate Sodium (Fosamax) 70 mg PO MON [facility] Last Admin: 11/01/18 09:58 Dose: Not Given Dextrose (Dextrose 50% Inj) 0 ml IV STAT PRN; Protocol PRN Reason: Hypoglycemia Protocol Last Admin: 11/01/18 06:14 Dose: 50 ml Dextrose (Glutose 15) 0 gm PO ONCE PRN; Protocol PRN Reason: Hypoglycemia Protocol Escitalopram Oxalate (Lexapro) 10 mg PO DAILY [facility] Last Admin: 11/03/18 08:50 Dose: 10 mg Glucagon (Glucagen Diagnostic Kit) 0 mg IM STAT PRN; Protocol PRN Reason: Hypoglycemia Protocol Home Med (Bictegrav/Emtricit/Tenofov Ala [Biktarvy 50-200-25 Mg Tablet]) 1 tab PO DAILY [facility] Last Admin: 11/03/18 08:48 Dose: 1 tab Piperacillin Sod/Tazobactam (Sod 3.375 gm/ Sodium Chloride) 100 mls @ 100 mls/hr IVPB Q8@0500,1300,2100 [facility]; Protocol Last Admin: 11/03/18 12:23 Dose: 100 mls/hr Insulin Human Regular (Humulin R) 0 units SC ACHS [facility]; Protocol Last Admin: 11/03/18 16:56 Dose: Not Given Lactobacillus Acidophilus (Bacid Acidophilus) 1 cap PO BID [facility] Last Admin: 11/03/18 16:56 Dose: 1 cap Metformin HCl (Glucophage) 1,000 mg PO BID [facility] Last Admin: 11/01/18 09:58 Dose: Not Given Naproxen (Naproxen) 500 mg PO BID [facility] Last Admin: 11/03/18 08:50 Dose: 500 mg Ondansetron HCl (Zofran Inj) 4 mg IVP Q4 PRN PRN Reason: Nausea/Vomiting Oxybutynin Chloride (Ditropan Tab) 5 mg PO BID [facility] Last Admin: 11/03/18 16:56 Dose: 5 mg Pravastatin Sodium (Pravachol) 20 mg PO DAILY [facility] Last Admin: 11/03/18 08:51 Dose: 20 mg Sitagliptin Phosphate (Januvia) 50 mg PO BID [facility] Last Admin: 11/03/18 16:56 Dose: 50 mg - Labs Labs: 11/03/18 05:40 11/03/18 05:40 PT 12.8 Seconds (9.8-13.1) 11/01/18 05:30 INR 1.1 11/01/18 05:30 APTT 29.3 Seconds (25.6-37.1) 11/01/18 05:30 Assessment and Plan - Assessment and Plan (Free Text) Assessment: Patient was personally seen and examined by me in rounds with residents. Available labs and diagnostic data reviewed. Case, Patient's condition and management plan discussed with residents in rounds. Agree with resident's progress note. Plan: As ordered.
--- NOTE | 2018-11-02 10:08 | CP.PCM.PN ---
Subjective - Date & Time of Evaluation Date of Evaluation: 11/02/18 Time of Evaluation: 10:07 - Subjective Subjective: SURGERY NOTE FOR DR. CAMPOS 73F seen and examined at bedside. Patient resting comfortably in bed, scheduled for an ERCP this AM. Objective - Vital Signs/Intake and Output Vital Signs (last 24 hours): Temp Pulse Resp BP Pulse Ox 98.3 F 54 L 18 130/63 99 11/02/18 08:09 11/02/18 08:09 11/02/18 08:09 11/02/18 08:09 11/02/18 08:09 - Medications Medications: Current Medications Alendronate Sodium (Fosamax) 70 mg PO MON [facility] Last Admin: 11/01/18 09:58 Dose: Not Given Dextrose (Dextrose 50% Inj) 0 ml IV STAT PRN; Protocol PRN Reason: Hypoglycemia Protocol Last Admin: 11/01/18 06:14 Dose: 50 ml Dextrose (Glutose 15) 0 gm PO ONCE PRN; Protocol PRN Reason: Hypoglycemia Protocol Escitalopram Oxalate (Lexapro) 10 mg PO DAILY [facility] Last Admin: 11/01/18 13:48 Dose: 10 mg Glucagon (Glucagen Diagnostic Kit) 0 mg IM STAT PRN; Protocol PRN Reason: Hypoglycemia Protocol Home Med (Bictegrav/Emtricit/Tenofov Ala [Biktarvy 50-200-25 Mg Tablet]) 1 tab PO DAILY [facility] Last Admin: 11/01/18 13:47 Dose: 1 tab Hydromorphone HCl (Dilaudid) 1 mg IVP Q4 PRN PRN Reason: Pain, severe (8-10) Piperacillin Sod/Tazobactam (Sod 3.375 gm/ Sodium Chloride) 100 mls @ 100 mls/hr IVPB Q8@0500,1300,2100 [facility]; Protocol Last Admin: 11/02/18 04:25 Dose: 100 mls/hr Dextrose/Sodium Chloride (Dextrose 5%/0.45% Ns 1000 Ml) 1,000 mls @ 100 mls/hr IV .Q10H [facility] Stop: 11/02/18 22:28 Last Admin: 11/01/18 20:40 Dose: 100 mls/hr Insulin Human Regular (Humulin R) 0 units SC ACHS [facility]; Protocol Last Admin: 11/01/18 21:53 Dose: Not Given Metformin HCl (Glucophage) 1,000 mg PO BID [facility] Last Admin: 11/01/18 09:58 Dose: Not Given Naproxen (Naproxen) 500 mg PO BID [facility] Last Admin: 11/01/18 16:53 Dose: Not Given Ondansetron HCl (Zofran Inj) 4 mg IVP Q4 PRN PRN Reason: Nausea/Vomiting Oxybutynin Chloride (Ditropan Tab) 5 mg PO BID [facility] Last Admin: 11/01/18 16:56 Dose: Not Given Pravastatin Sodium (Pravachol) 20 mg PO DAILY [facility] Last Admin: 11/01/18 13:12 Dose: Not Given Sitagliptin Phosphate (Januvia) 50 mg PO BID [facility] Last Admin: 11/01/18 16:50 Dose: Not Given - Labs Labs: 11/02/18 05:30 11/02/18 05:30 PT 12.8 Seconds (9.8-13.1) 11/01/18 05:30 INR 1.1 11/01/18 05:30 APTT 29.3 Seconds (25.6-37.1) 11/01/18 05:30 - Constitutional Appears: Non-toxic, No Acute Distress - Respiratory Exam Respiratory Exam: Clear to Ausculation Bilateral, NORMAL BREATHING PATTERN - Cardiovascular Exam Cardiovascular Exam: REGULAR RHYTHM, +S1, +S2 - GI/Abdominal Exam GI & Abdominal Exam: Soft. absent: Distended, Firm, Guarding, Rigid, Tenderness, Rebound Assessment and Plan - Assessment and Plan (Free Text) Assessment: 73F with choledocholithiasis Plan: - T bili normalized - Patient on schedule for AM ERCP - Follow up GI plans - No surgical intervention Further recs discuss with Dr. Jacob Kirby, PGY3
--- NOTE | 2018-11-02 10:45 | CP.PCM.PN ---
Subjective - Date & Time of Evaluation Date of Evaluation: 11/02/18 Time of Evaluation: 10:44 - Subjective Subjective: Podiatry progress note for Dr. Andrade 73 y/o female patient was seen and evaluated at bedside. Patient reports constant, minimal pain to both wounds. Patient offers no other pedal complaints. Patient reports she is NPO at this time for possible ERCP procedure Objective - Vital Signs/Intake and Output Vital Signs (last 24 hours): Temp Pulse Resp BP Pulse Ox 98.3 F 54 L 18 130/63 99 11/02/18 08:09 11/02/18 08:09 11/02/18 08:09 11/02/18 08:09 11/02/18 08:09 - Medications Medications: Current Medications Alendronate Sodium (Fosamax) 70 mg PO MON [facility] Last Admin: 11/01/18 09:58 Dose: Not Given Dextrose (Dextrose 50% Inj) 0 ml IV STAT PRN; Protocol PRN Reason: Hypoglycemia Protocol Last Admin: 11/01/18 06:14 Dose: 50 ml Dextrose (Glutose 15) 0 gm PO ONCE PRN; Protocol PRN Reason: Hypoglycemia Protocol Escitalopram Oxalate (Lexapro) 10 mg PO DAILY [facility] Last Admin: 11/01/18 13:48 Dose: 10 mg Glucagon (Glucagen Diagnostic Kit) 0 mg IM STAT PRN; Protocol PRN Reason: Hypoglycemia Protocol Home Med (Bictegrav/Emtricit/Tenofov Ala [Biktarvy 50-200-25 Mg Tablet]) 1 tab PO DAILY [facility] Last Admin: 11/01/18 13:47 Dose: 1 tab Hydromorphone HCl (Dilaudid) 1 mg IVP Q4 PRN PRN Reason: Pain, severe (8-10) Piperacillin Sod/Tazobactam (Sod 3.375 gm/ Sodium Chloride) 100 mls @ 100 mls /hr IVPB Q8@0500,1300,2100 [facility]; Protocol Last Admin: 11/02/18 04:25 Dose: 100 mls/hr Dextrose/Sodium Chloride (Dextrose 5%/0.45% Ns 1000 Ml) 1,000 mls @ 100 mls/hr IV .Q10H [facility] Stop: 11/02/18 22:28 Last Admin: 11/01/18 20:40 Dose: 100 mls/hr Insulin Human Regular (Humulin R) 0 units SC ACHS [facility]; Protocol Last Admin: 11/01/18 21:53 Dose: Not Given Metformin HCl (Glucophage) 1,000 mg PO BID [facility] Last Admin: 11/01/18 09:58 Dose: Not Given Naproxen (Naproxen) 500 mg PO BID [facility] Last Admin: 11/01/18 16:53 Dose: Not Given Ondansetron HCl (Zofran Inj) 4 mg IVP Q4 PRN PRN Reason: Nausea/Vomiting Oxybutynin Chloride (Ditropan Tab) 5 mg PO BID [facility] Last Admin: 11/01/18 16:56 Dose: Not Given Pravastatin Sodium (Pravachol) 20 mg PO DAILY [facility] Last Admin: 11/01/18 13:12 Dose: Not Given Sitagliptin Phosphate (Januvia) 50 mg PO BID [facility] Last Admin: 11/01/18 16:50 Dose: Not Given - Labs Labs: 11/02/18 05:30 11/02/18 05:30 PT 12.8 Seconds (9.8-13.1) 11/01/18 05:30 INR 1.1 11/01/18 05:30 APTT 29.3 Seconds (25.6-37.1) 11/01/18 05:30 - Constitutional Appears: Well, Non-toxic, No Acute Distress - Head Exam Head Exam: ATRAUMATIC, NORMOCEPHALIC - Extremities Exam Additional comments: Bilateral lower extremity: VASC: DP and PT pulses palpable 2/4 b/l. CFT <3 seconds to all digits. Temperature gradient warm to warm, with no significant increase in warmth periwound. No edema appreciated. NEURO: Gross sensation intact bilaterally. DERM: LLE: Full thickness ulceration noted to lateral malleolus measuring approximatel y 1.5 x 2.0 x 0.1 cm - ulcer is noted to have a mixed fibrogranular base with minimal erythema periwound; no drainage; no purulence; no fluctuance; no undermining; no tunneling; no clinical suspicion of active infection. Atrophic skin changes circumfirentially around ankle RLE: Full thickness ulceration noted to lateral malleolus measuring approximately 1.9 x 4.5 x 0.1 cm - ulcer is noted to have a mixed fibrogranular base with minimal erythema periwound; no drainage; no purulence; no fluctuance; no undermining; no tunneling; no clinical suspicion of active infection. Atrophic skin changes circumfirentially around ankle ORTHO: Pain on palpation noted to wounds b/l. Muscle strength 5/5 for all dorsiflexors, plantarflexors, inverters, and everters b/l. - Neurological Exam Neurological Exam: Alert, Awake, Oriented x3 - Psychiatric Exam Psychiatric exam: Normal Affect, Normal Mood Assessment and Plan - Assessment and Plan (Free Text) Assessment: 73 y/o female with bilateral ankle ulcerations, non-infected Plan: Patient seen and evaluated Discussed with attending, Dr. Andrade Chart, labs and vitals were reviewed- afebrile, absent leukocytosis No clinical suspicion of active infection, will continue to monitor Local wound care provided - xeroform, DSD b/l Activity: WBAT to bilateral LE Pain control per primary Podiatry will continue to follow while in house
[2018-11-02] MEDS: Patient's Own Med (Bictegrav/Emtricit/Tenofov Ala [Biktarvy 50-200-25 Mg Tablet] 1 TAB) PO SCH (11:03)
[2018-11-02] MEDS: Naproxen 500 MG TAB PO SCH ×2 (11:04→16:54)
[2018-11-02] MEDS: Insulin Regular 100 units/ml SC SCH ×4 (11:04→22:20)
[2018-11-02] MEDS: Pravastatin Sodium 20 MG TAB PO SCH (11:05)
--- NOTE | 2018-11-02 12:15 | CP.PCM.PN ---
Subjective - Date & Time of Evaluation Date of Evaluation: 11/02/18 Time of Evaluation: 12:12 - Subjective Subjective: General surgery Pt seen and examined this AM. She reports last night having some nausea and diarrhea with mild abdominal pain after having clear liquids, nothing today. She denies any abdominal pain at this time. ERCP was cancelled due to normal t bili as per [employer] report. Labs and vitals noted. LFTs and T bili improving Pe Gen: Pt laying in bed in NAD Skin: warm and dry, bilateral ankle ulcers in clean dressings) Cardio: s1s2 RRR Lungs: CTA bilaterally Abd: soft nTND Extr: (-) calf tenderness bilaterally A/P Choledocolithiasis s/p distant cholecystectomy Monitor labs Continue diet F/U with GI recs. Will follow Objective - Vital Signs/Intake and Output Vital Signs (last 24 hours): Temp Pulse Resp BP Pulse Ox 98.3 F 54 L 18 130/63 99 11/02/18 08:09 11/02/18 08:09 11/02/18 08:09 11/02/18 08:09 11/02/18 08:09 - Medications Medications: Current Medications Alendronate Sodium (Fosamax) 70 mg PO MON [facility] Last Admin: 11/01/18 09:58 Dose: Not Given Dextrose (Dextrose 50% Inj) 0 ml IV STAT PRN; Protocol PRN Reason: Hypoglycemia Protocol Last Admin: 11/01/18 06:14 Dose: 50 ml Dextrose (Glutose 15) 0 gm PO ONCE PRN; Protocol PRN Reason: Hypoglycemia Protocol Escitalopram Oxalate (Lexapro) 10 mg PO DAILY [facility] Last Admin: 11/02/18 11:04 Dose: 10 mg Glucagon (Glucagen Diagnostic Kit) 0 mg IM STAT PRN; Protocol PRN Reason: Hypoglycemia Protocol Home Med (Bictegrav/Emtricit/Tenofov Ala [Biktarvy 50-200-25 Mg Tablet]) 1 tab PO DAILY [facility] Last Admin: 11/02/18 11:03 Dose: 1 tab Hydromorphone HCl (Dilaudid) 1 mg IVP Q4 PRN PRN Reason: Pain, severe (8-10) Piperacillin Sod/Tazobactam (Sod 3.375 gm/ Sodium Chloride) 100 mls @ 100 mls/hr IVPB Q8@0500,1300,2100 [facility]; Protocol Last Admin: 11/02/18 04:25 Dose: 100 mls/hr Dextrose/Sodium Chloride (Dextrose 5%/0.45% Ns 1000 Ml) 1,000 mls @ 100 mls/hr IV .Q10H [facility] Stop: 11/02/18 22:28 Last Admin: 11/01/18 20:40 Dose: 100 mls/hr Insulin Human Regular (Humulin R) 0 units SC ACHS [facility]; Protocol Last Admin: 11/02/18 11:04 Dose: Not Given Metformin HCl (Glucophage) 1,000 mg PO BID [facility] Last Admin: 11/01/18 09:58 Dose: Not Given Naproxen (Naproxen) 500 mg PO BID [facility] Last Admin: 11/02/18 11:04 Dose: Not Given Ondansetron HCl (Zofran Inj) 4 mg IVP Q4 PRN PRN Reason: Nausea/Vomiting Oxybutynin Chloride (Ditropan Tab) 5 mg PO BID [facility] Last Admin: 11/02/18 11:03 Dose: 5 mg Pravastatin Sodium (Pravachol) 20 mg PO DAILY [facility] Last Admin: 11/02/18 11:05 Dose: Not Given Sitagliptin Phosphate (Januvia) 50 mg PO BID [facility] Last Admin: 11/02/18 11:04 Dose: Not Given - Labs Labs: 11/02/18 05:30 11/02/18 05:30 PT 12.8 Seconds (9.8-13.1) 11/01/18 05:30 INR 1.1 11/01/18 05:30 APTT 29.3 Seconds (25.6-37.1) 11/01/18 05:30
--- NOTE | 2018-11-02 12:15 | CP.PCM.CON ---
History of Present Illness - History of Present Illness History of Present Illness: chart reviewed 73 year old female patient admitted with choledocholithiasis s/p remote cholecystectomy as well as bilateral ankle wounds.Referred for ID eval of HIV infection PMHx: DM, HTN, HLD, HIV, hx choledocholithiasis, brain aneurysm PSH: b/l hip replacement, ERCP, cholecystectomy, brain aneurysm clippin SH:denies ETOH/tobacco/illicit drug use All: NKDA Review of Systems - Review of Systems All systems: reviewed and no additional remarkable complaints except - Constitutional Constitutional: absent: As Per HPI, Anorexia, Chills, Daytime Sleepiness, Excessive Sweating, Fatigue, Fever, Frequent Falls, Headache, Increased Appetite, Lethargy, Malaise, Night Sweats, Snoring, Sleep Apnea, Weight Gain, Weight Loss, Weakness, Other - EENT Eyes: absent: As Per HPI, Blind Spots, Blurred Vision, Change in Vision, Decreased Night Vision, Diplopia, Discharge, Dry Eye, Exophthalmos, Floaters, Irritation, Itchy Eyes, Loss of Peripheral Vision, Pain, Photophobia, Requires Corrective Lenses, Sees Flashes, Spots in Vision, Tunnel Vision, Other Visual Disturbances, Loss of Vision, Other Ears: absent: As Per HPI, Decreased Hearing, Ear Discharge, Ear Pain, Tinnitus, Abnormal Hearing, Disequilibrium, Dizziness, Other Nose/Mouth/Throat: absent: As Per HPI, Epistaxis, Nasal Congestion, Nasal Discharge, Nasal Obstruction, Nasal Trauma, Nose Pain, Post Nasal Drip, Sinus Pain, Sinus Pressure, Bleeding Gums, Change in Voice, Dental Pain, Dry Mouth, Dysphagia, Halitosis, Hoarsness, Lip Swelling, Mouth Lesions, Mouth Pain, Odynophagia, Sore Throat, Throat Swelling, Tongue Swelling, Facial Pain, Neck Pain, Neck Mass, Other - Breasts Breasts: absent: As Per HPI, Change in Shape, Mass, Pain, Nipple Discharge, Nipple Inversion, Skin Changes, Swelling, Other - Respiratory Respiratory: absent: As Per HPI, Cough, Dyspnea, Hemoptysis, Dyspnea on Exertion, Wheezing, Snoring, Stridor, Pain on Inspiration, Chest Congestion, Excessive Mucous Production, Change in Mucous Color, Pain with Coughing, Other - Gastrointestinal Gastrointestinal: As Per HPI - Genitourinary Genitourinary: absent: As Per HPI, Change in Urinary Stream, Difficulty Urinating, Dysuria, Flank Pain, Hematuria, Pyuria, Nocturia, Urinary Incontinence, Urinary Frequency, Urinary Hesitance, Urinary Urgency, Voiding Freq/Small Amts, Freq UTI, Hx Renal/Bladder Calculi, Hx /Renal Surgery, Bladder Distension, Other - Reproductive: Female Reproductive:Female: absent: As Per HPI, Amenorrhea, Amenorrhea/ Control, Currently Menstual, Cycle <21 Days, Cycle >35 Days, Cycle Variable, Menses 1-7 Days, Menses >/= 8 Days, Menses Variable, Cycle > 4 Weeks Between, No Menses for 6 Months, Heavy Menses, Light Menses, Normal Menses, Spotting Between Cycles, S/P Hysterectomy, Menopausal, Post Menopausal, Premenarche, Abnormal Vaginal Bleeding, Dysmenorrhea, Dyspareunia, Genital Lesions, Genital Pruritis, Pelvic Pain, Prolapse Symptoms, Sexual Dysfunction, Vaginal Discharge, Vaginal Dryness, Vaginal Odor, Vaginal Pruritis, Other - Menstruation Menstruation: absent: As Per HPI, Amenorrhea, Amenorrhea/ Control, Currently Menstual, Cycle <21 Days, Cycle >35 Days, Cycle Variable, Menses 1-7 Days, Menses >/= 8 Days, Menses Variable, Cycle > 4 Weeks Between, No Menses for 6 Months, Heavy Menses, Light Menses, Normal Menses, Spotting Between Cycles, S/P Hysterectomy, Menopausal, Post Menopausal, Premenarche, Abnormal Vaginal Bl eeding, Dysmenorrhea, Other - Musculoskeletal Musculoskeletal: absent: As Per HPI, Abnormal Gait, Arthralgias, Atrophy, Back Pain, Deformity, Joint Swelling, Limited Range of Motion, Loss of Height, Muscle Cramps, Muscle Weakness, Myalgias, Neck Pain, Numbness, Radiating Pain into Limb, Stiffness, Tingling, Other - Integumentary Integumentary: As Per HPI - Neurological Neurological: absent: As Per HPI, Abnormal Gait, Abnormal Hearing, Abnormal Movements, Abnormal Speech, Behavioral Changes, Burning Sensations, Confusion, Convulsions, Disequilibrium, Dizziness, Numbness, Focal Weakness, Frequent Falls, Headaches, Lack of Coordination, Loss of Vision, Memory Loss, Paresthesias, Radicular Pain, Restless Legs, Sensory Deficit, Syncope, Tingling, Tremor, Vertigo, Weakness, Other Visual Disturbances, Other - Psychiatric Psychiatric: absent: As Per HPI, Abnormal Sleep Pattern, Anhedonia, Anxiety, Auditory Hallucinations, Behavioral Changes, Change in Appetite, Change in Libido, Confusion, Depression, Difficulty Concentrating, Hallucinations, Homicidal Ideation, Hopelessness, Irritability, Memory Loss, Mood Swings, Panic Attacks, Paranoia, Suicidal Ideation, Visual Hallucinations, Tactile Hallucinations, Other - Endocrine Endocrine: absent: As Per HPI, Change in Body Appearance, Change in Libido, Cold Intolorance, Deepening of Voice, Excessive Sweating, Fatigue, Flushing, Heat Intolorance, Increase in Ring/Shoe/Hat Size, Palpitations, Polydipsia, Polyphagia, Polyuria, Other - Hematologic/Lymphatic Hematologic: absent: As Per HPI, Easy Bleeding, Easy Bruising, Lymphadenopathy, Other Past Patient History - Infectious Disease Hx of Infectious Diseases: None - Past Medical History & Family History Past Medical History?: Yes - Past Social History Alcohol: None Drugs: Denies - CARDIAC Hx Hypercholesterolemia: Yes Hx Hypertension: Yes - PULMONARY Hx Respiratory Disorders: No - NEUROLOGICAL Hx Neurological Disorder: No Other/Comment: Brain aneurys with surgery and clips - HEENT Other/Comment: Mannie hearing aids - RENAL Hx Chronic Kidney Disease: No - ENDOCRINE/METABOLIC Hx Hypothyroidism: Yes - HEMATOLOGICAL/ONCOLOGICAL Hx Human Immunodeficiency Virus (HIV): Yes - MUSCULOSKELETAL/RHEUMATOLOGICAL Hx Falls: No - GASTROINTESTINAL Hx Gastrointestinal Disorders: No - GENITOURINARY/GYNECOLOGICAL Hx Genitourinary Disorders: No - PSYCHIATRIC Hx Psychophysiologic Disorder: No Hx Substance Use: No - SURGICAL HISTORY Hx Appendectomy: Yes Hx Cholecystectomy: Yes - ANESTHESIA Hx Anesthesia: Yes Hx Anesthesia Reactions: No Hx Malignant Hyperthermia: No Meds Allergies/Adverse Reactions: Allergies Allergy/AdvReac Type Severity Reaction Status Date / Time No Known Allergies Allergy Verified 10/31/18 01:35 - Medications Medications: Current Medications Alendronate Sodium (Fosamax) 70 mg PO MON [facility] Last Admin: 11/01/18 09:58 Dose: Not Given Dextrose (Dextrose 50% Inj) 0 ml IV STAT PRN; Protocol PRN Reason: Hypoglycemia Protocol Last Admin: 11/01/18 06:14 Dose: 50 ml Dextrose (Glutose 15) 0 gm PO ONCE PRN; Protocol PRN Reason: Hypoglycemia Protocol Escitalopram Oxalate (Lexapro) 10 mg PO DAILY [facility] Last Admin: 11/02/18 11:04 Dose: 10 mg Glucagon (Glucagen Diagnostic Kit) 0 mg IM STAT PRN; Protocol PRN Reason: Hypoglycemia Protocol Home Med (Bictegrav/Emtricit/Tenofov Ala [Biktarvy 50-200-25 Mg Tablet]) 1 tab PO DAILY [facility] Last Admin: 11/02/18 11:03 Dose: 1 tab Hydromorphone HCl (Dilaudid) 1 mg IVP Q4 PRN PRN Reason: Pain, severe (8-10) Piperacillin Sod/Tazobactam (Sod 3.375 gm/ Sodium Chloride) 100 mls @ 100 mls/hr IVPB Q8@0500,1300,2100 [facility]; Protocol Last Admin: 11/02/18 04:25 Dose: 100 mls/hr Dextrose/Sodium Chloride (Dextrose 5%/0.45% Ns 1000 Ml) 1,000 mls @ 100 mls/hr IV .Q10H [facility] Stop: 11/02/18 22:28 Last Admin: 11/01/18 20:40 Dose: 100 mls/hr Insulin Human Regular (Humulin R) 0 units SC ACHS [facility]; Protocol Last Admin: 11/02/18 11:04 Dose: Not Given Metformin HCl (Glucophage) 1,000 mg PO BID [facility] Last Admin: 11/01/18 09:58 Dose: Not Given Naproxen (Naproxen) 500 mg PO BID [facility] Last Admin: 11/02/18 11:04 Dose: Not Given Ondansetron HCl (Zofran Inj) 4 mg IVP Q4 PRN PRN Reason: Nausea/Vomiting Oxybutynin Chloride (Ditropan Tab) 5 mg PO BID [facility] Last Admin: 11/02/18 11:03 Dose: 5 mg Pravastatin Sodium (Pravachol) 20 mg PO DAILY [facility] Last Admin: 11/02/18 11:05 Dose: Not Given Sitagliptin Phosphate (Januvia) 50 mg PO BID [facility] Last Admin: 11/02/18 11:04 Dose: Not Given Physical Exam - Constitutional Appears: No Acute Distress - Head Exam Head Exam: ATRAUMATIC, NORMOCEPHALIC - Eye Exam Eye Exam: PERRL - ENT Exam ENT Exam: Mucous Membranes Dry - Respiratory Exam Respiratory Exam: Decreased Breath Sounds, Rhonchi - Cardiovascular Exam Cardiovascular Exam: REGULAR RHYTHM, +S1, +S2 - GI/Abdominal Exam GI & Abdominal Exam: Diminished Bowel Sounds, Soft. absent: Tenderness - Rectal Exam Rectal Exam: Deferred - Exam Exam: NORMAL INSPECTION - Extremities Exam Extremities exam: Positive for: pedal edema, pedal pulses present Additional comments: Bilateral lower extremity: VASC: DP and PT pulses palpable 2/4 b/l. CFT <3 seconds to all digits. Temperature gradient warm to warm, with no significant increase in warmth periwound. No edema appreciated. NEURO: Gross sensation intact bilaterally. DERM: LLE: Full thickness ulceration noted to lateral malleolus measuring approximately 1.5 x 2.0 x 0.1 cm - ulcer is noted to have a mixed fibrogranular base with minimal erythema periwound; minimal serosanuingous drainage; no purulence; no fluctuance; no undermining; no tunneling; no clinical suspicion of active infection. Atrophic skin changes circumfirentially around ankle. RLE: Full thickness ulceration noted to lateral malleolus measuring approximately 1.9 x 4.5 x 0.1 cm - ulcer is noted to have a mixed fibrogranular base with minimal erythema periwound; minimal serosanguinous drainage; no purulence; no fluctuance; no undermining; no tunneling; no clinical suspicion of active infection. Atrophic skin changes circumfirentially around ankle. ORTHO: Pain on palpation noted to wounds b/l. Muscle strength 5/5 for all dorsiflexors, plantarflexors, inverters, and everters b/l. - Back Exam Back exam: absent: CVA tenderness (L), CVA tenderness (R), paraspinal tenderness - Neurological Exam Neurological exam: Alert, CN II-XII Intact, Oriented x3, Reflexes Normal - Psychiatric Exam Psychiatric exam: Normal Mood - Skin Skin Exam: Dry Results - Vital Signs Recent Vital Signs: Last Vital Signs Temp 98.3 F 11/02/18 08:09 Pulse 54 L 11/02/18 08:09 Resp 18 11/02/18 08:09 BP 130/63 11/02/18 08:09 Pulse Ox 99 11/02/18 08:09 - Labs Result Diagrams: 11/02/18 05:30 11/02/18 05:30 Labs: Laboratory Results - last 24 hr 11/01/18 11/01/18 11/01/18 10:57 15:38 21:39 WBC RBC Hgb Hct MCV MCH MCHC RDW Plt Count Sodium Potassium Chloride Carbon Dioxide Anion Gap BUN Creatinine Est GFR ( Amer) Est GFR (Non-Af Amer) POC Glucose (mg/dL) 81 84 Random Glucose Calcium Total Bilirubin AST ALT Alkaline Phosphatase Total Protein Albumin Globulin Albumin/Globulin Ratio CA 19-9 Antigen < 1.4 11/02/18 11/02/18 11/02/18 05:30 05:30 06:06 WBC 6.8 RBC 3.00 L Hgb 9.7 L Hct 28.2 L MCV 93.9 MCH 32.5 H MCHC 34.6 RDW 19.2 H Plt Count 283 Sodium 140 Potassium 3.7 Chloride 109 H Carbon Dioxide 25 Anion Gap 10 BUN 5 L Creatinine 0.8 Est GFR ( Amer) > 60 Est GFR (Non-Af Amer) > 60 POC Glucose (mg/dL) 84 Random Glucose 91 Calcium 8.9 Total Bilirubin 1.1 AST 215 H D ALT 172 H D Alkaline Phosphatase 384 H Total Protein 8.2 Albumin 3.0 L Globulin 5.1 H Albumin/Globulin Ratio 0.6 L CA 19-9 Antigen 11/02/18 11:31 WBC RBC Hgb Hct MCV MCH MCHC RDW Plt Count Sodium Potassium Chloride Carbon Dioxide Anion Gap BUN Creatinine Est GFR ( Amer) Est GFR (Non-Af Amer) POC Glucose (mg/dL) 93 Random Glucose Calcium Total Bilirubin AST ALT Alkaline Phosphatase Total Protein Albumin Globulin Albumin/Globulin Ratio CA 19-9 Antigen Assessment & Plan (1) Choledocholithiasis Status: Acute (2) Transaminitis Status: Acute (3) Ascending cholangitis Status: Acute - Assessment and Plan (Free Text) Assessment: cont HAART rx IV antibiotics await cukltures
[2018-11-03] MEDS: Piperacillin/Tazobact 3.375 GM in Sodium Chloride 0.9% 100 ML IVPB SCH ×3 (04:05→21:06)
[2018-11-03 06:24] LABS: HEMOGLOBIN 10.3 g/dL (12.0-16.0); MEAN CELL VOLUME 92.2 fl (81.0-99.0); MEAN CORPUSCULAR HEMOGLOBIN 32.2 pg (27.0-31.0); MEAN CORPUSCULAR HGB CONC 34.9 g/dL (33.0-37.0); RBC 3.21 Mil/uL (3.80-5.20); WHITE BLOOD COUNT 5.9 K/uL (4.8-10.8)
[2018-11-03 06:52] LABS: ALB/GLOB RATIO 0.6 (1.0-2.1); ALT/SGPT 130 U/L (9-52); AMYLASE 118 U/L (30-110); AST/SGOT 131 U/L (14-36); BLOOD UREA NITROGEN 4 mg/dl (7-17); CALCIUM 8.8 mg/dL (8.4-10.2); GFR NON-AFRICAN AMERICAN > 60; LIPASE 153 U/L (23-300)
[2018-11-03] MEDS: Patient's Own Med (Bictegrav/Emtricit/Tenofov Ala [Biktarvy 50-200-25 Mg Tablet] 1 TAB) PO SCH (08:48)
[2018-11-03] MEDS: Insulin Regular 100 units/ml SC SCH ×4 (08:49→22:30)
[2018-11-03] MEDS: Naproxen 500 MG TAB PO SCH (08:50)
[2018-11-03] MEDS: Pravastatin Sodium 20 MG TAB PO SCH (08:51)
--- NOTE | 2018-11-03 09:02 | CP.PCM.PN ---
Subjective - Date & Time of Evaluation Date of Evaluation: 11/03/18 Time of Evaluation: 09:01 - Subjective Subjective: Podiatry progress note for Dr. Andrade 73 y/o female patient was seen and evaluated at bedside. Patient reports constant, minimal pain to both wounds. Patient offers no other pedal complaints. Patient denies F/N/V/SOB/CP Objective - Vital Signs/Intake and Output Vital Signs (last 24 hours): Temp Pulse Resp BP Pulse Ox 97.7 F 55 L 18 101/61 97 11/03/18 00:49 11/03/18 00:49 11/03/18 00:49 11/03/18 00:49 11/03/18 00:49 - Medications Medications: Current Medications Alendronate Sodium (Fosamax) 70 mg PO MON [facility] Last Admin: 11/01/18 09:58 Dose: Not Given Dextrose (Dextrose 50% Inj) 0 ml IV STAT PRN; Protocol PRN Reason: Hypoglycemia Protocol Last Admin: 11/01/18 06:14 Dose: 50 ml Dextrose (Glutose 15) 0 gm PO ONCE PRN; Protocol PRN Reason: Hypoglycemia Protocol Escitalopram Oxalate (Lexapro) 10 mg PO DAILY [facility] Last Admin: 11/03/18 08:50 Dose: 10 mg Glucagon (Glucagen Diagnostic Kit) 0 mg IM STAT PRN; Protocol PRN Reason: Hypoglycemia Protocol Home Med (Bictegrav/Emtricit/Tenofov Ala [Biktarvy 50-200-25 Mg Tablet]) 1 tab PO DAILY [facility] Last Admin: 11/03/18 08:48 Dose: 1 tab Piperacillin Sod/Tazobactam (Sod 3.375 gm/ Sodium Chloride) 100 mls @ 100 mls/hr IVPB Q8@0500,1300,2100 [facility]; Protocol Last Admin: 11/03/18 04:05 Dose: 100 mls/hr Insulin Human Regular (Humulin R) 0 units SC ACHS [facility]; Protocol Last Admin: 11/03/18 08:49 Dose: Not Given Metformin HCl (Glucophage) 1,000 mg PO BID [facility] Last Admin: 11/01/18 09:58 Dose: Not Given Naproxen (Naproxen) 500 mg PO BID [facility] Last Admin: 11/03/18 08:50 Dose: 500 mg Ondansetron HCl (Zofran Inj) 4 mg IVP Q4 PRN PRN Reason: Nausea/Vomiting Oxybutynin Chloride (Ditropan Tab) 5 mg PO BID [facility] Last Admin: 11/03/18 08:48 Dose: 5 mg Pravastatin Sodium (Pravachol) 20 mg PO DAILY [facility] Last Admin: 11/03/18 08:51 Dose: 20 mg Sitagliptin Phosphate (Januvia) 50 mg PO BID [facility] Last Admin: 11/03/18 08:49 Dose: 50 mg - Labs Labs: 11/03/18 05:40 11/03/18 05:40 PT 12.8 Seconds (9.8-13.1) 11/01/18 05:30 INR 1.1 11/01/18 05:30 APTT 29.3 Seconds (25.6-37.1) 11/01/18 05:30 - Constitutional Appears: Well, Non-toxic, No Acute Distress - Head Exam Head Exam: ATRAUMATIC, NORMOCEPHALIC - Extremities Exam Additional comments: Bilateral lower extremity: VASC: DP and PT pulses palpable 2/4 b/l. CFT <3 seconds to all digits. Temperature gradient warm to warm, with no significant increase in warmth periwound. No edema appreciated. NEURO: Gross sensation intact bilaterally. DERM: LLE: Full thickness ulceration noted to lateral malleolus measuring approximate ly 1.5 x 2.0 x 0.1 cm - ulcer is noted to have a mixed fibrogranular base with minimal erythema periwound; no drainage; no purulence; no fluctuance; no undermining; no tunneling; no clinical suspicion of active infection. Atrophic skin changes circumfirentially around ankle RLE: Full thickness ulceration noted to lateral malleolus measuring approximately 1.9 x 4.5 x 0.1 cm - ulcer is noted to have a mixed fibrogranular base with minimal erythema periwound; no drainage; no purulence; no fluctuance; no undermining; no tunneling; no clinical suspicion of active infection. Atrophic skin changes circumfirentially around ankle ORTHO: Pain on palpation noted to wounds b/l. Muscle strength 5/5 for all dorsiflexors, plantarflexors, inverters, and everters b/l. - Neurological Exam Neurological Exam: Alert, Awake, Oriented x3 - Psychiatric Exam Psychiatric exam: Normal Affect, Normal Mood Assessment and Plan - Assessment and Plan (Free Text) Assessment: 73 y/o female with bilateral ankle ulcerations, non-infected Plan: Patient seen and evaluated Discussed with attending, Dr. Andrade Chart, labs and vitals were reviewed- afebrile, absent leukocytosis No clinical suspicion of active infection, will continue to monitor Local wound care provided - xeroform, DSD b/l Activity: WBAT to bilateral LE Pain control per primary Podiatry will continue to follow while in house
--- NOTE | 2018-11-03 09:28 | CP.PCM.PN ---
Subjective - Date & Time of Evaluation Date of Evaluation: 11/03/18 Time of Evaluation: 09:26 - Subjective Subjective: general Surgery Pt seen and examined this AM. She denies having any abdominal pain or n/v. She reports having 2 episodes of diarrhea last night. Afebrile Labs and vitals noted. LFTs continue to trend down, T bili normal PE Gen: Pt laying in bed in NAD Skin: warm and dry Cardio: s1s2 RRR Lungs: CTA bilaterally Abd: Soft NTND Extr: (-) calf tenderness bilaterally, (+) bilateral ankles in clean and dry dressings. A/P Choledocolithiasis Appears to have resolved Continue current diet No surgical intervention Objective - Vital Signs/Intake and Output Vital Signs (last 24 hours): Temp Pulse Resp BP Pulse Ox 97.9 F 53 L 20 131/67 97 11/03/18 09:00 11/03/18 09:00 11/03/18 09:00 11/03/18 09:00 11/03/18 09:00 - Medications Medications: Current Medications Alendronate Sodium (Fosamax) 70 mg PO MON [facility] Last Admin: 11/01/18 09:58 Dose: Not Given Dextrose (Dextrose 50% Inj) 0 ml IV STAT PRN; Protocol PRN Reason: Hypoglycemia Protocol Last Admin: 11/01/18 06:14 Dose: 50 ml Dextrose (Glutose 15) 0 gm PO ONCE PRN; Protocol PRN Reason: Hypoglycemia Protocol Escitalopram Oxalate (Lexapro) 10 mg PO DAILY [facility] Last Admin: 11/03/18 08:50 Dose: 10 mg Glucagon (Glucagen Diagnostic Kit) 0 mg IM STAT PRN; Protocol PRN Reason: Hypoglycemia Protocol Home Med (Bictegrav/Emtricit/Tenofov Ala [Biktarvy 50-200-25 Mg Tablet]) 1 tab PO DAILY [facility] Last Admin: 11/03/18 08:48 Dose: 1 tab Piperacillin Sod/Tazobactam (Sod 3.375 gm/ Sodium Chloride) 100 mls @ 100 mls/hr IVPB Q8@0500,1300,2100 [facility]; Protocol Last Admin: 11/03/18 04:05 Dose: 100 mls/hr Insulin Human Regular (Humulin R) 0 units SC ACHS [facility]; Protocol Last Admin: 11/03/18 08:49 Dose: Not Given Lactobacillus Acidophilus (Bacid Acidophilus) 1 cap PO BID [facility] Metformin HCl (Glucophage) 1,000 mg PO BID [facility] Last Admin: 11/01/18 09:58 Dose: Not Given Naproxen (Naproxen) 500 mg PO BID [facility] Last Admin: 11/03/18 08:50 Dose: 500 mg Ondansetron HCl (Zofran Inj) 4 mg IVP Q4 PRN PRN Reason: Nausea/Vomiting Oxybutynin Chloride (Ditropan Tab) 5 mg PO BID [facility] Last Admin: 11/03/18 08:48 Dose: 5 mg Pravastatin Sodium (Pravachol) 20 mg PO DAILY [facility] Last Admin: 11/03/18 08:51 Dose: 20 mg Sitagliptin Phosphate (Januvia) 50 mg PO BID [facility] Last Admin: 11/03/18 08:49 Dose: 50 mg - Labs Labs: 11/03/18 05:40 11/03/18 05:40 PT 12.8 Seconds (9.8-13.1) 11/01/18 05:30 INR 1.1 11/01/18 05:30 APTT 29.3 Seconds (25.6-37.1) 11/01/18 05:30
[2018-11-03] MEDS: Lactobacillus Acidophilus 500 MU Cap PO SCH ×2 (09:35→16:56)
--- NOTE | 2018-11-03 12:13 | PN ---
DATE: 11/03/2018 SUBJECTIVE: The patient seen and examined. Interim events noted. Consults noted and appreciated. Pulmonary and GI interventions noted and appreciated. The patient's procedures were canceled as the patient had no liver lesion on dedicated liver CAT scan and also bilirubin returned to normal. So, ERCP was also canceled. The patient feels much better. No abdominal pain. No chest pain. No shortness of breath. PHYSICAL EXAMINATION: GENERAL: The patient is in no acute distress. VITAL SIGNS: Stable. HEART: S1, S2, normal and regular. LUNGS: Good bilateral air exchange. ABDOMEN: Soft and nontender. No sign of acute abdomen. No guarding. No rigidity. No rebound. Bowel sounds are present and normal. The patient is tolerating diet well. EXTREMITIES: The patient has chronic ulcers. No acute finding. No edema. No calf swelling. No tenderness. No acute ischemia. CENTRAL NERVOUS SYSTEM: Exam is essentially unchanged. DIAGNOSTIC DATA: Available diagnostic data reviewed. ASSESSMENT AND PLAN: Overall, the patient is medically stable. The patient will need physical therapy evaluation and as far as Infectious Disease, we will continue IV antibiotics for now. Plan as ordered. Case and plan discussed with the patient. Mina Reyes MD
--- NOTE | 2018-11-03 13:05 | CP.PCM.PN ---
Subjective - Date & Time of Evaluation Date of Evaluation: 11/03/18 Time of Evaluation: 08:00 - Subjective Subjective: 73 year old female patient admitted with choledocholithiasis s/p remote cholecystectomy as well as bilateral ankle wounds.Referred for ID eval of HIV infection Objective - Vital Signs/Intake and Output Vital Signs (last 24 hours): Temp Pulse Resp BP Pulse Ox 97.9 F 53 L 20 131/67 97 11/03/18 09:00 11/03/18 09:00 11/03/18 09:00 11/03/18 09:00 11/03/18 09:00 - Medications Medications: Current Medications Alendronate Sodium (Fosamax) 70 mg PO MON [facility] Last Admin: 11/01/18 09:58 Dose: Not Given Dextrose (Dextrose 50% Inj) 0 ml IV STAT PRN; Protocol PRN Reason: Hypoglycemia Protocol Last Admin: 11/01/18 06:14 Dose: 50 ml Dextrose (Glutose 15) 0 gm PO ONCE PRN; Protocol PRN Reason: Hypoglycemia Protocol Escitalopram Oxalate (Lexapro) 10 mg PO DAILY [facility] Last Admin: 11/03/18 08:50 Dose: 10 mg Glucagon (Glucagen Diagnostic Kit) 0 mg IM STAT PRN; Protocol PRN Reason: Hypoglycemia Protocol Home Med (Bictegrav/Emtricit/Tenofov Ala [Biktarvy 50-200-25 Mg Tablet]) 1 tab PO DAILY [facility] Last Admin: 11/03/18 08:48 Dose: 1 tab Piperacillin Sod/Tazobactam (Sod 3.375 gm/ Sodium Chloride) 100 mls @ 100 mls/hr IVPB Q8@0500,1300,2100 [facility]; Protocol Last Admin: 11/03/18 12:23 Dose: 100 mls/hr Insulin Human Regular (Humulin R) 0 units SC ACHS [facility]; Protocol Last Admin: 11/03/18 12:10 Dose: Not Given Lactobacillus Acidophilus (Bacid Acidophilus) 1 cap PO BID [facility] Last Admin: 11/03/18 09:35 Dose: 1 cap Metformin HCl (Glucophage) 1,000 mg PO BID [facility] Last Admin: 11/01/18 09:58 Dose: Not Given Naproxen (Naproxen) 500 mg PO BID [facility] Last Admin: 11/03/18 08:50 Dose: 500 mg Ondansetron HCl (Zofran Inj) 4 mg IVP Q4 PRN PRN Reason: Nausea/Vomiting Oxybutynin Chloride (Ditropan Tab) 5 mg PO BID [facility] Last Admin: 11/03/18 08:48 Dose: 5 mg Pravastatin Sodium (Pravachol) 20 mg PO DAILY [facility] Last Admin: 11/03/18 08:51 Dose: 20 mg Sitagliptin Phosphate (Januvia) 50 mg PO BID [facility] Last Admin: 11/03/18 08:49 Dose: 50 mg - Labs Labs: 11/03/18 05:40 11/03/18 05:40 PT 12.8 Seconds (9.8-13.1) 11/01/18 05:30 INR 1.1 11/01/18 05:30 APTT 29.3 Seconds (25.6-37.1) 11/01/18 05:30 - Constitutional Appears: Non-toxic, Chronically Ill - Head Exam Head Exam: NORMOCEPHALIC - Eye Exam Eye Exam: absent: Scleral icterus - ENT Exam ENT Exam: Mucous Membranes Dry - Neck Exam Neck Exam: absent: Lymphadenopathy - Respiratory Exam Respiratory Exam: Decreased Breath Sounds - Cardiovascular Exam Cardiovascular Exam: REGULAR RHYTHM - GI/Abdominal Exam GI & Abdominal Exam: Distended, Soft - Rectal Exam Rectal Exam: Deferred - Exam Exam: NORMAL INSPECTION - Extremities Exam Extremities Exam: absent: Pedal Edema - Back Exam Back Exam: absent: CVA tenderness (L), CVA tenderness (R) Assessment and Plan (1) Choledocholithiasis Status: Acute (2) Transaminitis Status: Acute (3) Ascending cholangitis Status: Acute - Assessment and Plan (Free Text) Assessment: cont wwound care iv antibiotics HAART rx check T cells
[2018-11-03] MEDS ORDERED: Potassium Chloride 20 mEq ER Tab PO ONE (21:24)
[2018-11-03] MEDS: Dextrose 5%/0.45% NS 1,000 ML IV SCH (22:27)
[2018-11-04] MEDS: Piperacillin/Tazobact 3.375 GM in Sodium Chloride 0.9% 100 ML IVPB SCH (04:34)
[2018-11-04 06:10] LABS: HEMOGLOBIN 9.7 g/dL (12.0-16.0); MEAN CELL VOLUME 92.6 fl (81.0-99.0); MEAN CORPUSCULAR HEMOGLOBIN 32.2 pg (27.0-31.0); MEAN CORPUSCULAR HGB CONC 34.8 g/dL (33.0-37.0); RED CELL DISTRIBUTION WIDTH 19.1 % (11.5-14.5); WHITE BLOOD COUNT 6.4 K/uL (4.8-10.8)
[2018-11-04 06:45] LABS: ALB/GLOB RATIO 0.6 (1.0-2.1); ALBUMIN 2.9 g/dL (3.5-5.0); ALT/SGPT 101 U/L (9-52); AST/SGOT 79 U/L (14-36); BLOOD UREA NITROGEN 7 mg/dl (7-17); CALCIUM 9.2 mg/dL (8.4-10.2); GFR NON-AFRICAN AMERICAN > 60
[2018-11-04] MEDS ORDERED: Phenylephrine 10 mg/ml Inj ONE (07:16)
[2018-11-04] MEDS ORDERED: Iohexol 240 (50 ml) ONE (07:23)
[2018-11-04] MEDS ORDERED: Lactated Ringer's 500 ML IV ONE (08:21)
[2018-11-04] MEDS ORDERED: Propofol 10 mg/ml Inj (20 ML) ONE (09:17)
--- NOTE | 2018-11-04 10:23 | CP.PCM.PN ---
Subjective - Date & Time of Evaluation Date of Evaluation: 11/04/18 Time of Evaluation: 10:19 - Subjective Subjective: General Surgery Pt seen in endoscopy suite while receiving ERCP, however not examined. As per RN, pt was feeling well. No complaints. Labs and vitals noted. T bili normal and LFTs trending down PE: Unable to examine as pt was having procedure done. A/P Choledocolithiasis Pt went for ERCP this AM. Monitor labs. Monitor abdominal exam. Objective - Vital Signs/Intake and Output Vital Signs (last 24 hours): Temp Pulse Resp BP Pulse Ox 98.3 F 59 L 18 128/68 98 11/04/18 08:26 11/04/18 08:26 11/04/18 08:26 11/04/18 08:26 11/04/18 08:26 Intake and Output: 11/04/18 11/04/18 06:59 18:59 Intake Total 150 Balance 150 - Medications Medications: Current Medications Alendronate Sodium (Fosamax) 70 mg PO MON [facility] Last Admin: 11/01/18 09:58 Dose: Not Given Dextrose (Dextrose 50% Inj) 0 ml IV STAT PRN; Protocol PRN Reason: Hypoglycemia Protocol Last Admin: 11/01/18 06:14 Dose: 50 ml Dextrose (Glutose 15) 0 gm PO ONCE PRN; Protocol PRN Reason: Hypoglycemia Protocol Escitalopram Oxalate (Lexapro) 10 mg PO DAILY [facility] Last Admin: 11/03/18 08:50 Dose: 10 mg Glucagon (Glucagen Diagnostic Kit) 0 mg IM STAT PRN; Protocol PRN Reason: Hypoglycemia Protocol Home Med (Bictegrav/Emtricit/Tenofov Ala [Biktarvy 50-200-25 Mg Tablet]) 1 tab PO DAILY [facility] Last Admin: 11/03/18 08:48 Dose: 1 tab Insulin Human Regular (Humulin R) 0 units SC [facility]; Protocol Last Admin: 11/03/18 22:30 Dose: Not Given Lactobacillus Acidophilus (Bacid Acidophilus) 1 cap PO BID [facility] Last Admin: 11/03/18 16:56 Dose: 1 cap Metformin HCl (Glucophage) 1,000 mg PO BID [facility] Last Admin: 11/01/18 09:58 Dose: Not Given Naproxen (Naproxen) 500 mg PO BID [facility] Last Admin: 12/05/18 08:50 Dose: 500 mg Ondansetron HCl (Zofran Inj) 4 mg IVP Q4 PRN PRN Reason: Nausea/Vomiting Oxybutynin Chloride (Ditropan Tab) 5 mg PO BID [facility] Last Admin: 11/03/18 16:56 Dose: 5 mg Pravastatin Sodium (Pravachol) 20 mg PO DAILY [facility] Last Admin: 11/03/18 08:51 Dose: 20 mg Sitagliptin Phosphate (Januvia) 50 mg PO BID [facility] Last Admin: 11/03/18 16:56 Dose: 50 mg - Labs Labs: 11/04/18 05:30 11/04/18 05:30 PT 12.8 Seconds (9.8-13.1) 11/01/18 05:30 INR 1.1 11/01/18 05:30 APTT 29.3 Seconds (25.6-37.1) 11/01/18 05:30
[2018-11-04] MEDS: Insulin Regular 100 units/ml SC SCH ×4 (11:19→22:00)
[2018-11-04] MEDS: Pravastatin Sodium 20 MG TAB PO SCH (11:26)
[2018-11-04] MEDS: Patient's Own Med (Bictegrav/Emtricit/Tenofov Ala [Biktarvy 50-200-25 Mg Tablet] 1 TAB) PO SCH (11:26)
--- NOTE | 2018-11-04 12:31 | RAD ---
Date of service: 11/04/2018 PROCEDURE: Intraoperative fluoroscopy HISTORY: CBD STONE(S) COMPARISON: Not available TECHNIQUE: Intraoperative fluoroscopy was provided for ERCP examination. Total time of fluoroscopy was 347.2 sec. Cumulative dose was 59.66 mGy. FINDINGS: Sequential images demonstrate progressive retrograde injection of dye into the biliary tree. Common bile duct appears mildly dilated. No filling defect is demonstrated. Please see full report from gastroenterology. IMPRESSION: Fluoroscopy provided.
[2018-11-04] MEDS: Lactobacillus Acidophilus 500 MU Cap PO SCH ×2 (12:49→17:36)
[2018-11-04] MEDS: Lactated Ringer's 1,000 ML IV SCH ×2 (12:51→22:00)
--- NOTE | 2018-11-04 14:09 | CP.PCM.PN ---
<Gilbert Morales - Last Filed: 11/04/18 16:18> Subjective - Date & Time of Evaluation Date of Evaluation: 11/04/18 Time of Evaluation: 08:00 - Subjective Subjective: Pt went for ERCP this morning. Evaluated after return. No complaints. Will await ERCP reports. Objective - Vital Signs/Intake and Output Vital Signs (last 24 hours): Temp Pulse Resp BP Pulse Ox 98 F 50 L 20 174/72 H 96 11/04/18 13:00 11/04/18 13:00 11/04/18 13:00 11/04/18 13:00 11/04/18 13:00 Intake and Output: 11/04/18 11/04/18 06:59 18:59 Intake Total 250 Balance 250 - Medications Medications: Current Medications Alendronate Sodium (Fosamax) 70 mg PO MON [facility] Last Admin: 11/01/18 09:58 Dose: Not Given Dextrose (Dextrose 50% Inj) 0 ml IV STAT PRN; Protocol PRN Reason: Hypoglycemia Protocol Last Admin: 11/01/18 06:14 Dose: 50 ml Dextrose (Glutose 15) 0 gm PO ONCE PRN; Protocol PRN Reason: Hypoglycemia Protocol Escitalopram Oxalate (Lexapro) 10 mg PO DAILY [facility] Last Admin: 11/04/18 11:26 Dose: 10 mg Glucagon (Glucagen Diagnostic Kit) 0 mg IM STAT PRN; Protocol PRN Reason: Hypoglycemia Protocol Home Med (Bictegrav/Emtricit/Tenofov Ala [Biktarvy 50-200-25 Mg Tablet]) 1 tab PO DAILY [facility] Last Admin: 11/04/18 11:26 Dose: 1 tab Lactated Ringer's (Lactated Ringer's) 1,000 mls @ 100 mls/hr IV .Q10H [facility] Last Admin: 11/04/18 12:51 Dose: 100 mls/hr Insulin Human Regular (Humulin R) 0 units SC ACHS [facility]; Protocol Last Admin: 11/04/18 12:51 Dose: Not Given Lactobacillus Acidophilus (Bacid Acidophilus) 1 cap PO BID [facility] Last Admin: 11/04/18 12:49 Dose: Not Given Metformin HCl (Glucophage) 1,000 mg PO BID [facility] Last Admin: 11/01/18 09:58 Dose: Not Given Naproxen (Naproxen) 500 mg PO BID [facility] Last Admin: 11/03/18 08:50 Dose: 500 mg Ondansetron HCl (Zofran Inj) 4 mg IVP Q4 PRN PRN Reason: Nausea/Vomiting Oxybutynin Chloride (Ditropan Tab) 5 mg PO BID [facility] Last Admin: 11/04/18 11:26 Dose: 5 mg Pravastatin Sodium (Pravachol) 20 mg PO DAILY [facility] Last Admin: 11/04/18 11:26 Dose: 20 mg Sitagliptin Phosphate (Januvia) 50 mg PO BID [facility] Last Admin: 11/04/18 11:26 Dose: 50 mg - Labs Labs: 11/04/18 05:30 11/04/18 05:30 PT 12.8 Seconds (9.8-13.1) 11/01/18 05:30 INR 1.1 11/01/18 05:30 APTT 29.3 Seconds (25.6-37.1) 11/01/18 05:30 - Constitutional Appears: No Acute Distress - Head Exam Head Exam: NORMAL INSPECTION - Eye Exam Eye Exam: Normal appearance - ENT Exam ENT Exam: Mucous Membranes Moist - Respiratory Exam Respiratory Exam: Clear to Ausculation Bilateral. absent: Rales - Cardiovascular Exam Cardiovascular Exam: REGULAR RHYTHM, +S2. absent: +S1 - GI/Abdominal Exam GI & Abdominal Exam: Soft, Normal Bowel Sounds. absent: Tenderness - Extremities Exam Extremities Exam: Normal Capillary Refill - Neurological Exam Neurological Exam: Alert, Oriented x3 - Psychiatric Exam Psychiatric exam: Normal Affect - Skin Skin Exam: Normal Color Assessment and Plan - Assessment and Plan (Free Text) Assessment: Pt is a 73 y/o female with hx of Cholelithiasis and cholecystectomy who presented to [facility] with acute abdominal pain and admitted for Cholidocolithiasis in the distal CBD as noted on CT Scan. Plan for ERCP this am. Noted on Abdomen/pelvis CT to have hypodense lesion on liver, however not seen on Liver CT. Cholidocolithiasis - ERCP this am - Liver CT: dilated CBD and intrahepatic biliary tract w/ questionnable stones. No gross lesions in liver. - Transaminitis trending down; lipase normal - Pain controlled - GI and Surgery on board - C/W Zosyn - IVF, D5 BL foot ulcers - Podiatry on board - Wound Care DM -Metformin held due to multiple contrasted studies -C/W Susanne -BS wnl HIV -C/W HAART -ID consulted, Mangia Diet NPO overnight DVT ppx -SCD's for now <Mina Reyes - Last Filed: 11/07/18 17:37> Objective - Vital Signs/Intake and Output Vital Signs (last 24 hours): Temp Pulse Resp BP Pulse Ox 97.4 F L 60 20 119/66 95 11/05/18 16:51 11/05/18 16:51 11/05/18 16:51 11/05/18 16:51 11/05/18 16:51 - Labs Labs: 11/05/18 05:40 11/05/18 05:40 PT 12.8 Seconds (9.8-13.1) 11/01/18 05:30 INR 1.1 11/01/18 05:30 APTT 29.3 Seconds (25.6-37.1) 11/01/18 05:30 Assessment and Plan - Assessment and Plan (Free Text) Assessment: Patient was personally seen and examined by me in rounds with residents. Available labs and diagnostic data reviewed. Case, Patient's condition and management plan discussed with residents in rounds. Agree with resident's progress note. Plan: As ordered.
--- NOTE | 2018-11-04 15:34 | PN ---
DATE: 11/01/2018 SUBJECTIVE: The patient seen and examined. Interim events noted. Consults noted and appreciated. The patient remains in regular medical floor. Feels okay. Denies any chest pain or shortness of breath. Abdominal pain improved. No issues at this time. PHYSICAL EXAMINATION: GENERAL: The patient is in no acute distress. VITAL SIGNS: Stable. HEART EXAM: S1, S2 normal and regular. LUNGS: Good bilateral air exchange. ABDOMEN: Soft, nontender. No organomegaly. No fluids. Bowel sounds are plus and normal. No sign of acute abdomen. No guarding, no rigidity, no rebound. EXTREMITIES: No edema. No calf swelling. No tenderness. No acute ischemia. CENTRAL NERVOUS SYSTEM: Essentially unchanged. DIAGNOSTIC DATA: Available diagnostic data reviewed. ASSESSMENT AND PLAN: The patient is medically stable. Plan as ordered. Mina Reyes MD
[2018-11-04] MEDS: Dextrose 5%/0.45% NS 1,000 ML IV SCH (17:36)
[2018-11-05 06:20] LABS: HEMOGLOBIN 10.6 g/dL (12.0-16.0); MEAN CELL VOLUME 91.9 fl (81.0-99.0); MEAN CORPUSCULAR HEMOGLOBIN 31.6 pg (27.0-31.0); MEAN CORPUSCULAR HGB CONC 34.4 g/dL (33.0-37.0); RBC 3.36 Mil/uL (3.80-5.20); RED CELL DISTRIBUTION WIDTH 19.1 % (11.5-14.5)
--- NOTE | 2018-11-05 07:11 | CP.PCM.PN ---
Subjective - Date & Time of Evaluation Date of Evaluation: 11/05/18 Time of Evaluation: 07:09 - Subjective Subjective: Podiatry progress note for Dr. Andrade 73 y/o female patient was seen and evaluated at bedside. Patient reports constant, minimal pain to both wounds. Patient offers no other pedal complaints. Patient denies F/N/V/SOB/CP/ Patient s/p ERCP Scope, patient offers no complaints at this time Objective - Vital Signs/Intake and Output Vital Signs (last 24 hours): Temp Pulse Resp BP Pulse Ox 98.3 F 56 L 18 112/62 97 11/05/18 00:10 11/05/18 00:10 11/05/18 00:10 11/05/18 00:10 11/05/18 00:10 - Medications Medications: Current Medications Alendronate Sodium (Fosamax) 70 mg PO MON [facility] Last Admin: 11/01/18 09:58 Dose: Not Given Collagenase (Santyl) 1 applic TOP DAILY [facility] Dextrose (Dextrose 50% Inj) 0 ml IV STAT PRN; Protocol PRN Reason: Hypoglycemia Protocol Last Admin: 11/01/18 06:14 Dose: 50 ml Dextrose (Glutose 15) 0 gm PO ONCE PRN; Protocol PRN Reason: Hypoglycemia Protocol Escitalopram Oxalate (Lexapro) 10 mg PO DAILY [facility] Last Admin: 11/04/18 11:26 Dose: 10 mg Glucagon (Glucagen Diagnostic Kit) 0 mg IM STAT PRN; Protocol PRN Reason: Hypoglycemia Protocol Home Med (Bictegrav/Emtricit/Tenofov Ala [Biktarvy 50-200-25 Mg Tablet]) 1 tab PO DAILY [facility] Last Admin: 11/04/18 11:26 Dose: 1 tab Lactated Ringer's (Lactated Ringer's) 1,000 mls @ 100 mls/hr IV .Q10H [facility] Last Admin: 11/04/18 22:00 Dose: 100 mls/hr Insulin Human Regular (Humulin R) 0 units SC [facility]; Protocol Last Admin: 11/04/18 22:00 Dose: Not Given Lactobacillus Acidophilus (Bacid Acidophilus) 1 cap PO BID [facility] Last Admin: 11/04/18 17:36 Dose: 1 cap Metformin HCl (Glucophage) 1,000 mg PO BID [facility] Last Admin: 11/01/18 09:58 Dose: Not Given Naproxen (Naproxen) 500 mg PO BID [facility] Last Admin: 11/03/18 08:50 Dose: 500 mg Ondansetron HCl (Zofran Inj) 4 mg IVP Q4 PRN PRN Reason: Nausea/Vomiting Oxybutynin Chloride (Ditropan Tab) 5 mg PO BID [facility] Last Admin: 11/04/18 17:37 Dose: 5 mg Pravastatin Sodium (Pravachol) 20 mg PO DAILY [facility] Last Admin: 11/04/18 11:26 Dose: 20 mg Sitagliptin Phosphate (Januvia) 50 mg PO BID [facility] Last Admin: 11/04/18 17:36 Dose: 50 mg - Labs Labs: 11/05/18 05:40 11/04/18 05:30 PT 12.8 Seconds (9.8-13.1) 11/01/18 05:30 INR 1.1 11/01/18 05:30 APTT 29.3 Seconds (25.6-37.1) 11/01/18 05:30 - Constitutional Appears: Well, Non-toxic, No Acute Distress - Head Exam Head Exam: ATRAUMATIC, NORMOCEPHALIC - Extremities Exam Additional comments: Bilateral lower extremity: VASC: DP and PT pulses palpable 2/4 b/l. CFT <3 seconds to all digits. Temperature gradient warm to warm, with no significant increase in warmth periwound. No edema appreciated. NEURO: Gross sensation intact bilaterally. DERM: LLE: Full thickness ulceration noted to lateral malleolus measuring approximately 1.5 x 2.0 x 0.1 cm - ulcer is noted to have a mixed fibrogranular base with minimal erythema periwound; no drainage; no purulence; no fluctuance; no undermining; no tunneling; no clinical suspicion of active infection. Atrop hic skin changes circumfirentially around ankle RLE: Full thickness ulceration noted to lateral malleolus measuring approximately 1.9 x 4.5 x 0.1 cm - ulcer is noted to have a mixed fibrogranular base with minimal erythema periwound; no drainage; no purulence; no fluctuance; no undermining; no tunneling; no clinical suspicion of active infection. Atrophic skin changes circumfirentially around ankle ORTHO: Pain on palpation noted to wounds b/l. Muscle strength 5/5 for all dorsiflexors, plantarflexors, inverters, and everters b/l. - Neurological Exam Neurological Exam: Alert, Awake, Oriented x3 - Psychiatric Exam Psychiatric exam: Normal Affect, Normal Mood Assessment and Plan - Assessment and Plan (Free Text) Assessment: 73 y/o female with bilateral ankle ulcerations, non-infected Plan: Patient seen and evaluated Discussed with attending, Dr. Andrade Chart, labs and vitals were reviewed- afebrile, absent leukocytosis No clinical suspicion of active infection, will continue to monitor Local wound care provided - ana maría Kim DSD Ordered multipodus boots Activity: WBAT to bilateral LE Pain control per primary Podiatry will continue to follow while in house
[2018-11-05 07:19] LABS: ALB/GLOB RATIO 0.6 (1.0-2.1); ALBUMIN 3.2 g/dL (3.5-5.0); ALT/SGPT 94 U/L (9-52); AST/SGOT 107 U/L (14-36); BLOOD UREA NITROGEN 5 mg/dl (7-17); CALCIUM 9.9 mg/dL (8.4-10.2); GFR NON-AFRICAN AMERICAN > 60
[2018-11-05] MEDS: Insulin Regular 100 units/ml SC SCH ×3 (07:30→16:16)
[2018-11-05 08:48] VITALS: RESP 20; O2SAT 95
[2018-11-05] MEDS ORDERED: Santyl Collagenase OINTMENT TOP SCH (09:00)
--- NOTE | 2018-11-05 09:01 | CP.PCM.PN ---
Subjective - Date & Time of Evaluation Date of Evaluation: 11/05/18 Time of Evaluation: 08:52 - Subjective Subjective: General Surgery Pt seen and examined this AM. She is s/p ERCP yesterday with stone removal. Afebrile. Pt denies any abdominal pain today. Tolerating diet. Labs and vitals noted. T bili normal. PE Gen: Pt standing in room in NAD Skin: warm and dry Cardio: s1s2 RRR Lungs: CTA bilaterally Abd: Soft NTND Extr: (-) calf tenderness bilaterally A/P Choledocolithiasis Pt with no abdominal pain T bili normal Surgery signing off, reconsult if needed. Objective - Vital Signs/Intake and Output Vital Signs (last 24 hours): Temp Pulse Resp BP Pulse Ox 98.1 F 53 L 20 126/66 95 11/05/18 08:47 11/05/18 08:47 11/05/18 08:47 11/05/18 08:47 11/05/18 08:47 - Medications Medications: Current Medications Alendronate Sodium (Fosamax) 70 mg PO MON [facility] Last Admin: 11/01/18 09:58 Dose: Not Given Collagenase (Santyl) 1 applic TOP DAILY [facility] Dextrose (Dextrose 50% Inj) 0 ml IV STAT PRN; Protocol PRN Reason: Hypoglycemia Protocol Last Admin: 11/01/18 06:14 Dose: 50 ml Dextrose (Glutose 15) 0 gm PO ONCE PRN; Protocol PRN Reason: Hypoglycemia Protocol Escitalopram Oxalate (Lexapro) 10 mg PO DAILY [facility] Last Admin: 11/04/18 11:26 Dose: 10 mg Glucagon (Glucagen Diagnostic Kit) 0 mg IM STAT PRN; Protocol PRN Reason: Hypoglycemia Protocol Home Med (Bictegrav/Emtricit/Tenofov Ala [Biktarvy 50-200-25 Mg Tablet]) 1 tab PO DAILY [facility] Last Admin: 11/04/18 11:26 Dose: 1 tab Lactated Ringer's (Lactated Ringer's) 1,000 mls @ 100 mls/hr IV .Q10H [facility] Last Admin: 11/04/18 22:00 Dose: 100 mls/hr Insulin Human Regular (Humulin R) 0 units SC ACHS [facility]; Protocol Last Admin: 11/05/18 07:30 Dose: Not Given Lactobacillus Acidophilus (Bacid Acidophilus) 1 cap PO BID [facility] Last Admin: 11/04/18 17:36 Dose: 1 cap Metformin HCl (Glucophage) 1,000 mg PO BID [facility] Last Admin: 11/01/18 09:58 Dose: Not Given Naproxen (Naproxen) 500 mg PO BID [facility] Last Admin: 11/03/18 08:50 Dose: 500 mg Ondansetron HCl (Zofran Inj) 4 mg IVP Q4 PRN PRN Reason: Nausea/Vomiting Oxybutynin Chloride (Ditropan Tab) 5 mg PO BID [facility] Last Admin: 11/04/18 17:37 Dose: 5 mg Pravastatin Sodium (Pravachol) 20 mg PO DAILY [facility] Last Admin: 11/04/18 11:26 Dose: 20 mg Sitagliptin Phosphate (Januvia) 50 mg PO BID [facility] Last Admin: 11/04/18 17:36 Dose: 50 mg - Labs Labs: 11/05/18 05:40 11/05/18 05:40 PT 12.8 Seconds (9.8-13.1) 11/01/18 05:30 INR 1.1 11/01/18 05:30 APTT 29.3 Seconds (25.6-37.1) 11/01/18 05:30
[2018-11-05] MEDS: Patient's Own Med (Bictegrav/Emtricit/Tenofov Ala [Biktarvy 50-200-25 Mg Tablet] 1 TAB) PO SCH (09:49)
[2018-11-05] MEDS: Pravastatin Sodium 20 MG TAB PO SCH (09:52)
[2018-11-05] MEDS: Lactobacillus Acidophilus 500 MU Cap PO SCH ×2 (09:58→16:18)
--- NOTE | 2018-11-05 14:05 | CP.PCM.PN ---
Subjective - Date & Time of Evaluation Date of Evaluation: 11/05/18 Time of Evaluation: 08:00 - Subjective Subjective: doing well afebrile Objective - Vital Signs/Intake and Output Vital Signs (last 24 hours): Temp Pulse Resp BP Pulse Ox 98.1 F 53 L 20 126/66 95 11/05/18 08:47 11/05/18 08:47 11/05/18 08:47 11/05/18 08:47 11/05/18 08:47 - Medications Medications: Current Medications Alendronate Sodium (Fosamax) 70 mg PO MON [facility] Last Admin: 11/01/18 09:58 Dose: Not Given Collagenase (Santyl) 1 applic TOP DAILY [facility] Dextrose (Dextrose 50% Inj) 0 ml IV STAT PRN; Protocol PRN Reason: Hypoglycemia Protocol Last Admin: 11/01/18 06:14 Dose: 50 ml Dextrose (Glutose 15) 0 gm PO ONCE PRN; Protocol PRN Reason: Hypoglycemia Protocol Escitalopram Oxalate (Lexapro) 10 mg PO DAILY [facility] Last Admin: 11/05/18 09:52 Dose: 10 mg Glucagon (Glucagen Diagnostic Kit) 0 mg IM STAT PRN; Protocol PRN Reason: Hypoglycemia Protocol Home Med (Bictegrav/Emtricit/Tenofov Ala [Biktarvy 50-200-25 Mg Tablet]) 1 tab PO DAILY [facility] Last Admin: 11/05/18 09:49 Dose: 1 tab Lactated Ringer's (Lactated Ringer's) 1,000 mls @ 100 mls/hr IV .Q10H [facility] Last Admin: 11/04/18 22:00 Dose: 100 mls/hr Insulin Human Regular (Humulin R) [facility]; Protocol Last Admin: 11/05/18 12:27 Dose: Not Given Lactobacillus Acidophilus (Bacid Acidophilus) 1 cap PO BID [facility] Last Admin: 11/05/18 09:58 Dose: 1 cap Metformin HCl (Glucophage) 1,000 mg PO BID [facility] Last Admin: 11/01/18 09:58 Dose: Not Given Naproxen (Naproxen) 500 mg PO BID [facility] Last Admin: 11/03/18 08:50 Dose: 500 mg Ondansetron HCl (Zofran Inj) 4 mg IVP Q4 PRN PRN Reason: Nausea/Vomiting Oxybutynin Chloride (Ditropan Tab) 5 mg PO BID [facility] Last Admin: 11/05/18 09:49 Dose: 5 mg Pravastatin Sodium (Pravachol) 20 mg PO DAILY [facility] Last Admin: 11/05/18 09:52 Dose: 20 mg Sitagliptin Phosphate (Januvia) 50 mg PO BID [facility] Last Admin: 11/05/18 09:56 Dose: 50 mg - Labs Labs: 11/05/18 05:40 11/05/18 05:40 PT 12.8 Seconds (9.8-13.1) 11/01/18 05:30 INR 1.1 11/01/18 05:30 APTT 29.3 Seconds (25.6-37.1) 11/01/18 05:30 - Constitutional Appears: Non-toxic, Chronically Ill - Head Exam Head Exam: NORMOCEPHALIC - Eye Exam Eye Exam: PERRL - ENT Exam ENT Exam: Mucous Membranes Dry - Neck Exam Neck Exam: absent: Lymphadenopathy - Respiratory Exam Respiratory Exam: Decreased Breath Sounds - Cardiovascular Exam Cardiovascular Exam: REGULAR RHYTHM - GI/Abdominal Exam GI & Abdominal Exam: Distended, Soft - Rectal Exam Rectal Exam: Deferred Assessment and Plan (1) Choledocholithiasis Status: Resolved (2) Transaminitis Status: Resolved (3) Ascending cholangitis Status: Acute - Assessment and Plan (Free Text) Assessment: ok to d/c IV antibiotics follow up as out pt
--- NOTE | 2018-11-05 14:20 | CP.PCM.PN ---
Subjective - Date & Time of Evaluation Date of Evaluation: 11/02/18 Time of Evaluation: 18:30 - Subjective Subjective: no overnight events Objective - Vital Signs/Intake and Output Vital Signs (last 24 hours): Temp Pulse Resp BP Pulse Ox 98.1 F 53 L 20 126/66 95 11/05/18 08:47 11/05/18 08:47 11/05/18 08:47 11/05/18 08:47 11/05/18 08:47 - Medications Medications: Current Medications Alendronate Sodium (Fosamax) 70 mg PO MON [facility] Last Admin: 11/01/18 09:58 Dose: Not Given Collagenase (Santyl) 1 applic TOP DAILY [facility] Dextrose (Dextrose 50% Inj) 0 ml IV STAT PRN; Protocol PRN Reason: Hypoglycemia Protocol Last Admin: 11/01/18 06:14 Dose: 50 ml Dextrose (Glutose 15) 0 gm PO ONCE PRN; Protocol PRN Reason: Hypoglycemia Protocol Escitalopram Oxalate (Lexapro) 10 mg PO DAILY [facility] Last Admin: 11/05/18 09:52 Dose: 10 mg Glucagon (Glucagen Diagnostic Kit) 0 mg IM STAT PRN; Protocol PRN Reason: Hypoglycemia Protocol Home Med (Bictegrav/Emtricit/Tenofov Ala [Biktarvy 50-200-25 Mg Tablet]) 1 tab PO DAILY [facility] Last Admin: 11/05/18 09:49 Dose: 1 tab Lactated Ringer's (Lactated Ringer's) 1,000 mls @ 100 mls/hr IV .Q10H [facility] Last Admin: 11/04/18 22:00 Dose: 100 mls/hr Insulin Human Regular (Humulin R) [facility]; Protocol Last Admin: 11/05/18 12:27 Dose: Not Given Lactobacillus Acidophilus (Bacid Acidophilus) 1 cap PO BID [facility] Last Admin: 11/05/18 09:58 Dose: 1 cap Metformin HCl (Glucophage) 1,000 mg PO BID [facility] Last Admin: 11/01/18 09:58 Dose: Not Given Naproxen (Naproxen) 500 mg PO BID [facility] Last Admin: 11/03/18 08:50 Dose: 500 mg Ondansetron HCl (Zofran Inj) 4 mg IVP Q4 PRN PRN Reason: Nausea/Vomiting Oxybutynin Chloride (Ditropan Tab) 5 mg PO BID [facility] Last Admin: 11/05/18 09:49 Dose: 5 mg Pravastatin Sodium (Pravachol) 20 mg PO DAILY [facility] Last Admin: 11/05/18 09:52 Dose: 20 mg Sitagliptin Phosphate (Januvia) 50 mg PO BID [facility] Last Admin: 11/05/18 09:56 Dose: 50 mg - Labs Labs: 11/05/18 05:40 11/05/18 05:40 PT 12.8 Seconds (9.8-13.1) 11/01/18 05:30 INR 1.1 11/01/18 05:30 APTT 29.3 Seconds (25.6-37.1) 11/01/18 05:30 - Head Exam Head Exam: NORMOCEPHALIC - Respiratory Exam Respiratory Exam: Clear to Ausculation Bilateral, NORMAL BREATHING PATTERN - Cardiovascular Exam Cardiovascular Exam: REGULAR RHYTHM - GI/Abdominal Exam GI & Abdominal Exam: Soft, Normal Bowel Sounds Assessment and Plan - Assessment and Plan (Free Text) Assessment: 73 yo female with cbd stones doing well ct noted for ercp
--- NOTE | 2018-11-05 14:29 | CP.PCM.PN ---
Subjective - Date & Time of Evaluation Date of Evaluation: 11/03/18 Time of Evaluation: 16:15 - Subjective Subjective: no overnight events Objective - Vital Signs/Intake and Output Vital Signs (last 24 hours): Temp Pulse Resp BP Pulse Ox 98.1 F 53 L 20 126/66 95 11/05/18 08:47 11/05/18 08:47 11/05/18 08:47 11/05/18 08:47 11/05/18 08:47 - Medications Medications: Current Medications Alendronate Sodium (Fosamax) 70 mg PO MON [facility] Last Admin: 11/01/18 09:58 Dose: Not Given Collagenase (Santyl) 1 applic TOP DAILY [facility] Dextrose (Dextrose 50% Inj) 0 ml IV STAT PRN; Protocol PRN Reason: Hypoglycemia Protocol Last Admin: 11/01/18 06:14 Dose: 50 ml Dextrose (Glutose 15) 0 gm PO ONCE PRN; Protocol PRN Reason: Hypoglycemia Protocol Escitalopram Oxalate (Lexapro) 10 mg PO DAILY [facility] Last Admin: 11/05/18 09:52 Dose: 10 mg Glucagon (Glucagen Diagnostic Kit) 0 mg IM STAT PRN; Protocol PRN Reason: Hypoglycemia Protocol Home Med (Bictegrav/Emtricit/Tenofov Ala [Biktarvy 50-200-25 Mg Tablet]) 1 tab PO DAILY [facility] Last Admin: 11/05/18 09:49 Dose: 1 tab Lactated Ringer's (Lactated Ringer's) 1,000 mls @ 100 mls/hr IV .Q10H [facility] Last Admin: 11/04/18 22:00 Dose: 100 mls/hr Insulin Human Regular ([facility]ulin R) [facility]; Protocol Last Admin: 11/05/18 12:27 Dose: Not Given Lactobacillus Acidophilus (Bacid Acidophilus) 1 cap PO BID [facility] Last Admin: 11/05/18 09:58 Dose: 1 cap Metformin HCl (Glucophage) 1,000 mg PO BID [facility] Last Admin: 11/01/18 09:58 Dose: Not Given Naproxen (Naproxen) 500 mg PO BID [facility] Last Admin: 11/03/18 08:50 Dose: 500 mg Ondansetron HCl (Zofran Inj) 4 mg IVP Q4 PRN PRN Reason: Nausea/Vomiting Oxybutynin Chloride (Ditropan Tab) 5 mg PO BID [facility] Last Admin: 11/05/18 09:49 Dose: 5 mg Pravastatin Sodium (Pravachol) 20 mg PO DAILY [facility] Last Admin: 11/05/18 09:52 Dose: 20 mg Sitagliptin Phosphate (Januvia) 50 mg PO BID [facility] Last Admin: 11/05/18 09:56 Dose: 50 mg - Labs Labs: 11/05/18 05:40 11/05/18 05:40 PT 12.8 Seconds (9.8-13.1) 11/01/18 05:30 INR 1.1 11/01/18 05:30 APTT 29.3 Seconds (25.6-37.1) 11/01/18 05:30 - Head Exam Head Exam: NORMOCEPHALIC - Respiratory Exam Respiratory Exam: Clear to Ausculation Bilateral, NORMAL BREATHING PATTERN - Cardiovascular Exam Cardiovascular Exam: REGULAR RHYTHM - GI/Abdominal Exam GI & Abdominal Exam: Soft, Normal Bowel Sounds Assessment and Plan - Assessment and Plan (Free Text) Assessment: 73 with cbd stones doing well plan for ercp
--- NOTE | 2018-11-05 14:53 | CP.PCM.PN ---
Subjective - Date & Time of Evaluation Date of Evaluation: 11/05/18 Time of Evaluation: 14:52 - Subjective Subjective: no overrnight events Objective - Vital Signs/Intake and Output Vital Signs (last 24 hours): Temp Pulse Resp BP Pulse Ox 98.1 F 53 L 20 126/66 95 11/05/18 08:47 11/05/18 08:47 11/05/18 08:47 11/05/18 08:47 11/05/18 08:47 - Medications Medications: Current Medications Alendronate Sodium (Fosamax) 70 mg PO MON [facility] Last Admin: 11/01/18 09:58 Dose: Not Given Collagenase (Santyl) 1 applic TOP DAILY [facility] Dextrose (Dextrose 50% Inj) 0 ml IV STAT PRN; Protocol PRN Reason: Hypoglycemia Protocol Last Admin: 11/01/18 06:14 Dose: 50 ml Dextrose (Glutose 15) 0 gm PO ONCE PRN; Protocol PRN Reason: Hypoglycemia Protocol Escitalopram Oxalate (Lexapro) 10 mg PO DAILY [facility] Last Admin: 11/05/18 09:52 Dose: 10 mg Glucagon (Glucagen Diagnostic Kit) 0 mg IM STAT PRN; Protocol PRN Reason: Hypoglycemia Protocol Home Med (Bictegrav/Emtricit/Tenofov Ala [Biktarvy 50-200-25 Mg Tablet]) 1 tab PO DAILY [facility] Last Admin: 11/05/18 09:49 Dose: 1 tab Lactated Ringer's (Lactated Ringer's) 1,000 mls @ 100 mls/hr IV .Q10H [facility] Last Admin: 11/04/18 22:00 Dose: 100 mls/hr Insulin Human Regular (Humulin R) 0 units SC ACHS [facility]; Protocol Last Admin: 11/05/18 12:27 Dose: Not Given Lactobacillus Acidophilus (Bacid Acidophilus) 1 cap PO BID [facility] Last Admin: 11/05/18 09:58 Dose: 1 cap Metformin HCl (Glucophage) 1,000 mg PO BID [facility] Last Admin: 11/01/18 09:58 Dose: Not Given Naproxen (Naproxen) 500 mg PO BID [facility] Last Admin: 11/03/18 08:50 Dose: 500 mg Ondansetron HCl (Zofran Inj) 4 mg IVP Q4 PRN PRN Reason: Nausea/Vomiting Oxybutynin Chloride (Ditropan Tab) 5 mg PO BID [facility] Last Admin: 11/05/18 09:49 Dose: 5 mg Pravastatin Sodium (Pravachol) 20 mg PO DAILY [facility] Last Admin: 11/05/18 09:52 Dose: 20 mg Sitagliptin Phosphate (Januvia) 50 mg PO BID [facility] Last Admin: 11/05/18 09:56 Dose: 50 mg - Labs Labs: 11/05/18 05:40 11/05/18 05:40 PT 12.8 Seconds (9.8-13.1) 11/01/18 05:30 INR 1.1 11/01/18 05:30 APTT 29.3 Seconds (25.6-37.1) 11/01/18 05:30 - Head Exam Head Exam: NORMOCEPHALIC - Neck Exam Neck Exam: Normal Inspection - Respiratory Exam Respiratory Exam: Clear to Ausculation Bilateral, NORMAL BREATHING PATTERN - Cardiovascular Exam Cardiovascular Exam: REGULAR RHYTHM - GI/Abdominal Exam GI & Abdominal Exam: Soft, Normal Bowel Sounds Assessment and Plan - Assessment and Plan (Free Text) Assessment: 73 yo female with cbd stones doing well dc home
--- NOTE | 2018-11-05 16:47 | CP.PCM.DIS ---
Provider - Provider Date of Admission: 10/31/18 05:27 Attending physician: Mina Reyes MD Consults: 10/31/18 05:29 Surgery [General Surgery Consult] Stat Comment: Consulting Provider: Gigi Felipe Consulting Physician: Gigi Felipe Reason for Consult: choledocholithiasis 10/31/18 06:36 Gastroenterology Consult Stat Comment: Consulting Provider: Bashir Freedman Consulting Physician: Bashir Freedman Reason for Consult: choledocholithiasis 10/31/18 11:24 Case Management Referral Routine Comment: Physician Instructions: Reason For Exam: Reason for Referral: Discharge Planning Nursing Referral for Wound Care Routine Comment: Physician Instructions: Reason For Exam: Anya feet ulcers, low pippa score Social Work Referral Routine Comment: discharge planning Physician Instructions: Reason For Exam: discharge planning 10/31/18 11:38 Podiatry Consult Routine Comment: anya foot ulcers Consulting Provider: Jairo Andrade Consulting Physician: Jairo Andrade Reason for Consult: anya foot ulcers 11/02/18 11:49 Infectious Disease Consult Routine Comment: Consulting Provider: Efren Coats Consulting Physician: Efren Coats Reason for Consult: Pt with HIV on HAART therapy Time Spent in preparation of Discharge (in minutes): 35 Diagnosis - Discharge Diagnosis (1) Choledocholithiasis Status: Resolved (2) Transaminitis Status: Resolved (3) Abdominal pain Status: Resolved Hospital Course - Lab Results Lab Results: Micro Results 10/31/18 06:25 Blood Blood Culture - Final NO GROWTH AFTER 5 DAYS 10/31/18 06:25 Blood Gram Stain - Final TEST NOT PERFORMED 10/31/18 05:55 Blood Blood Culture - Final NO GROWTH AFTER 5 DAYS 10/31/18 05:55 Blood Gram Stain - Final TEST NOT PERFORMED Most Recent Lab Values WBC 8.0 K/uL (4.8-10.8) 11/05/18 05:40 RBC 3.36 Mil/uL (3.80-5.20) L 11/05/18 05:40 Hgb 10.6 g/dL (12.0-16.0) L 11/05/18 05:40 Hct 30.9 % (34.0-47.0) L 11/05/18 05:40 MCV 91.9 fl (81.0-99.0) 11/05/18 05:40 MCH 31.6 pg (27.0-31.0) H 11/05/18 05:40 MCHC 34.4 g/dL (33.0-37.0) 11/05/18 05:40 RDW 19.1 % (11.5-14.5) H 11/05/18 05:40 Plt Count 283 K/uL (130-400) 11/05/18 05:40 MPV 9.0 fl (7.2-11.7) 10/31/18 01:33 Neut % (Auto) 49.5 % (50.0-75.0) L 10/31/18 01:33 Lymph % (Auto) 40.7 % (20.0-40.0) H 10/31/18 01:33 [place] % (Auto) 7.2 % (0.0-10.0) 10/31/18 01:33 Eos % (Auto) 1.8 % (0.0-4.0) 10/31/18 01:33 Baso % (Auto) 0.8 % (0.0-2.0) 10/31/18 01:33 Neut # (Auto) 4.4 K/uL (1.8-7.0) 10/31/18 01:33 Lymph # (Auto) 3.6 K/uL (1.0-4.3) 10/31/18 01:33 [place] # (Auto) 0.6 K/uL (0.0-0.8) 10/31/18 01:33 Eos # (Auto) 0.2 K/uL (0.0-0.7) 10/31/18 01:33 Baso # (Auto) 0.1 K/uL (0.0-0.2) 10/31/18 01:33 PT 12.8 Seconds (9.8-13.1) 11/01/18 05:30 INR 1.1 11/01/18 05:30 APTT 29.3 Seconds (25.6-37.1) 11/01/18 05:30 Sodium 139 mmol/l (132-148) 11/05/18 05:40 Potassium 4.4 MMOL/L (3.6-5.0) 11/05/18 05:40 Chloride 108 mmol/L (98-107) H 11/05/18 05:40 Carbon Dioxide 25 mmol/L (22-30) 11/05/18 05:40 Anion Gap 10 (10-20) 11/05/18 05:40 BUN 5 mg/dl (7-17) L 11/05/18 05:40 Creatinine 0.9 mg/dl (0.7-1.2) 11/05/18 05:40 Est GFR ( Amer) > 60 11/05/18 05:40 Est GFR (Non-Af Amer) > 60 11/05/18 05:40 POC Glucose (mg/dL) 99 mg/dL (65-110) 11/05/18 16:15 Random Glucose 94 mg/dL (65-105) 11/05/18 05:40 Lactic Acid 0.6 MMOL/L (0.7-2.1) L 10/31/18 05:55 Calcium 9.9 mg/dL (8.4-10.2) 11/05/18 05:40 Phosphorus 3.0 mg/dl (2.5-4.5) 11/05/18 05:40 Magnesium 1.6 MG/DL (1.6-2.3) 11/05/18 05:40 Total Bilirubin 0.8 mg/dl (0.2-1.3) 11/05/18 05:40 AST 107 U/L (14-36) H D 11/05/18 05:40 ALT 94 U/L (9-52) H 11/05/18 05:40 Alkaline Phosphatase 411 U/L (38-126) H D 11/05/18 05:40 Total Protein 8.7 G/DL (6.3-8.2) H 11/05/18 05:40 Albumin 3.2 g/dL (3.5-5.0) L 11/05/18 05:40 Globulin 5.5 gm/dL (2.2-3.9) H 11/05/18 05:40 Albumin/Globulin Ratio 0.6 (1.0-2.1) L 11/05/18 05:40 Triglycerides 88 mg/DL (0-149) 11/01/18 05:30 Cholesterol 136 mg/dL (0-199) 11/01/18 05:30 LDL Cholesterol Direct 84 mg/dL (0-129) 11/01/18 05:30 HDL Cholesterol 34 MG/DL (30-70) 11/01/18 05:30 Amylase 118 U/L (30-110) H 11/03/18 05:40 Lipase 153 U/L (23-300) 11/03/18 05:40 Alpha Fetoprotein 3.2 IU/mL (0.0-7.22) 11/01/18 10:57 CA 19-9 Antigen < 1.4 U/mL (0-37) 11/01/18 10:57 Vitamin B12 883 pg/mL (239-931) 11/01/18 05:30 Thyroxine (T4) 7.31 ug/dl (5.5-11.0) 11/01/18 05:30 Total T3 0.606 nmol/L (1.49-2.60) L 11/01/18 05:30 TSH 3rd Generation 2.00 mIU/ML (0.46-4.68) 11/01/18 05:30 Urine Color Yellow (YELLOW) 11/01/18 07:13 Urine Clarity Clear (Clear) 11/01/18 07:13 Urine pH 8.0 (5.0-8.0) 11/01/18 07:13 Ur Specific Wells 1.017 (1.003-1.030) 11/01/18 07:13 Urine Protein Negative mg/dL (NEGATIVE) 11/01/18 07:13 Urine Glucose (UA) Neg mg/dL (Normal) 11/01/18 07:13 Urine Ketones Negative mg/dL (NEGATIVE) 11/01/18 07:13 Urine Blood Negative (NEGATIVE) 11/01/18 07:13 Urine Nitrate Negative (NEGATIVE) 11/01/18 07:13 Urine Bilirubin Negative (NEGATIVE) 11/01/18 07:13 Urine Urobilinogen 2.0 mg/dL (0.2-1.0) H 11/01/18 07:13 Ur Leukocyte Esterase Neg Amy/uL (Negative) 11/01/18 07:13 Urine RBC (Auto) 2 /hpf (0-3) 11/01/18 07:13 Urine Microscopic WBC 1 /hpf (0-5) 11/01/18 07:13 Ur Squamous Epith Cells < 1 /hpf (0-5) 11/01/18 07:13 - Hospital Course Hospital Course: Pt is a 73 y/o female with hx of Cholelithiasis and cholecystectomy who presented to [facility] with acute abdominal pain and found to have transaminitis and Abdomen CT significant for dilated distal CBD. Pt had ERCP completed 11/04 which did not show stone in CBD and no filling defect. Her transaminitis on trended down. Her diet was advanced to regular which she was able to tolerated well. She was cleared for discharge by GI and Surgery. [place] noting that pt had Abdomen/pelvis CT which showed a hypodense lesion on liver, however not seen on Liver CT. Advised to follow up with Dr. Reyes, Surgery, and GI. Discharge Exam - Head Exam Head Exam: NORMOCEPHALIC - Eye Exam Eye Exam: Normal appearance - ENT Exam ENT Exam: Mucous Membranes Moist - Respiratory Exam Respiratory Exam: Clear to PA & Lateral - Cardiovascular Exam Cardiovascular Exam: REGULAR RHYTHM - GI/Abdominal Exam GI & Abdominal Exam: Normal Bowel Sounds - Extremities Exam Extremities exam: normal inspection - Neurological Exam Neurological exam: Alert - Psychiatric Exam Psychiatric exam: Normal Affect - Skin Skin Exam: Normal Color Discharge Plan - Follow Up Plan Condition: FAIR Disposition: HOME/ ROUTINE Instructions: Gallstones (DC), Endoscopic Retrograde Cholangiopancreatography (DC), Acute Abdominal Pain (DC), Acute Abdominal Pain (GEN) Additional Instructions: hacer uyen con beltran primario dentro 1 semana Referrals: Mina Reyes MD [Staff Provider] - Gigi Felipe MD [Staff Provider] - Bashir Freedman MD, PhD [Staff Provider] - Jairo Andrade DPM [Staff Provider] -
[2018-11-05 16:52] VITALS: BP 119/66; PULSE 60; TEMP 97.4
== END 2018-11-05 19:45 | disposition home health service (06) | DRG 445 ==
LOC: H.ER 00:17 → H.ERHOLD 05:27 → H.MEDSURG1 08:37
PROVIDERS: ADMIT Internal Medicine; ATTEND Internal Medicine
PROC: BF10YZZ Fluoroscopy of Bile Ducts using Other Contrast (ICD-10-PCS; 2018-11-04)
PROC: 0F798ZZ Dilation of Common Bile Duct, Via Natural or Artificial Opening Endoscopic (ICD-10-PCS; 2018-11-04)
PROC: 0FC98ZZ Extirpation of Matter from Common Bile Duct, Via Natural or Artificial Opening Endoscopic (ICD-10-PCS; principal; 2018-11-04 08:30)
DX: K80.32 Calculus of bile duct with acute cholangitis without obstruction (principal); L97.329 Non-pressure chronic ulcer of left ankle with unspecified severity; L97.319 Non-pressure chronic ulcer of right ankle with unspecified severity; E11.622 Type 2 diabetes mellitus with other skin ulcer; E11.51 Type 2 diabetes mellitus with diabetic peripheral angiopathy without gangrene; Z21 Asymptomatic human immunodeficiency virus [HIV] infection status; E03.9 Hypothyroidism, unspecified; I10 Essential (primary) hypertension; E78.00 Pure hypercholesterolemia, unspecified; E78.5 Hyperlipidemia, unspecified; K44.9 Diaphragmatic hernia without obstruction or gangrene; Z96.643 Presence of artificial hip joint, bilateral; Z79.84 Long term (current) use of oral hypoglycemic drugs